=== PATIENT | male | born 1985 | race American Indian/Alaskan Native ===

== ENCOUNTER 2022-01-19 15:19 | Inpatient (IN) | payer SELFPAY ==
[2022-01-19 18:59] LABS: Hematocrit 34.1 % (35.5-45.6); Hemoglobin 11.5 gm/dl (11.8-15.2); Mean Corpuscular HGB Conc 34 % (32-34); Mean Corpuscular Volume 86 fl (84-94); Platelet Count 168 K/mm3 (140-440); Red Blood Count 3.96 M/mm3 (3.65-5.03); Red Cell Distribution Width 14.7 % (13.2-15.2)
[2022-01-19 19:11] LABS: Albumin 4.4 g/dL (3.9-5); Calcium 6.9 mg/dL (8.4-10.2)
[2022-01-19] MEDS ORDERED: ALBUTEROL 2.5 MG/3 ML NEBU IH ONE (20:26)
[2022-01-19] MEDS ORDERED: INSULIN REGULAR, HUMAN 100 UNITS/1 ML IV ONE ×2 (20:27→22:37)
[2022-01-19] MEDS ORDERED: CALCIUM GLUCONATE 1,000 MG in SODIUM CHLORIDE 0.9% 100 ML IV ONE (20:27)
[2022-01-19] MEDS ORDERED: SODIUM CHLORIDE 0.9% 1000 ML 1,000 ML IV ONE ×3 (20:27→22:40)
[2022-01-19] MEDS ORDERED: SODIUM POLYSTYRENE 15 GM/60 ML ORAL LIQD PO ONE (20:27)
[2022-01-19] MEDS ORDERED: DEXTROSE 50% IN WATER (25GM) 50 ML SYRINGE IV ONE ×3 (20:27→22:36)
--- NOTE | 2022-01-19 20:34 | Emergency Department Report ---
ED N/V/D HPI - General Chief complaint: Nausea/Vomiting/Diarrhea Stated complaint: N/V X5 BAGS/ GENERAL WEAKNESS Time Seen by Provider: 01/19/22 20:10 Source: patient, EMS Mode of arrival: Stretcher Limitations: No Limitations - History of Present Illness Initial comments: 36-year-old male with past medical history of HIV with undetectable viral load and hypertension presents to the hospital with complaints of generalized fatigue, weakness, and nausea and vomiting with decreased p.o. intake for the past 3 to 4 days. Patient states 1 month ago was PMD informed him that he had renal insufficiency and needed to follow-up with a race car driver. Patient has been unable to follow-up due to insurance issues. Patient denies abdominal pain, previous abdominal surgeries, fever, shortness of breath, chest pain, or dysuria. Increased urinary output reported. Current medications include carvedilol 12.5 mg twice daily Amlodipine 10 mg daily Tivicay 50 mg daily - Related Data Allergies Allergy/AdvReac Type Severity Reaction Status Date / Time No Known Allergies Allergy Unverified 01/19/22 15:40 ED Review of Systems ROS: Stated complaint: N/V X5 BAGS/ GENERAL WEAKNESS Other details as noted in HPI Comment: All other systems reviewed and negative ED Past Medical Hx - Past Medical History Hx Hypertension: Yes Hx HIV: Yes ED Physical Exam - General Limitations: No Limitations - Other Other exam information: General: No acute distress Head: Atraumatic Eyes: normal appearance ENT: Moist mucous membranes Neck: Normal appearance, no midline tenderness Chest: Clear to auscultation bilaterally CV: Regular rate and rhythm Abdomen: Soft, normal bowel sounds, nontender, nondistended, no rebound or guarding Back: Normal inspection Extremity: Normal inspection, full range of motion, no edema Neuro: Alert O x 3, no facial asymmetry, speech clear, no gross motor sensory deficit Psych: Appropriate behavior Skin: No rash ED Course Vital Signs 01/19/22 01/19/22 01/19/22 15:35 20:48 20:55 Temperature 98.7 F Pulse Rate 82 82 Pulse Rate [ 85 Bilateral Throughout] Respiratory 18 20 Rate Blood Pressure Blood Pressure 172/84 [Left] O2 Sat by Pulse 96 96 Oximetry 01/19/22 01/19/22 01/19/22 21:00 21:15 21:33 Temperature Pulse Rate 83 85 104 H Pulse Rate [ Bilateral Throughout] Respiratory 18 16 Rate Blood Pressure 214/128 191/148 211/113 Blood Pressure [Left] O2 Sat by Pulse 100 100 Oximetry - Reevaluation(s) Reevaluation #1: 01/19/22 22:43 Repeat blood pressure reveals that patient is hypertensive. 1 dose of hydralazine provided. Cardene drip ordered for titration of blood pressure. - Consultations Consultation #1: 01/19/22 22:41 case d/w DR Angélica Renee nephrology. He recommends additional meds: Second dose of D50 and insulin, Kayexalate 60 mEq after Zofran, additional amp of sodium bicarb, Bumex 2 mg IV, and bicarb drip at 125 mL/h. Recommends repeat BMP in 3 hours. If no improvement in potassium patient will likely require emergent dialysis and he request to be recontacted. Repeat BMP ordered for 1:30 AM. Hospitalist will be informed 01/19/22 22:52 Case discussed with critical care doctor Dr. Linton who will be involved in case during admission ED Medical Decision Making - Lab Data Result diagrams: 01/19/22 18:38 01/19/22 18:38 Lab Results 01/19/22 01/19/22 01/19/22 Range/Units 18:38 18:38 20:36 WBC 7.2 (4.5-11.0) K/mm3 RBC 3.96 (3.65-5.03) M/mm3 Hgb 11.5 L (11.8-15.2) gm/dl Hct 34.1 L (35.5-45.6) % MCV 86 (84-94) fl MCH 29 (28-32) pg MCHC 34 (32-34) % RDW 14.7 (13.2-15.2) % Plt Count 168 (140-440) K/mm3 Add Manual Diff Complete Total Counted 100 Seg Neuts % (Manual) 63.0 (40.0-70.0) % Band Neutrophils % 0 % Lymphocytes % (Manual) 33.0 (13.4-35.0) % Reactive Lymphs % (Man) 0 % Monocytes % (Manual) 1.0 (0.0-7.3) % Eosinophils % (Manual) 2.0 (0.0-4.3) % Basophils % (Manual) 1.0 (0.0-1.8) % Metamyelocytes % 0 % Myelocytes % 0 % Promyelocytes % 0 % Blast Cells % 0 % Nucleated RBC % Not Reportable Seg Neutrophils # Man 4.5 (1.8-7.7) K/mm3 Band Neutrophils # 0.0 K/mm3 Lymphocytes # (Manual) 2.4 (1.2-5.4) K/mm3 Abs React Lymphs (Man) 0.0 K/mm3 Monocytes # (Manual) 0.1 (0.0-0.8) K/mm3 Eosinophils # (Manual) 0.1 (0.0-0.4) K/mm3 Basophils # (Manual) 0.1 (0.0-0.1) K/mm3 Metamyelocytes # 0.0 K/mm3 Myelocytes # 0.0 K/mm3 Promyelocytes # 0.0 K/mm3 Blast Cells # 0.0 K/mm3 WBC Morphology Not Reportable Hypersegmented Neuts Not Reportable Hyposegmented Neuts Not Reportable Hypogranular Neuts Not Reportable Smudge Cells Not Reportable Toxic Granulation Not Reportable Toxic Vacuolation Not Reportable Dohle Bodies Not Reportable Pelger-Huet Anomaly Not Reportable Kallie Rods Not Reportable Platelet Estimate Consistent w auto Clumped Platelets Not Reportable Plt Clumps, EDTA Not Reportable Large Platelets Not Reportable Giant Platelets Not Reportable Platelet Satelliting Not Reportable Plt Morphology Comment Not Reportable RBC Morphology Not Reportable Dimorphic RBCs Not Reportable Polychromasia Not Reportable Hypochromasia Not Reportable Poikilocytosis Not Reportable Anisocytosis 1+ Microcytosis Not Reportable Macrocytosis Not Reportable Spherocytes Not Reportable Pappenheimer Bodies Not Reportable Sickle Cells Not Reportable Target Cells Not Reportable Tear Drop Cells Not Reportable Ovalocytes Not Reportable Helmet Cells Not Reportable [place] Bodies Not Reportable [place] Rings Not Reportable [place] Cells Not Reportable Bite Cells Not Reportable Crenated Cell Not Reportable Elliptocytes Not Reportable Acanthocytes (Spur) Not Reportable Rouleaux Not Reportable Hemoglobin C Crystals Not Reportable Schistocytes Not Reportable Malaria parasites Not Reportable Edgardo Bodies Not Reportable Hem Pathologist Commnt No Sodium 129 L (137-145) mmol/L Potassium 6.5 H* (3.6-5.0) mmol/L Chloride 83.3 L (98-107) mmol/L Carbon Dioxide 11 L (22-30) mmol/L Anion Gap 41 mmol/L BUN 222 H (9-20) mg/dL Creatinine 32.6 H (0.8-1.3) mg/dL Estimated GFR 2 ml/min BUN/Creatinine Ratio 7 % Glucose 107 H (75-100) mg/dL Calcium 6.9 L (8.4-10.2) mg/dL Total Bilirubin 0.40 (0.1-1.2) mg/dL AST 21 (5-40) units/L ALT 25 (7-56) units/L Alkaline Phosphatase 97 (35-129) units/L Total Protein 8.7 H (6.3-8.2) g/dL Albumin 4.4 (3.9-5) g/dL Albumin/Globulin Ratio 1.0 % Lipase 445 H (13-60) units/L Urine Color (Yellow) Urine Turbidity (Clear) Urine pH (5.0-7.0) Ur Specific [place] (1.003-1.030) Urine Protein (Negative) mg/dL Urine Glucose (UA) (Negative) mg/dL Urine Ketones (Negative) mg/dL Urine Blood (Negative) Urine Nitrite (Negative) Ur Reducing Substances Urine Bilirubin (Negative) Urine Ictotest Urine Urobilinogen (<2.0) mg/dL Ur Leukocyte Esterase (Negative) Urine WBC (Auto) (0.0-6.0) /HPF Urine RBC (Auto) (0.0-6.0) /HPF U Epithel Cells (Auto) (0-13.0) /HPF Urine Bacteria (Auto) (Negative) /HPF 01/19/ Range/Units Unknown WBC (4.5-11.0) K/mm3 RBC (3.65-5.03) M/mm3 Hgb (11.8-15.2) gm/dl Hct (35.5-45.6) % MCV (84-94) fl MCH (28-32) pg MCHC (32-34) % RDW (13.2-15.2) % Plt Count (140-440) K/mm3 Add Manual Diff Total Counted Seg Neuts % (Manual) (40.0-70.0) % Band Neutrophils % % Lymphocytes % (Manual) (13.4-35.0) % Reactive Lymphs % (Man) % Monocytes % (Manual) (0.0-7.3) % Eosinophils % (Manual) (0.0-4.3) % Basophils % (Manual) (0.0-1.8) % Metamyelocytes % % Myelocytes % % Promyelocytes % % Blast Cells % % Nucleated RBC % Seg Neutrophils # Man (1.8-7.7) K/mm3 Band Neutrophils # K/mm3 Lymphocytes # (Manual) (1.2-5.4) K/mm3 Abs React Lymphs (Man) K/mm3 Monocytes # (Manual) (0.0-0.8) K/mm3 Eosinophils # (Manual) (0.0-0.4) K/mm3 Basophils # (Manual) (0.0-0.1) K/mm3 Metamyelocytes # K/mm3 Myelocytes # K/mm3 Promyelocytes # K/mm3 Blast Cells # K/mm3 WBC Morphology Hypersegmented Neuts Hyposegmented Neuts Hypogranular Neuts Smudge Cells Toxic Granulation Toxic Vacuolation Dohle Bodies Pelger-Huet Anomaly Kallie Rods Platelet Estimate Clumped Platelets Plt Clumps, EDTA Large Platelets Giant Platelets Platelet Satelliting Plt Morphology Comment RBC Morphology Dimorphic RBCs Polychromasia Hypochromasia Poikilocytosis Anisocytosis Microcytosis Macrocytosis Spherocytes Pappenheimer Bodies Sickle Cells Target Cells Tear Drop Cells Ovalocytes Helmet Cells [place]aria[place] Bodies [place] Rings Son[place] Cells Bite Cells Crenated Cell Elliptocytes Acanthocytes (Spur) Rouleaux Hemoglobin C Crystals Schistocytes Malaria parasites Edgardo Bodies Hem Pathologist Commnt Sodium (137-145) mmol/L Potassium (3.6-5.0) mmol/L Chloride (98-107) mmol/L Carbon Dioxide (22-30) mmol/L Anion Gap mmol/L BUN (9-20) mg/dL Creatinine (0.8-1.3) mg/dL Estimated GFR ml/min BUN/Creatinine Ratio % Glucose (75-100) mg/dL Calcium (8.4-10.2) mg/dL Total Bilirubin (0.1-1.2) mg/dL AST (5-40) units/L ALT (7-56) units/L Alkaline Phosphatase (35-129) units/L Total Protein (6.3-8.2) g/dL Albumin (3.9-5) g/dL Albumin/Globulin Ratio % Lipase (13-60) units/L Urine Color Yellow (Yellow) Urine Turbidity Slightly cloudy (Clear) Urine pH 6.0 (5.0-7.0) Ur Specific [place] 1.025 (1.003-1.030) Urine Protein 100 mg/dl (Negative) mg/dL Urine Glucose (UA) Negative (Negative) mg/dL Urine Ketones Negative (Negative) mg/dL Urine Blood Trace (Negative) Urine Nitrite Negative (Negative) Ur Reducing Substances Not Reportable Urine Bilirubin Negative (Negative) Urine Ictotest Not Reportable Urine Urobilinogen 2.0 (<2.0) mg/dL Ur Leukocyte Esterase Negative (Negative) Urine WBC (Auto) 4.0 (0.0-6.0) /HPF Urine RBC (Auto) 2.0 (0.0-6.0) /HPF U Epithel Cells (Auto) 2.0 (0-13.0) /HPF Urine Bacteria (Auto) 1+ (Negative) /HPF - EKG Data -: EKG Interpreted by Ct EKG shows normal: sinus rhythm, ST-T waves (Peaked T waves) Rate: normal - EKG Data When compared to previous EKG there are: previous EKG unavailable - Radiology Data Radiology results: report reviewed CHEST 1 VIEW 01/19/2022 8:46 PM INDICATION / CLINICAL INFORMATION: n,v acute renal failure. COMPARISON: None available. FINDINGS: SUPPORT DEVICES: None. HEART / MEDIASTINUM: No significant abnormality. LUNGS / PLEURA: No significant pulmonary or pleural abnormality. No pneumothorax. ADDITIONAL FINDINGS: No significant additional findings. IMPRESSION: 1. No acute findings. CT ABDOMEN AND PELVIS WITHOUT CONTRAST INDICATION / CLINICAL INFORMATION: acute renal failure, n,v. TECHNIQUE: Axial CT images were obtained through the abdomen and pelvis without IV contrast. All CT scans at this location are performed using CT dose reduction for ALARA by means of automated exposure control. COMPARISON: None available. FINDINGS: LOWER CHEST: No significant abnormality. LIVER: No significant abnormality. GALLBLADDER: No significant abnormality. BILE DUCTS: No significant abnormality. PANCREAS: No significant abnormality. SPLEEN: No significant abnormality. ADRENALS: No significant abnormality. RIGHT KIDNEY / URETER: No significant abnormality. LEFT KIDNEY / URETER: No significant abnormality. STOMACH / SMALL BOWEL: No significant abnormality. COLON: No significant abnormality. APPENDIX: No significant abnormality. PERITONEUM: No free fluid. No free air. No fluid collection. LYMPH NODES: No significant adenopathy. AORTA / ARTERIES: No significant abnormality. IVC / VEINS: No significant abnormality. URINARY BLADDER: No significant abnormality. REPRODUCTIVE ORGANS: No significant abnormality. ADDITIONAL FINDINGS: None. SKELETAL SYSTEM: No significant abnormality. IMPRESSION: 1. No acute process in the abdomen or pelvis. No urinary tract calculi or hydronephrosis. - Medical Decision Making 36-year-old male with history HIV hypertension presents to the hospital with 3 days of fatigue nausea and vomiting. Labs reveal significant renal failure likely acute on chronic with hyperkalemia and metabolic acidosis. EKG shows peaked T waves. Patient was medicated for hyperkalemia. Patient did have an episode of vomiting after Kayexalate. Zofran ordered with additional Kayexalate dosing. Patient was also treated with sodium bicarb, calcium gluconate, insulin, glucose, albuterol,and Bumex and bicarb drip orderd after consultation with nephrology. Repeat BMP ordered and pending for drawl at 1:30 AM. Patient aware that he has worsening kidney failure and may require dialysis. No signs of renal obstruction identified on noncontrast CT abdomen pelvis he seems hesitant however, he was informed that his potassium does not increase he may need to have emergent dialysis. Patient does have good urine output without signs of volume overload, leg edema, or CHF. 1 dose of hydralazine provided in Cardene drip initiated for hypertensive emergency. Patient will require ICU admission and critical care consulted. Hospitalist to admit Critical Care Time: Yes Critical care time in (mins) excluding proc time.: 40 Critical care attestation.: If time is entered above; I have spent that time in minutes in the direct care of this critically ill patient, excluding procedure time. Critical Care Time: 40 Minutes of critical care time excluding procedures were used in the care of the patient. I discussed treatment plan with the nursing team members. Patient required multiple interventions and reassessments. Spoke with hospitalist and consultants for collaborative care ED Disposition Clinical Impression: Hypertensive emergency, Acute on chronic renal failure, Hyperkalemia, Metabolic acidosis, Nausea and vomiting, HIV (human immunodeficiency virus infection) Disposition: 09 ADMITTED INPATIENT Is pt being admited?: Yes Condition: Stable Time of Disposition: 22:54 (Dr De/hosptialist)
[2022-01-19 20:54] LABS: Anisocytosis 1+; Total Cells Counted 100
[2022-01-19 20:55] LABS: Platelet Estimate Consistent w Auto
[2022-01-19] MEDS: SODIUM POLYSTYRENE 15 GM/60 ML ORAL LIQD PO ONE (21:00)
--- NOTE | 2022-01-19 21:03 | XRay Report ---
CHEST 1 VIEW 01/19/2022 8:46 PM INDICATION / CLINICAL INFORMATION: n,v acute renal failure. COMPARISON: None available. FINDINGS: SUPPORT DEVICES: None. HEART / MEDIASTINUM: No significant abnormality. LUNGS / PLEURA: No significant pulmonary or pleural abnormality. No pneumothorax. ADDITIONAL FINDINGS: No significant additional findings. IMPRESSION: 1. No acute findings. Signer Name: Atul Schilling MD Signed: 01/19/2022 8:59 PM Workstation Name: [id number]
[2022-01-19] MEDS: SODIUM BICARB 8.4% 50 MEQ/50 ML SYRINGE IV ONE (21:06)
[2022-01-19] MEDS ORDERED: hydrALAZINE 20 MG/1 ML INJ IV ONE (21:24)
[2022-01-19] MEDS ORDERED: ONDANSETRON 4 MG/2 ML INJ IV ONE (21:29)
[2022-01-19 21:55] LABS: Bacteria,Urine 1+ /HPF (Negative)
[2022-01-19] MEDS ORDERED: niCARdipine DRIP 40 MG/200 ML BAG IV ONE (21:58)
[2022-01-19 22:06] LABS: Bilirubin,Urine Negative (Negative); Color,Urine Yellow (Yellow)
[2022-01-19 22:07] LABS: Blood,Urine Trace (Negative)
--- NOTE | 2022-01-19 22:20 | Cat Scan Report ---
CT ABDOMEN AND PELVIS WITHOUT CONTRAST INDICATION / CLINICAL INFORMATION: acute renal failure, n,v. TECHNIQUE: Axial CT images were obtained through the abdomen and pelvis without IV contrast. All CT scans at this location are performed using CT dose reduction for ALARA by means of automated exposure control. COMPARISON: None available. FINDINGS: LOWER CHEST: No significant abnormality. LIVER: No significant abnormality. GALLBLADDER: No significant abnormality. BILE DUCTS: No significant abnormality. PANCREAS: No significant abnormality. SPLEEN: No significant abnormality. ADRENALS: No significant abnormality. RIGHT KIDNEY / URETER: No significant abnormality. LEFT KIDNEY / URETER: No significant abnormality. STOMACH / SMALL BOWEL: No significant abnormality. COLON: No significant abnormality. APPENDIX: No significant abnormality. PERITONEUM: No free fluid. No free air. No fluid collection. LYMPH NODES: No significant adenopathy. AORTA / ARTERIES: No significant abnormality. IVC / VEINS: No significant abnormality. URINARY BLADDER: No significant abnormality. REPRODUCTIVE ORGANS: No significant abnormality. ADDITIONAL FINDINGS: None. SKELETAL SYSTEM: No significant abnormality. IMPRESSION: 1. No acute process in the abdomen or pelvis. No urinary tract calculi or hydronephrosis. Signer Name: Atul Schilling MD Signed: 01/19/2022 10:15 PM Workstation Name: [id number]
[2022-01-19] MEDS ORDERED: BUMETANIDE 1 MG/4 ML INJ IV ONE (22:38)
[2022-01-19] MEDS ORDERED: SODIUM BICARB 8.4% 50 MEQ/50 ML SYRINGE IV ONE (22:40)
[2022-01-19] MEDS ORDERED: MORPHINE 4 MG/1 ML INJ IV PRN (22:50)
--- NOTE | 2022-01-19 22:58 | History and Physical Report ---
History of Present Illness Date of examination: 01/19/22 Date of admission: 01/19/22 Chief complaint: Nausea vomiting diarrhea History of present illness: 6-year-old male with past medical history of HIV with undetectable viral load and hypertension presents to the hospital with complaints of generalized fatigue, weakness, and nausea and vomiting with decreased p.o. intake for the past 3 to 4 days. Patient states 1 month ago was PMD informed him that he had renal insufficiency and needed to follow-up with a beater dumper. Patient has been unable to follow-up due to insurance issues. Patient denies abdominal pain, previous abdominal surgeries, fever, shortness of breath, chest pain, or dysuria. Increased urinary output reported. In the emergency room patient was found to have potassium of 6.5, anion gap 41, BUN 222 creatinine 32.6, lipase 445 case d/w DR Angélica Renee nephrology. He recommends additional meds: Second dose of D50 and insulin, Kayexalate 60 mEq after Zofran, additional amp of sodium bicarb, Bumex 2 mg IV, and bicarb drip at 125 mL/h. Recommends repeat BMP in 3 hours Past History Past Medical History: HIV/AIDS, hypertension Past Surgical History: No surgical history Social history: no significant social history Family history: hypertension Medications and Allergies Allergies Allergy/AdvReac Type Severity Reaction Status Date / Time No Known Allergies Allergy Unverified 01/19/22 15:40 Active Meds: Active Medications Nicardipine/Sodium Chloride (Cardene Drip 40 Mg/200 Ml) 40 mg in 200 mls @ 25 mls/hr IV ONCE ONE; Protocol Stop: 01/20/22 05:57 Sodium Chloride (Nacl 0.9% 1000 Ml) 1,000 mls @ 999 mls/hr IV BOLUS ONE Stop: 01/19/22 23:40 Sodium Bicarbonate 150 meq/ (Dextrose) 1,150 mls @ 125 mls/hr IV DIRECT JENNY Review of Systems Constitutional: fatigue, weakness, malaise, lethargy Gastrointestinal: nausea, vomiting, diarrhea Exam - Constitutional Vitals: Temp Pulse Resp BP Pulse Ox 98.7 F 104 H 16 211/113 100 01/19/22 15:35 01/19/22 21:33 01/19/22 21:15 01/19/22 21:33 01/19/22 21:15 General appearance: Present: no acute distress, well-nourished - EENT Eyes: Present: PERRL ENT: hearing intact, clear oral mucosa - Neck Neck: Present: supple, normal ROM - Respiratory Respiratory effort: normal Respiratory: bilateral: CTA - Cardiovascular Heart Sounds: Present: S1 & S2. Absent: rub, click - Extremities Extremities: pulses symmetrical, No edema Peripheral Pulses: within normal limits - Abdominal General gastrointestinal: Present: soft, non-tender, non-distended, normal bowel sounds Male genitourinary: Present: normal - Integumentary Integumentary: Present: clear, warm, dry - Musculoskeletal Musculoskeletal: gait normal, strength equal bilaterally - Psychiatric Psychiatric: appropriate mood/affect, intact judgment & insight - Neurologic Neurologic: CNII-XII intact, moves all extremities Results - Labs CBC & Chem 7: 01/19/22 18:38 01/19/22 18:38 Labs: Laboratory Last Values WBC 7.2 K/mm3 (4.5-11.0) 01/19/22 18:38 RBC 3.96 M/mm3 (3.65-5.03) 01/19/22 18:38 Hgb 11.5 gm/dl (11.8-15.2) L 01/19/22 18:38 Hct 34.1 % (35.5-45.6) L 01/19/22 18:38 MCV 86 fl (84-94) 01/19/22 18:38 MCH 29 pg (28-32) 01/19/22 18:38 MCHC 34 % (32-34) 01/19/22 18:38 RDW 14.7 % (13.2-15.2) 01/19/22 18:38 Plt Count 168 K/mm3 (140-440) 01/19/22 18:38 Add Manual Diff Complete 01/19/22 18:38 Total Counted 100 01/19/22 18:38 Seg Neuts % (Manual) 63.0 % (40.0-70.0) 01/19/22 18:38 Band Neutrophils % 0 % 01/19/22 18:38 Lymphocytes % (Manual) 33.0 % (13.4-35.0) 01/19/22 18:38 Reactive Lymphs % (Man) 0 % 01/19/22 18:38 Monocytes % (Manual) 1.0 % (0.0-7.3) 01/19/22 18:38 Eosinophils % (Manual) 2.0 % (0.0-4.3) 01/19/22 18:38 Basophils % (Manual) 1.0 % (0.0-1.8) 01/19/22 18:38 Metamyelocytes % 0 % 01/19/22 18:38 Myelocytes % 0 % 01/19/22 18:38 Promyelocytes % 0 % 01/19/22 18:38 Blast Cells % 0 % 01/19/22 18:38 Nucleated RBC % Not Reportable 01/19/22 18:38 Seg Neutrophils # Man 4.5 K/mm3 (1.8-7.7) 01/19/22 18:38 Band Neutrophils # 0.0 K/mm3 01/19/22 18:38 Lymphocytes # (Manual) 2.4 K/mm3 (1.2-5.4) 01/19/22 18:38 Abs React Lymphs (Man) 0.0 K/mm3 01/19/22 18:38 Monocytes # (Manual) 0.1 K/mm3 (0.0-0.8) 01/19/22 18:38 Eosinophils # (Manual) 0.1 K/mm3 (0.0-0.4) 01/19/22 18:38 Basophils # (Manual) 0.1 K/mm3 (0.0-0.1) 01/19/22 18:38 Metamyelocytes # 0.0 K/mm3 01/19/22 18:38 Myelocytes # 0.0 K/mm3 01/19/22 18:38 Promyelocytes # 0.0 K/mm3 01/19/22 18:38 Blast Cells # 0.0 K/mm3 01/19/22 18:38 WBC Morphology Not Reportable 01/19/22 18:38 Hypersegmented Neuts Not Reportable 01/19/22 18:38 Hyposegmented Neuts Not Reportable 01/19/22 18:38 Hypogranular Neuts Not Reportable 01/19/22 18:38 Smudge Cells Not Reportable 01/19/22 18:38 Toxic Granulation Not Reportable 01/19/22 18:38 Toxic Vacuolation Not Reportable 01/19/22 18:38 Dohle Bodies Not Reportable 01/19/22 18:38 Pelger-Huet Anomaly Not Reportable 01/19/22 18:38 Kallie Rods Not Reportable 01/19/22 18:38 Platelet Estimate Consistent w auto 01/19/22 18:38 Clumped Platelets Not Reportable 01/19/22 18:38 Plt Clumps, EDTA Not Reportable 01/19/22 18:38 Large Platelets Not Reportable 01/19/22 18:38 Giant Platelets Not Reportable 01/19/22 18:38 Platelet Satelliting Not Reportable 01/19/22 18:38 Plt Morphology Comment Not Reportable 01/19/22 18:38 RBC Morphology Not Reportable 01/19/22 18:38 Dimorphic RBCs Not Reportable 01/19/22 18:38 Polychromasia Not Reportable 01/19/22 18:38 Hypochromasia Not Reportable 01/19/22 18:38 Poikilocytosis Not Reportable 01/19/22 18:38 Anisocytosis 1+ 01/19/22 18:38 Microcytosis Not Reportable 01/19/22 18:38 Macrocytosis Not Reportable 01/19/22 18:38 Spherocytes Not Reportable 01/19/22 18:38 Pappenheimer Bodies Not Reportable 01/19/22 18:38 Sickle Cells Not Reportable 01/19/22 18:38 Target Cells Not Reportable 01/19/22 18:38 Tear Drop Cells Not Reportable 01/19/22 18:38 Ovalocytes Not Reportable 01/19/22 18:38 Helmet Cells Not Reportable 01/19/22 18:38 Santamaria-Gloster Bodies Not Reportable 01/19/22 18:38 Avilla Rings Not Reportable 01/19/22 18:38 Sonido Cells Not Reportable 01/19/22 18:38 Bite Cells Not Reportable 01/19/22 18:38 Crenated Cell Not Reportable 01/19/22 18:38 Elliptocytes Not Reportable 01/19/22 18:38 Acanthocytes (Spur) Not Reportable 01/19/22 18:38 Rouleaux Not Reportable 01/19/22 18:38 Hemoglobin C Crystals Not Reportable 01/19/22 18:38 Schistocytes Not Reportable 01/19/22 18:38 Malaria parasites Not Reportable 01/19/22 18:38 Edgardo Bodies Not Reportable 01/19/22 18:38 Hem Pathologist Commnt No 01/19/22 18:38 Sodium 129 mmol/L (137-145) L 01/19/22 18:38 Potassium 6.5 mmol/L (3.6-5.0) H* 01/19/22 18:38 Chloride 83.3 mmol/L (98-107) L 01/19/22 18:38 Carbon Dioxide 11 mmol/L (22-30) L 01/19/22 18:38 Anion Gap 41 mmol/L 01/19/22 18:38 BUN 222 mg/dL (9-20) H 01/19/22 18:38 Creatinine 32.6 mg/dL (0.8-1.3) H 01/19/22 18:38 Estimated GFR 2 ml/min 01/19/22 18:38 BUN/Creatinine Ratio 7 % 01/19/22 18:38 Glucose 107 mg/dL (75-100) H 01/19/22 18:38 Calcium 6.9 mg/dL (8.4-10.2) L 01/19/22 18:38 Total Bilirubin 0.40 mg/dL (0.1-1.2) 01/19/22 18:38 AST 21 units/L (5-40) 01/19/22 18:38 ALT 25 units/L (7-56) 01/19/22 18:38 Alkaline Phosphatase 97 units/L (35-129) 01/19/22 18:38 Total Protein 8.7 g/dL (6.3-8.2) H 01/19/22 18:38 Albumin 4.4 g/dL (3.9-5) 01/19/22 18:38 Albumin/Globulin Ratio 1.0 % 01/19/22 18:38 Lipase 445 units/L (13-60) H 01/19/22 20:36 Urine Color Yellow (Yellow) 01/19/22 Unknown Urine Turbidity Slightly cloudy (Clear) 01/19/22 Unknown Urine pH 6.0 (5.0-7.0) 01/19/22 Unknown Ur Specific [place] 1.025 (1.003-1.030) 01/19/22 Unknown Urine Protein 100 mg/dl mg/dL (Negative) 01/19/22 Unknown Urine Glucose (UA) Negative mg/dL (Negative) 01/19/22 Unknown Urine Ketones Negative mg/dL (Negative) 01/19/22 Unknown Urine Blood Trace (Negative) 01/19/22 Unknown Urine Nitrite Negative (Negative) 01/19/22 Unknown Ur Reducing Substances Not Reportable 01/19/22 Unknown Urine Bilirubin Negative (Negative) 01/19/22 Unknown Urine Ictotest Not Reportable 01/19/22 Unknown Urine Urobilinogen 2.0 mg/dL (<2.0) 01/19/22 Unknown Ur Leukocyte Esterase Negative (Negative) 01/19/22 Unknown Urine WBC (Auto) 4.0 /HPF (0.0-6.0) 01/19/22 Unknown Urine RBC (Auto) 2.0 /HPF (0.0-6.0) 01/19/22 Unknown U Epithel Cells (Auto) 2.0 /HPF (0-13.0) 01/19/22 Unknown Urine Bacteria (Auto) 1+ /HPF (Negative) 01/19/22 Unknown - Imaging and Cardiology Chest x-ray: report reviewed CT scan - abdomen: report reviewed Assessment and Plan VTE prophylaxis?: Mechanical Plan of care discussed with patient/family: Yes - Patient Problems (1) Acute on chronic renal failure Current Visit: Yes Status: Acute Plan to address problem: Admit the patient to the ICU overnight. Avoid nephrotoxic drug. Renally dose medication. D5 half-normal saline at the rate of 150 cc/h. Nephrology evaluation for possible hemodialysis. Recheck BMP in the morning (2) Hyperkalemia Current Visit: Yes Status: Acute Plan to address problem: case d/w DR Angélica Renee nephrology. He recommends additional meds: Second dose of D50 and insulin, Kayexalate 60 mEq after Zofran, additional amp of sodium bicarb, Bumex 2 mg IV, and bicarb drip at 125 mL/h. Recommends repeat BMP in 3 hours (3) HIV (human immunodeficiency virus infection) Current Visit: Yes Status: Acute Plan to address problem: Is stable. We will continue the home home HIV medication. Outpatient follow-up with infectious disease (4) Hypertensive emergency Current Visit: Yes Status: Acute Plan to address problem: Patient is on Cardene drip. We will continue the home blood pressure medication. (5) Metabolic acidosis Current Visit: Yes Status: Acute Plan to address problem: D5 half-normal saline at the rate of 150 cc/h. Bicarb drip. Nephrology and critical care evaluation. Recheck BMP in the morning (6) Nausea and vomiting Current Visit: Yes Status: Acute Plan to address problem: Protonix 40 mg p.o. daily. Zofran 4 mg IV every 6 hours as needed. D5 half- normal saline at the rate of 150 cc/h. (7) DVT prophylaxis Current Visit: Yes Status: Acute Plan to address problem: SCD for DVT prophylaxis. Protonix 40 mg p.o. daily for GI prophylaxis. Patient is a full code
[2022-01-19] MEDS ORDERED: D5W/0.45% NACL 1,000 ML IV SCH (23:00)
[2022-01-20] MEDS: SODIUM BICARB 8.4% 50 MEQ/50 ML SYRINGE IV ONE (01:43)
[2022-01-20] MEDS: SODIUM POLYSTYRENE 15 GM/60 ML ORAL LIQD PO ONE (01:45)
[2022-01-20 03:28] LABS: Calcium 6.7 mg/dL (8.4-10.2)
[2022-01-20] MEDS: SODIUM BICARBONATE 150 MEQ in DEXTROSE 5% IN WATER 1,000 ML IV SCH ×3 (03:58→23:00)
[2022-01-20] MEDS: ONDANSETRON 4 MG/2 ML INJ IV PRN (05:25)
[2022-01-20] MEDS ORDERED: niCARdipine 50 MG in SODIUM CHLORIDE 0.9% 250ML 230 ML IV SCH (08:00)
--- NOTE | 2022-01-20 08:30 | Consultation ---
History of Present Illness - Reason for Consult Consult date: 01/20/22 acute renal failure - History of Present Illness 36 year old M with HIV and hx of CKD admitted with N/V, fatigue and poor PO intake. He was told by his PCP to see a extruder operator few weeks ago but never did. Patient denies abdominal pain, previous abdominal surgeries, fever, shortness of breath, chest pain, or dysuria. ROS: As in HPI otherwise 12 point review of systems -ve Past History Past Medical History: HIV/AIDS, hypertension Past Surgical History: No surgical history Social history: no significant social history Family history: hypertension Medications and Allergies Allergies Allergy/AdvReac Type Severity Reaction Status Date / Time No Known Allergies Allergy Unverified 01/19/22 15:40 Active Meds: Active Medications Acetaminophen (Acetaminophen 325 Mg Tab) 650 mg PO Q4H PRN PRN Reason: Pain MILD(1-3)/Fever >100.5/OSCAR Amlodipine Besylate (Amlodipine 10 Mg Tab) 10 mg PO QDAY JENNY Carvedilol (Carvedilol 12.5 Mg Tab) 12.5 mg PO BID JENNY Famotidine (Famotidine 20 Mg/2 Ml Inj) 20 mg IV DAILY JENNY Sodium Bicarbonate 150 meq/ (Dextrose) 1,150 mls @ 125 mls/hr IV DIRECT JENNY Last Admin: 01/20/22 03:58 Dose: 125 mls/hr Nicardipine HCl 50 mg/ Sodium (Chloride) 250 mls @ 25 mls/hr IV TITR JENNY; Protocol Last Admin: 01/20/22 08:14 Dose: 5 mg/hr, 25 mls/hr Morphine Sulfate (Morphine 2 Mg/1 Ml Inj) 2 mg IV Q4H PRN PRN Reason: Pain, Moderate (4-6) Morphine Sulfate (Morphine 4 Mg/1 Ml Inj) 4 mg IV Q4H PRN PRN Reason: Pain , Severe (7-10) Ondansetron HCl (Ondansetron 4 Mg/2 Ml Inj) 4 mg IV Q8H PRN PRN Reason: Nausea And Vomiting Last Admin: 01/20/22 05:25 Dose: 4 mg Sodium Bicarbonate (Sodium Bicarbonate 650 Mg Tab) 1,300 mg PO TID JENNY Sodium Chloride (Sodium Chloride 0.9% 10 Ml Flush Syringe) 10 ml IV BID JENNY Sodium Chloride (Sodium Chloride 0.9% 10 Ml Flush Syringe) 10 ml IV PRN PRN PRN Reason: LINE FLUSH Exam - Vital Signs Vital signs: Vital Signs Temp Pulse Resp BP Pulse Ox 98.7 F 82 18 172/84 96 01/19/22 15:35 01/19/22 15:35 01/19/22 15:35 01/19/22 15:35 01/19/22 15:35 - Physical Exam Narrative exam: General appearance: Present: no acute distress, well-nourished - EENT Eyes: Present: PERRL ENT: hearing intact, clear oral mucosa - Neck Neck: Present: supple, normal ROM - Respiratory Respiratory effort: normal Respiratory: bilateral: CTA - Cardiovascular Heart Sounds: Present: S1 & S2. Absent: rub, click - Extremities Extremities: pulses symmetrical, No edema Peripheral Pulses: within normal limits - Abdominal General gastrointestinal: Present: soft, non-tender, non-distended, normal bowel sounds Male genitourinary: Present: normal - Integumentary Integumentary: Present: clear, warm, dry - Musculoskeletal Musculoskeletal: gait normal, strength equal bilaterally - Psychiatric Psychiatric: appropriate mood/affect, intact judgment & insight - Neurologic Neurologic: CNII-XII intact, moves all extremities Results - Lab Results 01/20/22 11:23 01/20/22 11:23 Most recent lab results Calcium 6.7 mg/dL (8.4-10.2) L 01/20/22 02:35 Assessment and Plan Acute Kidney injury on top of CKD vs Progressive CKD: Hyperkalemia: Metabolic acidosis: HIV: HTN: Nausea and vomitinHPT from CKD: -Hydrate with bicarb drip -K coming down with medical Management -Check Renal US -Check Urine studies, CK level -No urgent HD indication right -If renal function does not improve, then may need HD, will monitor -Renally dose all meds -Avoid Nephrotoxic meds -Start bicarb tabs for acidosis -PTH high signalling 2HPT from CKD -Strict I/Os -Could have HIVJENNIFER Renee MD [phone]
[2022-01-20] MEDS ORDERED: CALCIUM GLUCONATE 2,000 MG in SODIUM CHLORIDE 0.9% 100 ML IV ONE (09:00)
[2022-01-20] MEDS: SODIUM BICARBONATE 650 MG TAB PO SCH ×3 (09:07→21:19)
[2022-01-20] MEDS: FAMOTIDINE 20 MG/2 ML INJ IV SCH (09:07)
[2022-01-20] MEDS: amLODIPine 10 MG TAB PO SCH (09:07)
[2022-01-20] MEDS ORDERED: carvediloL 12.5 MG TAB PO SCH (10:00)
[2022-01-20] MEDS ORDERED: FAMOTIDINE 20 MG/2 ML INJ IV SCH (10:00)
--- NOTE | 2022-01-20 10:43 | Electrocardiograph Report ---
[facility] Test Date: 2022-01-19 Test Time: 20:31:59 Pat Name: YARITZA SAMUEL Department: Room: A263 1 Gender: M Head Of English: KENDRA : 1985 Requested By: PAULINE FIORE Order Number: [id number] Reading MD: Osvaldo Hathaway Measurements Intervals [place] Rate: 73 P: 51 DC: 149 QRS: 1 QRSD: 99 T: 59 QT: 415 QTc: 458 Interpretive Statements Sinus rhythm Probable left atrial enlargement ST elev, probable normal early repol pattern No previous ECG available for comparison Electronically Signed On 01-20-2022 10:42:32 EDT by Osvaldo Hathaway
[2022-01-20] MEDS ORDERED: hydrALAZINE 20 MG/1 ML INJ IV PRN (11:15)
--- NOTE | 2022-01-20 12:10 | Event Note ---
Date: 01/20/22 Full consult to follow: patient admitted with hyperkalemia, Hypertensive urgency and worsening renal failure but not oliguric or anuric. Per ED renal gave Bumex and want to monitor. K is better today. Patient not compliant with medication regimen at home. Holding HIV meds given degree of renal failure. Suggest increasing BB and adding IV hydralazine to wean cardene drip. Once off drip, should be ok to transfer to floor and renal can decide there if patient needs HD. If so, suggest just placing a permacath and being done with it.
[2022-01-20 12:29] LABS: Calcium 6.9 mg/dL (8.4-10.2)
[2022-01-20 12:30] LABS: Basophils % (Auto) 0.5 % (0.0-1.8); Eosinophils % (Auto) 0.6 % (0.0-4.3); Hematocrit 27.9 % (35.5-45.6); Hemoglobin 9.7 gm/dl (11.8-15.2); Lymphocytes % (Auto) 30.5 % (13.4-35.0); Mean Corpuscular HGB Conc 35 % (32-34); Mean Corpuscular Volume 84 fl (84-94); Monocytes # (Auto) 0.4 K/mm3 (0.0-0.8); Monocytes % (Auto) 6.1 % (0.0-7.3); Platelet Count 153 K/mm3 (140-440); Red Blood Count 3.33 M/mm3 (3.65-5.03)
[2022-01-20] MEDS: hydrALAZINE 20 MG/1 ML INJ IV SCH ×2 (13:06→18:05)
[2022-01-20] MEDS ORDERED: carvediloL 6.25 MG TAB PO ONE (13:16)
[2022-01-20] MEDS ORDERED: DEXTROSE 50% IN WATER (25GM) 50 ML SYRINGE IV PRN (13:29)
--- NOTE | 2022-01-20 13:36 | Progress Note ---
<[email or web address] - Last Filed: 01/20/22 13:44> Assessment and Plan Assessment and plan: This is a 36-year-old male with HIV/AIDS, HTN, ? Noncompliance admitted with hypertensive emergency and acute on chronic renal failure. Neuro: ? Compliance -Reorientation as needed -Maintain sleep-wake cycle -As needed analgesia Cardiac: h/o HTN -CCM consulted, appreciate recommendation -s/p Cardene drip -Home antihypertensive regimen: Coreg, amlodipine -Restart Coreg and increase, restart amlodipine -IV hydralazine -Blood pressure monitoring per protocol Respiratory: NAD -Currently on room air -Supplemental oxygen as needed -Pulmonary hygiene -SPO2 monitor per protocol GI: r/o Pancreatitis -Lipase 445, Amylase 357 -MIVF -PPI -CLD -Patient c/o N/V and abd pain -CT abd/pelvis shows no acute process in the abdomen or pelvis urinary tract calculi or hydronephrosis -Repeat amylase and lipase in AM : Hyponatremia, hypochloremia, metabolic acidosis, acute on chronic renal failure -Nephrology consulted, appreciate recommendations -Sodium bicarbonate drip -S/p Bumex -Monitor intake and output -Renally dose medications -Avoid nephrotoxic medications -Urine lytes pending -Renal ultrasound pending ID: COVID-[id number] PUI, h/o HIV/AIDs -COVID 19 PCR pending -Patient states that he has been vaccinated against COVID however had exposure to COVID-19 -Contact and droplet precautions -f/u blood culture -Monitor WBC and temperature curve -Will withhold hiv/aids medications in setting of DASWON Endo: Hyperglycemia -Avoid hypoglycemia -SSI -Accu-Cheks every 6 Heme: NAD -Trend CBC -Transfuse hemoglobin less than 7 -SCDs to BLE while in bed The high probability of a clinically significant, sudden or life threatening deterioration of the [renal, cardio] system(s) required my full and direct attention, intervention and personal management. The aggregate critical care time was [60] minutes. This time is in addition to time spent performing reported procedures but includes the following: [x] Data Review and interpretation [x] Patient assessment and monitoring of vital signs [x] Documentation [x] Medication orders and management Disposition Plan: transfer to [facility] Total Time Spent with Patient (Minutes): 60 History Interval history: This is 36-year-old male with HIV/AIDS (undetectable viral load per patient), HTN and questionable noncompliance who presented to the emergency department on 01/19 with generalized fatigue, weakness, nausea, vomiting, decreased p.o. intake for the past 3 to 4 days and shortness of breath for a month prior to presentation. Per H&P patient was informed that he had renal insufficiency by PCP and needed to follow-up with payroll auditor but has been unable to due to insurance issues. In the emergency department patient was found to be hyperkalemic, acidotic and with BUNs/creatinine of 222/32.6 and elevated lipase. Patient was also given Bumex IV and started on a bicarbonate drip. Patient also had hypertensive emergency with a blood pressure of 211/113 and was started on a nicardipine drip. Patient was medically treated for hyperkalemia and admitted to the hospitalist service with consults to CCM to the ICU. Hospital course to date: 01/20: Patient has been weaned off nicardipine since afternoon and restarted home amlodipine and Coreg, increase in coreg and IV hydral ordered. Transfer to [facility]. COVID-19 PCR pending. Patient currently refusing hemodialysis when informed that he may need hemodialysis but the decision will be made by the payroll auditor. Hospitalist Physical - Constitutional Vitals: Temp Pulse Resp BP Pulse Ox 97.9 F 83 15 160/95 100 01/20/22 11:39 01/20/22 12:00 01/20/22 12:00 01/20/22 11:00 01/20/22 12:00 General appearance: Present: no acute distress, well-nourished - EENT Eyes: Present: PERRL, EOM intact ENT: hearing intact, clear oral mucosa, dentition normal - Neck Neck: Present: normal ROM - Respiratory Respiratory effort: normal Respiratory: bilateral: CTA - Cardiovascular Rhythm: regular Heart Sounds: Present: S1 & S2. Absent: systolic murmur, diastolic murmur - Extremities Extremities: no ischemia, pulses intact, pulses symmetrical, No edema, normal temperature, normal color, Full ROM Peripheral Pulses: within normal limits - Abdominal General gastrointestinal: soft, non-tender, non-distended, normal bowel sounds - Integumentary Integumentary: Present: warm, dry - Psychiatric Psychiatric: appropriate mood/affect, agitated - Neurologic Neurologic: CNII-XII intact, no focal deficits, moves all extremities - Allied Health Allied health notes reviewed: nursing Results - Labs CBC & Chem 7: 01/20/22 11:23 01/20/22 11:23 Labs: Laboratory Last Values WBC 6.7 K/mm3 (4.5-11.0) 01/20/22 11:23 RBC 3.33 M/mm3 (3.65-5.03) L 01/20/22 11:23 Hgb 9.7 gm/dl (11.8-15.2) L 01/20/22 11:23 Hct 27.9 % (35.5-45.6) L D 01/20/22 11:23 MCV 84 fl (84-94) 01/20/22 11:23 MCH 29 pg (28-32) 01/20/22 11:23 MCHC 35 % (32-34) H 01/20/22 11:23 RDW 15.0 % (13.2-15.2) 01/20/22 11:23 Plt Count 153 K/mm3 (140-440) 01/20/22 11:23 Lymph % (Auto) 30.5 % (13.4-35.0) 01/20/22 11:23 Grant % (Auto) 6.1 % (0.0-7.3) 01/20/22 11:23 Eos % (Auto) 0.6 % (0.0-4.3) 01/20/22 11:23 Baso % (Auto) 0.5 % (0.0-1.8) 01/20/22 11:23 Lymph # (Auto) 2.0 K/mm3 (1.2-5.4) 01/20/22 11:23 Grant # (Auto) 0.4 K/mm3 (0.0-0.8) 01/20/22 11:23 Eos # (Auto) 0.0 K/mm3 (0.0-0.4) 01/20/22 11:23 Baso # (Auto) 0.0 K/mm3 (0.0-0.1) 01/20/22 11:23 Add Manual Diff Complete 01/19/22 18:38 Total Counted 100 01/19/22 18:38 Seg Neutrophils % 62.3 % (40.0-70.0) 01/20/22 11:23 Seg Neuts % (Manual) 63.0 % (40.0-70.0) 01/19/22 18:38 Band Neutrophils % 0 % 01/19/22 18:38 Lymphocytes % (Manual) 33.0 % (13.4-35.0) 01/19/22 18:38 Reactive Lymphs % (Man) 0 % 01/19/22 18:38 Monocytes % (Manual) 1.0 % (0.0-7.3) 01/19/22 18:38 Eosinophils % (Manual) 2.0 % (0.0-4.3) 01/19/22 18:38 Basophils % (Manual) 1.0 % (0.0-1.8) 01/19/22 18:38 Metamyelocytes % 0 % 01/19/22 18:38 Myelocytes % 0 % 01/19/22 18:38 Promyelocytes % 0 % 01/19/22 18:38 Blast Cells % 0 % 01/19/22 18:38 Nucleated RBC % Not Reportable 01/19/22 18:38 Seg Neutrophils # 4.2 K/mm3 (1.8-7.7) 01/20/22 11:23 Seg Neutrophils # Man 4.5 K/mm3 (1.8-7.7) 01/19/22 18:38 Band Neutrophils # 0.0 K/mm3 01/19/22 18:38 Lymphocytes # (Manual) 2.4 K/mm3 (1.2-5.4) 01/19/22 18:38 Abs React Lymphs (Man) 0.0 K/mm3 01/19/22 18:38 Monocytes # (Manual) 0.1 K/mm3 (0.0-0.8) 01/19/22 18:38 Eosinophils # (Manual) 0.1 K/mm3 (0.0-0.4) 01/19/22 18:38 Basophils # (Manual) 0.1 K/mm3 (0.0-0.1) 01/19/22 18:38 Metamyelocytes # 0.0 K/mm3 01/19/22 18:38 Myelocytes # 0.0 K/mm3 01/19/22 18:38 Promyelocytes # 0.0 K/mm3 01/19/22 18:38 Blast Cells # 0.0 K/mm3 01/19/22 18:38 WBC Morphology Not Reportable 01/19/22 18:38 Hypersegmented Neuts Not Reportable 01/19/22 18:38 Hyposegmented Neuts Not Reportable 01/19/22 18:38 Hypogranular Neuts Not Reportable 01/19/22 18:38 Smudge Cells Not Reportable 01/19/22 18:38 Toxic Granulation Not Reportable 01/19/22 18:38 Toxic Vacuolation Not Reportable 01/19/22 18:38 Dohle Bodies Not Reportable 01/19/22 18:38 Pelger-Huet Anomaly Not Reportable 01/19/22 18:38 Kallie Rods Not Reportable 01/19/22 18:38 Platelet Estimate Consistent w auto 01/19/22 18:38 Clumped Platelets Not Reportable 01/19/22 18:38 Plt Clumps, EDTA Not Reportable 01/19/22 18:38 Large Platelets Not Reportable 01/19/22 18:38 Giant Platelets Not Reportable 01/19/22 18:38 Platelet Satelliting Not Reportable 01/19/22 18:38 Plt Morphology Comment Not Reportable 01/19/22 18:38 RBC Morphology Not Reportable 01/19/22 18:38 Dimorphic RBCs Not Reportable 01/19/22 18:38 Polychromasia Not Reportable 01/19/22 18:38 Hypochromasia Not Reportable 01/19/22 18:38 Poikilocytosis Not Reportable 01/19/22 18:38 Anisocytosis 1+ 01/19/22 18:38 Microcytosis Not Reportable 01/19/22 18:38 Macrocytosis Not Reportable 01/19/22 18:38 Spherocytes Not Reportable 01/19/22 18:38 Pappenheimer Bodies Not Reportable 01/19/22 18:38 Sickle Cells Not Reportable 01/19/22 18:38 Target Cells Not Reportable 01/19/22 18:38 Tear Drop Cells Not Reportable 01/19/22 18:38 Ovalocytes Not Reportable 01/19/22 18:38 Helmet Cells Not Reportable 01/19/22 18:38 Santamaria-Odanah Bodies Not Reportable 01/19/22 18:38 [place] Rings Not Reportable 01/19/22 18:38 Sonido Cells Not Reportable 01/19/22 18:38 Bite Cells Not Reportable 01/19/22 18:38 Crenated Cell Not Reportable 01/19/22 18:38 Elliptocytes Not Reportable 01/19/22 18:38 Acanthocytes (Spur) Not Reportable 01/19/22 18:38 Rouleaux Not Reportable 01/19/22 18:38 Hemoglobin C Crystals Not Reportable 01/19/22 18:38 Schistocytes Not Reportable 01/19/22 18:38 Malaria parasites Not Reportable 01/19/22 18:38 Edgardo Bodies Not Reportable 01/19/22 18:38 Hem Pathologist Commnt No 01/19/22 18:38 Sodium 134 mmol/L (137-145) L 01/20/22 11:23 Potassium 4.2 mmol/L (3.6-5.0) 01/20/22 11:23 Chloride 87.2 mmol/L (98-107) L 01/20/22 11:23 Carbon Dioxide 15 mmol/L (22-30) L 01/20/22 11:23 Anion Gap 36 mmol/L 01/20/22 11:23 BUN 208 mg/dL (9-20) H 01/20/22 11:23 Creatinine 29.5 mg/dL (0.8-1.3) H 01/20/22 11:23 Estimated GFR 2 ml/min 01/20/22 11:23 BUN/Creatinine Ratio 7 % 01/20/22 11:23 Glucose 130 mg/dL (75-100) H 01/20/22 11:23 POC Glucose 126 mg/dL (70-105) H 01/20/22 04:35 Calcium 6.9 mg/dL (8.4-10.2) L 01/20/22 11:23 Total Bilirubin 0.40 mg/dL (0.1-1.2) 01/19/22 18:38 AST 21 units/L (5-40) 01/19/22 18:38 ALT 25 units/L (7-56) 01/19/22 18:38 Alkaline Phosphatase 97 units/L (35-129) 01/19/22 18:38 Total Protein 8.7 g/dL (6.3-8.2) H 01/19/22 18:38 Albumin 4.4 g/dL (3.9-5) 01/19/22 18:38 Albumin/Globulin Ratio 1.0 % 01/19/22 18:38 Amylase 357 units/L (27-131) H 01/20/22 11:23 Lipase 445 units/L (13-60) H 01/19/22 20:36 PTH Intact 443.7 pg/mL (15-65) H 01/20/22 11:38 Urine Color Yellow (Yellow) 01/19/22 Unknown Urine Turbidity Slightly cloudy (Clear) 01/19/22 Unknown Urine pH 6.0 (5.0-7.0) 01/19/22 Unknown Ur Specific [place] 1.025 (1.003-1.030) 01/19/22 Unknown Urine Protein 100 mg/dl mg/dL (Negative) 01/19/22 Unknown Urine Glucose (UA) Negative mg/dL (Negative) 01/19/22 Unknown Urine Ketones Negative mg/dL (Negative) 01/19/22 Unknown Urine Blood Trace (Negative) 01/19/22 Unknown Urine Nitrite Negative (Negative) 01/19/22 Unknown Ur Reducing Substances Not Reportable 01/19/22 Unknown Urine Bilirubin Negative (Negative) 01/19/22 Unknown Urine Ictotest Not Reportable 01/19/22 Unknown Urine Urobilinogen 2.0 mg/dL (<2.0) 01/19/22 Unknown Ur Leukocyte Esterase Negative (Negative) 01/19/22 Unknown Urine WBC (Auto) 4.0 /HPF (0.0-6.0) 01/19/22 Unknown Urine RBC (Auto) 2.0 /HPF (0.0-6.0) 01/19/22 Unknown U Epithel Cells (Auto) 2.0 /HPF (0-13.0) 01/19/22 Unknown Urine Bacteria (Auto) 1+ /HPF (Negative) 01/19/22 Unknown Kiran/IV: Voiding Method Urinal Active Medications - Current Medications Current Medications: Generic Name Dose Route Start Last Admin Trade Name Freq PRN Reason Stop Dose Admin Acetaminophen 650 mg 01/19/22 22:50 Acetaminophen 325 Mg Tab PO Q4H PRN Pain MILD(1-3)/Fever >100.5/OSCAR Amlodipine Besylate 10 mg 01/20/22 10:00 01/20/22 09:07 Amlodipine 10 Mg Tab PO 10 mg QDAY JENNY Administration Carvedilol 25 mg 01/20/22 22:00 Carvedilol 25 Mg Tab PO BID JENNY Carvedilol 12.5 mg 01/20/22 13:16 Carvedilol 6.25 Mg Tab PO 01/20/22 13:17 ONCE ONE Dextrose 50 ml 01/20/22 13:29 Dextrose 50% In Water (25gm) 50 Ml Syringe IV Q30MIN PRN Hypoglycemia Protocol Famotidine 20 mg 01/20/22 10:00 01/20/22 09:07 Famotidine 20 Mg/2 Ml Inj IV 20 mg DAILY JENNY Administration Hydralazine HCl 20 mg 01/20/22 12:00 01/20/22 13:06 Hydralazine 20 Mg/1 Ml Inj IV 20 mg Q6HR JENNY Administration Hydralazine HCl 10 mg 01/20/22 11:15 Hydralazine 20 Mg/1 Ml Inj IV Q4H PRN Hypertension Sodium Bicarbonate 150 meq/ 1,150 mls @ 125 mls/hr 01/19/22 23:00 01/20/22 03:58 Dextrose IV 125 mls/hr DIRECT JENNY Administration Nicardipine HCl 50 mg/ Sodium 250 mls @ 25 mls/hr 01/20/22 08:00 01/20/22 12:33 Chloride IV 0 mg/hr TITR JENNY 0 mls/hr Titration Protocol 5 MG/HR Insulin Human Regular 0 units 01/20/22 16:30 Insulin Regular, Human 100 Units/1 Ml SUB-Q AC JENNY Protocol Morphine Sulfate 2 mg 01/19/22 22:50 Morphine 2 Mg/1 Ml Inj IV Q4H PRN Pain, Moderate (4-6) Morphine Sulfate 4 mg 01/19/22 22:50 Morphine 4 Mg/1 Ml Inj IV Q4H PRN Pain , Severe (7-10) Ondansetron HCl 4 mg 01/19/22 22:50 01/20/22 05:25 Ondansetron 4 Mg/2 Ml Inj IV 4 mg Q8H PRN Administration Nausea And Vomiting Sodium Bicarbonate 1,300 mg 01/20/22 09:00 01/20/22 13:06 Sodium Bicarbonate 650 Mg Tab PO 1,300 mg TID JENNY Administration Sodium Chloride 10 ml 01/20/22 10:00 01/20/22 09:08 Sodium Chloride 0.9% 10 Ml Flush Syringe IV 10 ml BID JENNY Administration Sodium Chloride 10 ml 01/19/22 22:50 Sodium Chloride 0.9% 10 Ml Flush Syringe IV PRN PRN LINE FLUSH <TIARRASONA - Last Filed: 01/21/22 07:35> Assessment and Plan Assessment and plan: I saw and evaluated the patient. I agree with the findings and the plan of care as documented in the Nurse Practitioner's~note, with the following corrections and additions. Hospitalist Physical - Constitutional Vitals: Temp Pulse Resp BP Pulse Ox 98.4 F 78 13 153/80 99 01/21/22 04:00 01/21/22 07:00 01/21/22 07:00 01/21/22 07:00 01/21/22 06:00 Results - Labs CBC & Chem 7: 01/20/22 11:23 01/21/22 04:51 Labs: Laboratory Last Values WBC 6.7 K/mm3 (4.5-11.0) 01/20/22 11:23 RBC 3.33 M/mm3 (3.65-5.03) L 01/20/22 11:23 Hgb 9.7 gm/dl (11.8-15.2) L 01/20/22 11:23 Hct 27.9 % (35.5-45.6) L D 01/20/22 11:23 MCV 84 fl (84-94) 01/20/22 11:23 MCH 29 pg (28-32) 01/20/22 11:23 MCHC 35 % (32-34) H 01/20/22 11:23 RDW 15.0 % (13.2-15.2) 01/20/22 11:23 Plt Count 153 K/mm3 (140-440) 01/20/22 11:23 Lymph % (Auto) 30.5 % (13.4-35.0) 01/20/22 11:23 Grant % (Auto) 6.1 % (0.0-7.3) 01/20/22 11:23 Eos % (Auto) 0.6 % (0.0-4.3) 01/20/22 11:23 Baso % (Auto) 0.5 % (0.0-1.8) 01/20/22 11:23 Lymph # (Auto) 2.0 K/mm3 (1.2-5.4) 01/20/22 11:23 Grant # (Auto) 0.4 K/mm3 (0.0-0.8) 01/20/22 11:23 Eos # (Auto) 0.0 K/mm3 (0.0-0.4) 01/20/22 11:23 Baso # (Auto) 0.0 K/mm3 (0.0-0.1) 01/20/22 11:23 Add Manual Diff Complete 01/19/22 18:38 Total Counted 100 01/19/22 18:38 Seg Neutrophils % 62.3 % (40.0-70.0) 01/20/22 11:23 Seg Neuts % (Manual) 63.0 % (40.0-70.0) 01/19/22 18:38 Band Neutrophils % 0 % 01/19/22 18:38 Lymphocytes % (Manual) 33.0 % (13.4-35.0) 01/19/22 18:38 Reactive Lymphs % (Man) 0 % 01/19/22 18:38 Monocytes % (Manual) 1.0 % (0.0-7.3) 01/19/22 18:38 Eosinophils % (Manual) 2.0 % (0.0-4.3) 01/19/22 18:38 Basophils % (Manual) 1.0 % (0.0-1.8) 01/19/22 18:38 Metamyelocytes % 0 % 01/19/22 18:38 Myelocytes % 0 % 01/19/22 18:38 Promyelocytes % 0 % 01/19/22 18:38 Blast Cells % 0 % 01/19/22 18:38 Nucleated RBC % Not Reportable 01/19/22 18:38 Seg Neutrophils # 4.2 K/mm3 (1.8-7.7) 01/20/22 11:23 Seg Neutrophils # Man 4.5 K/mm3 (1.8-7.7) 01/19/22 18:38 Band Neutrophils # 0.0 K/mm3 01/19/22 18:38 Lymphocytes # (Manual) 2.4 K/mm3 (1.2-5.4) 01/19/22 18:38 Abs React Lymphs (Man) 0.0 K/mm3 01/19/22 18:38 Monocytes # (Manual) 0.1 K/mm3 (0.0-0.8) 01/19/22 18:38 Eosinophils # (Manual) 0.1 K/mm3 (0.0-0.4) 01/19/22 18:38 Basophils # (Manual) 0.1 K/mm3 (0.0-0.1) 01/19/22 18:38 Metamyelocytes # 0.0 K/mm3 01/19/22 18:38 Myelocytes # 0.0 K/mm3 01/19/22 18:38 Promyelocytes # 0.0 K/mm3 01/19/22 18:38 Blast Cells # 0.0 K/mm3 01/19/22 18:38 WBC Morphology Not Reportable 01/19/22 18:38 Hypersegmented Neuts Not Reportable 01/19/22 18:38 Hyposegmented Neuts Not Reportable 01/19/22 18:38 Hypogranular Neuts Not Reportable 01/19/22 18:38 Smudge Cells Not Reportable 01/19/22 18:38 Toxic Granulation Not Reportable 01/19/22 18:38 Toxic Vacuolation Not Reportable 01/19/22 18:38 Dohle Bodies Not Reportable 01/19/22 18:38 Pelger-Huet Anomaly Not Reportable 01/19/22 18:38 Kallie Rods Not Reportable 01/19/22 18:38 Platelet Estimate Consistent w auto 01/19/22 18:38 Clumped Platelets Not Reportable 01/19/22 18:38 Plt Clumps, EDTA Not Reportable 01/19/22 18:38 Large Platelets Not Reportable 01/19/22 18:38 Giant Platelets Not Reportable 01/19/22 18:38 Platelet Satelliting Not Reportable 01/19/22 18:38 Plt Morphology Comment Not Reportable 01/19/22 18:38 RBC Morphology Not Reportable 01/19/22 18:38 Dimorphic RBCs Not Reportable 01/19/22 18:38 Polychromasia Not Reportable 01/19/22 18:38 Hypochromasia Not Reportable 01/19/22 18:38 Poikilocytosis Not Reportable 01/19/22 18:38 Anisocytosis 1+ 01/19/22 18:38 Microcytosis Not Reportable 01/19/22 18:38 Macrocytosis Not Reportable 01/19/22 18:38 Spherocytes Not Reportable 01/19/22 18:38 Pappenheimer Bodies Not Reportable 01/19/22 18:38 Sickle Cells Not Reportable 01/19/22 18:38 Target Cells Not Reportable 01/19/22 18:38 Tear Drop Cells Not Reportable 01/19/22 18:38 Ovalocytes Not Reportable 01/19/22 18:38 Helmet Cells Not Reportable 01/19/22 18:38 Santamaria-Odanah Bodies Not Reportable 01/19/22 18:38 [place] Rings Not Reportable 01/19/22 18:38 Sonido Cells Not Reportable 01/19/22 18:38 Bite Cells Not Reportable 01/19/22 18:38 Crenated Cell Not Reportable 01/19/22 18:38 Elliptocytes Not Reportable 01/19/22 18:38 Acanthocytes (Spur) Not Reportable 01/19/22 18:38 Rouleaux Not Reportable 01/19/22 18:38 Hemoglobin C Crystals Not Reportable 01/19/22 18:38 Schistocytes Not Reportable 01/19/22 18:38 Malaria parasites Not Reportable 01/19/22 18:38 Edgardo Bodies Not Reportable 01/19/22 18:38 Hem Pathologist Commnt No 01/19/22 18:38 Sodium 134 mmol/L (137-145) L 01/21/22 04:51 Potassium 3.6 mmol/L (3.6-5.0) 01/21/22 04:51 Chloride 83.4 mmol/L (98-107) L 01/21/22 04:51 Carbon Dioxide 22 mmol/L (22-30) 01/21/22 04:51 Anion Gap 32 mmol/L 01/21/22 04:51 BUN 198 mg/dL (9-20) H 01/21/22 04:51 Creatinine 28.1 mg/dL (0.8-1.3) H 01/21/22 04:51 Estimated GFR 2 ml/min 01/21/22 04:51 BUN/Creatinine Ratio 7 % 01/21/22 04:51 Glucose 130 mg/dL (75-100) H 01/21/22 04:51 POC Glucose 141 mg/dL (70-105) H 01/21/22 02:06 Calcium 6.1 mg/dL (8.4-10.2) L 01/21/22 04:51 Phosphorus 12.40 mg/dL (2.5-4.5) H 01/21/22 04:51 Magnesium 2.10 mg/dL (1.7-2.3) 01/21/22 04:51 Total Bilirubin 0.40 mg/dL (0.1-1.2) 01/19/22 18:38 AST 21 units/L (5-40) 01/19/22 18:38 ALT 25 units/L (7-56) 01/19/22 18:38 Alkaline Phosphatase 97 units/L (35-129) 01/19/22 18:38 Total Creatine Kinase 690 units/L (55-170) H 01/20/22 11:23 Total Protein 8.7 g/dL (6.3-8.2) H 01/19/22 18:38 Albumin 4.4 g/dL (3.9-5) 01/19/22 18:38 Albumin/Globulin Ratio 1.0 % 01/19/22 18:38 Amylase 299 units/L (27-131) H 01/21/22 04:51 Lipase 292 units/L (13-60) H 01/21/22 04:51 PTH Intact 443.7 pg/mL (15-65) H 01/20/22 11:38 Urine Color Yellow (Yellow) 01/19/22 Unknown Urine Turbidity Slightly cloudy (Clear) 01/19/22 Unknown Urine pH 6.0 (5.0-7.0) 01/19/22 Unknown Ur Specific [place] 1.025 (1.003-1.030) 01/19/22 Unknown Urine Protein 100 mg/dl mg/dL (Negative) 01/19/22 Unknown Urine Glucose (UA) Negative mg/dL (Negative) 01/19/22 Unknown Urine Ketones Negative mg/dL (Negative) 01/19/22 Unknown Urine Blood Trace (Negative) 01/19/22 Unknown Urine Nitrite Negative (Negative) 01/19/22 Unknown Ur Reducing Substances Not Reportable 01/19/22 Unknown Urine Bilirubin Negative (Negative) 01/19/22 Unknown Urine Ictotest Not Reportable 01/19/22 Unknown Urine Urobilinogen 2.0 mg/dL (<2.0) 01/19/22 Unknown Ur Leukocyte Esterase Negative (Negative) 01/19/22 Unknown Urine WBC (Auto) 4.0 /HPF (0.0-6.0) 01/19/22 Unknown Urine RBC (Auto) 2.0 /HPF (0.0-6.0) 01/19/22 Unknown U Epithel Cells (Auto) 2.0 /HPF (0-13.0) 01/19/22 Unknown Urine Bacteria (Auto) 1+ /HPF (Negative) 01/19/22 Unknown Urine Eosinophils None seen (None Seen) 01/20/22 15:30 Urine Creatinine 64.2 mg/dL (0.1-20.0) H 01/20/22 15:30 Protein/Creatinin Ratio 3.60 01/20/22 15:30 Urine Sodium 83 mmol/L 01/20/22 15:30 Urine Total Protein 231 mg/dL (5-11.8) H 01/20/22 15:30 Coronavirus (PCR) Negative (Negative) 01/20/22 05:28 Kiran/IV: Voiding Method Urinal Active Medications - Current Medications Current Medications: Generic Name Dose Route Start Last Admin Trade Name Freq PRN Reason Stop Dose Admin Acetaminophen 650 mg 01/19/22 22:50 Acetaminophen 325 Mg Tab PO Q4H PRN Pain MILD(1-3)/Fever >100.5/OSCAR Amlodipine Besylate 10 mg 01/20/22 10:00 01/20/22 09:07 Amlodipine 10 Mg Tab PO 10 mg QDAY JENNY Administration Carvedilol 25 mg 01/20/22 22:00 01/20/22 21:19 Carvedilol 25 Mg Tab PO 25 mg BID JENNY Administration Dextrose 50 ml 01/20/22 13:29 Dextrose 50% In Water (25gm) 50 Ml Syringe IV Q30MIN PRN Hypoglycemia Protocol Famotidine 20 mg 01/20/22 10:00 01/20/22 09:07 Famotidine 20 Mg/2 Ml Inj IV 20 mg DAILY JENNY Administration Hydralazine HCl 20 mg 01/20/22 12:00 01/21/22 05:28 Hydralazine 20 Mg/1 Ml Inj IV 20 mg Q6HR JENNY Administration Hydralazine HCl 10 mg 01/20/22 11:15 Hydralazine 20 Mg/1 Ml Inj IV Q4H PRN Hypertension Sodium Bicarbonate 150 meq/ 1,150 mls @ 125 mls/hr 01/19/22 23:00 01/20/22 23:00 Dextrose IV 125 mls/hr DIRECT JENNY Administration Nicardipine HCl 50 mg/ Sodium 250 mls @ 25 mls/hr 01/20/22 08:00 01/20/22 12:33 Chloride IV 0 mg/hr TITR JENNY 0 mls/hr Titration Protocol 5 MG/HR Insulin Human Regular 0 units 01/20/22 16:30 01/21/22 07:16 Insulin Regular, Human 100 Units/1 Ml SUB-Q Not Given AC JENNY Protocol Morphine Sulfate 2 mg 01/19/22 22:50 Morphine 2 Mg/1 Ml Inj IV Q4H PRN Pain, Moderate (4-6) Morphine Sulfate 4 mg 01/19/22 22:50 Morphine 4 Mg/1 Ml Inj IV Q4H PRN Pain , Severe (7-10) Ondansetron HCl 4 mg 01/19/22 22:50 01/20/22 05:25 Ondansetron 4 Mg/2 Ml Inj IV 4 mg Q8H PRN Administration Nausea And Vomiting Sodium Bicarbonate 1,300 mg 01/20/22 09:00 01/20/22 21:19 Sodium Bicarbonate 650 Mg Tab PO 1,300 mg TID JENNY Administration Sodium Chloride 10 ml 01/20/22 10:00 01/20/22 21:20 Sodium Chloride 0.9% 10 Ml Flush Syringe IV 10 ml BID JENNY Administration Sodium Chloride 10 ml 01/19/22 22:50 Sodium Chloride 0.9% 10 Ml Flush Syringe IV PRN PRN LINE FLUSH
[2022-01-20 16:29] LABS: Creatinine,Urine 64.2 mg/dL (0.1-20.0); Protein/Creatinine Ratio,Urine 3.6
[2022-01-20] MEDS: INSULIN REGULAR, HUMAN 100 UNITS/1 ML SUB-Q SCH (16:37)
[2022-01-20 19:38] LABS: Calcium 6.3 mg/dL (8.4-10.2)
[2022-01-20] MEDS: carvediloL 25 MG TAB PO SCH (21:19)
[2022-01-21] MEDS: hydrALAZINE 20 MG/1 ML INJ IV SCH ×4 (00:07→17:37)
[2022-01-21] MEDS ORDERED: ZOLPIDEM 5 MG TAB PO ONE ×2 (02:01→22:00)
[2022-01-21 05:30] LABS: Calcium 6.1 mg/dL (8.4-10.2)
[2022-01-21] MEDS: INSULIN REGULAR, HUMAN 100 UNITS/1 ML SUB-Q SCH ×2 (07:16→11:30)
[2022-01-21] MEDS: SODIUM BICARBONATE 150 MEQ in DEXTROSE 5% IN WATER 1,000 ML IV SCH (07:38)
[2022-01-21] MEDS: amLODIPine 10 MG TAB PO SCH (09:04)
[2022-01-21] MEDS: SODIUM BICARBONATE 650 MG TAB PO SCH ×3 (09:04→20:59)
[2022-01-21] MEDS: FAMOTIDINE 20 MG/2 ML INJ IV SCH (09:04)
[2022-01-21] MEDS: carvediloL 25 MG TAB PO SCH ×2 (09:04→21:00)
[2022-01-21] MEDS: ONDANSETRON 4 MG/2 ML INJ IV PRN ×2 (09:12→21:03)
--- NOTE | 2022-01-21 10:21 | Progress Note ---
<SAKSHI PONCE - Last Filed: 01/21/22 15:49> Assessment and Plan Assessment and plan: This is a 36-year-old male with known past medical history of HIV/AIDS, HTN, and possible medical noncompliance admitted for hypertensive emergency and acute on chronic renal failure Hospital course to date: 01/20: Patient has been weaned off nicardipine since afternoon and restarted home amlodipine and Coreg, increase in coreg and IV hydral ordered. Transfer to [facility]. COVID-19 PCR pending. Patient currently refusing hemodialysis when informed that he may need hemodialysis but the decision will be made by the engagement director. 01/21: Off cardene gtt since yesterday. Patient is hypertensive this am despite PRN IV Hydralazine. X1 dose IV labetall administered, SBP down in the 160s. Minoxidil added BID for better BP control. Renal function is unchanged, plan for iHD tomorrow per Nephro. Vascular Surgery consulted for permacath placement. NPO after midnight tonight for permacath placement. Plan of care discussed with patient at the bedside, all questions and concerns addressed at this time. D/W CCM patient is stable for transfer to the floor. Assessment and Plan #Hypertensive Emergency #Possible medical Noncompliance - Presented with SBP in the 200s, s/p Cardene gtt - Hypertensive this am, SBP back up in the 200s despite schedule meds and PRN Hydralazine - X1 dose of IV labetalol given, SBP improved in the 160s - Continue current antihypertensive regimen (Coreg and Amlodipine) - Minoxidil added for better BP control - Continue blood pressure monitor per protocol - PRN Hydralazine to maintain SBP less than 160 #Acute on Chronic Renal Failure #Hyponatremia - Presented with Scr. of 32.6 and Hyperkalemia - baseline renal function is unknown - Per patient, he was informed that he had renal insufficiency by PCP and needed to follow-up with engagement director but has been unable to due to insurance issues - s/p IV Bumex and Bcarb gtt, Scr. improved to 28.1 this am - Patient remains nonoliguric - Nephrology on consult, appreciated recommendation - Plan for possible iHD tomorrow per Nephro - Vascular Surgery consulted for permacath placement. NPO AMN tonight - Strict intake and output - Avoid nephrotoxic medications; Renally dose medications - Monitor and replace electrolytes as needed #Nausea/Vomiting #Abdominal Pain-resolved #Poor PO intake - Presented with N/V, gen. weakness and fatige, elevated amylase and lipase - CT abd/pelvis shows no acute process in the abdomen or pelvis urinary tract calculi or hydronephrosis. Pancreatitis ruled out - Currently on Clear liquid diet, still c/o of nausea but no vomiting, denied any abdominal pain - Advanced diet as tolerated - PRN antiemetic for N/V - PRN Analgesia for pain control - Trend LFts, amylase, and lipase #H/o HIV/AIDS - Per patient viral load is undetectable - Patient admits noncompliance with meds. - ART on hold for now in the setting of worsen DAWSON. Reassess prior to discharge #Hyperglycemia - Continue BG check and SSI ACHS - Avoid Hypoglycemia #GI/DVT Prophylaxis - PPI- Pepcid - SCDs to bilateral lower extremities while in bed The high probability of a clinically significant, sudden or life threatening deterioration of the [renal, cardio] system(s) required my full and direct attention, intervention and personal management. The aggregate critical care time was [60] minutes. This time is in addition to time spent performing reported procedures but includes the following: [x] Data Review and interpretation [x] Patient assessment and monitoring of vital signs [x] Documentation [x] Medication orders and management Disposition Plan: transfer to the floor Total Time Spent with Patient (Minutes): 60 History Interval history: Patient seen and examined at the bedside. Fully AAO, on RA, complained of generalized weakness and fatigue. Denied any pain nor any discomfort at this time. Off cardene gtt since yesterday. Patient is Hypertensive this am, SBP in the 20Os, despite scheduled meds and PRN IV Hydralazine. X1 dose IV Labetolol given, SBP improved in the 160s. Hospitalist Physical - Constitutional Vitals: Temp Pulse Resp BP Pulse Ox 98 F 83 11 L 206/110 100 01/21/22 07:40 01/21/22 10:00 01/21/22 10:00 01/21/22 10:00 01/21/22 10:00 General appearance: Present: no acute distress, well-nourished - EENT Eyes: Present: PERRL ENT: hearing intact - Neck Neck: Present: normal ROM - Respiratory Respiratory effort: normal Respiratory: bilateral: diminished - Cardiovascular Rhythm: regular Heart Sounds: Present: S1 & S2 - Extremities Extremities: no ischemia, pulses intact, pulses symmetrical Peripheral Pulses: within normal limits - Abdominal General gastrointestinal: soft, non-distended, normal bowel sounds - Integumentary Integumentary: Present: warm, dry - Psychiatric Psychiatric: appropriate mood/affect, cooperative - Neurologic Neurologic: CNII-XII intact, moves all extremities - Allied Health Allied health notes reviewed: nursing, case management Results - Labs CBC & Chem 7: 01/20/22 11:23 01/21/22 04:51 Labs: Laboratory Last Values WBC 6.7 K/mm3 (4.5-11.0) 01/20/22 11:23 RBC 3.33 M/mm3 (3.65-5.03) L 01/20/22 11:23 Hgb 9.7 gm/dl (11.8-15.2) L 01/20/22 11:23 Hct 27.9 % (35.5-45.6) L D 01/20/22 11:23 MCV 84 fl (84-94) 01/20/22 11:23 MCH 29 pg (28-32) 01/20/22 11:23 MCHC 35 % (32-34) H 01/20/22 11:23 RDW 15.0 % (13.2-15.2) 01/20/22 11:23 Plt Count 153 K/mm3 (140-440) 01/20/22 11:23 Lymph % (Auto) 30.5 % (13.4-35.0) 01/20/22 11:23 Archer % (Auto) 6.1 % (0.0-7.3) 01/20/22 11:23 Eos % (Auto) 0.6 % (0.0-4.3) 01/20/22 11:23 Baso % (Auto) 0.5 % (0.0-1.8) 01/20/22 11:23 Lymph # (Auto) 2.0 K/mm3 (1.2-5.4) 01/20/22 11:23 Archer # (Auto) 0.4 K/mm3 (0.0-0.8) 01/20/22 11:23 Eos # (Auto) 0.0 K/mm3 (0.0-0.4) 01/20/22 11:23 Baso # (Auto) 0.0 K/mm3 (0.0-0.1) 01/20/22 11:23 Add Manual Diff Complete 01/19/22 18:38 Total Counted 100 01/19/22 18:38 Seg Neutrophils % 62.3 % (40.0-70.0) 01/20/22 11:23 Seg Neuts % (Manual) 63.0 % (40.0-70.0) 01/19/22 18:38 Band Neutrophils % 0 % 01/19/22 18:38 Lymphocytes % (Manual) 33.0 % (13.4-35.0) 01/19/22 18:38 Reactive Lymphs % (Man) 0 % 01/19/22 18:38 Monocytes % (Manual) 1.0 % (0.0-7.3) 01/19/22 18:38 Eosinophils % (Manual) 2.0 % (0.0-4.3) 01/19/22 18:38 Basophils % (Manual) 1.0 % (0.0-1.8) 01/19/22 18:38 Metamyelocytes % 0 % 01/19/22 18:38 Myelocytes % 0 % 01/19/22 18:38 Promyelocytes % 0 % 01/19/22 18:38 Blast Cells % 0 % 01/19/22 18:38 Nucleated RBC % Not Reportable 01/19/22 18:38 Seg Neutrophils # 4.2 K/mm3 (1.8-7.7) 01/20/22 11:23 Seg Neutrophils # Man 4.5 K/mm3 (1.8-7.7) 01/19/22 18:38 Band Neutrophils # 0.0 K/mm3 01/19/22 18:38 Lymphocytes # (Manual) 2.4 K/mm3 (1.2-5.4) 01/19/22 18:38 Abs React Lymphs (Man) 0.0 K/mm3 01/19/22 18:38 Monocytes # (Manual) 0.1 K/mm3 (0.0-0.8) 01/19/22 18:38 Eosinophils # (Manual) 0.1 K/mm3 (0.0-0.4) 01/19/22 18:38 Basophils # (Manual) 0.1 K/mm3 (0.0-0.1) 01/19/22 18:38 Metamyelocytes # 0.0 K/mm3 01/19/22 18:38 Myelocytes # 0.0 K/mm3 01/19/22 18:38 Promyelocytes # 0.0 K/mm3 01/19/22 18:38 Blast Cells # 0.0 K/mm3 01/19/22 18:38 WBC Morphology Not Reportable 01/19/22 18:38 Hypersegmented Neuts Not Reportable 01/19/22 18:38 Hyposegmented Neuts Not Reportable 01/19/22 18:38 Hypogranular Neuts Not Reportable 01/19/22 18:38 Smudge Cells Not Reportable 01/19/22 18:38 Toxic Granulation Not Reportable 01/19/22 18:38 Toxic Vacuolation Not Reportable 01/19/22 18:38 Dohle Bodies Not Reportable 01/19/22 18:38 Pelger-Huet Anomaly Not Reportable 01/19/22 18:38 Kallie Rods Not Reportable 01/19/22 18:38 Platelet Estimate Consistent w auto 01/19/22 18:38 Clumped Platelets Not Reportable 01/19/22 18:38 Plt Clumps, EDTA Not Reportable 01/19/22 18:38 Large Platelets Not Reportable 01/19/22 18:38 Giant Platelets Not Reportable 01/19/22 18:38 Platelet Satelliting Not Reportable 01/19/22 18:38 Plt Morphology Comment Not Reportable 01/19/22 18:38 RBC Morphology Not Reportable 01/19/22 18:38 Dimorphic RBCs Not Reportable 01/19/22 18:38 Polychromasia Not Reportable 01/19/22 18:38 Hypochromasia Not Reportable 01/19/22 18:38 Poikilocytosis Not Reportable 01/19/22 18:38 Anisocytosis 1+ 01/19/22 18:38 Microcytosis Not Reportable 01/19/22 18:38 Macrocytosis Not Reportable 01/19/22 18:38 Spherocytes Not Reportable 01/19/22 18:38 Pappenheimer Bodies Not Reportable 01/19/22 18:38 Sickle Cells Not Reportable 01/19/22 18:38 Target Cells Not Reportable 01/19/22 18:38 Tear Drop Cells Not Reportable 01/19/22 18:38 Ovalocytes Not Reportable 01/19/22 18:38 Helmet Cells Not Reportable 01/19/22 18:38 Santamaria-[place] Bodies Not Reportable 01/19/22 18:38 [place] Rings Not Reportable 01/19/22 18:38 [place] Cells Not Reportable 01/19/22 18:38 Bite Cells Not Reportable 01/19/22 18:38 Crenated Cell Not Reportable 01/19/22 18:38 Elliptocytes Not Reportable 01/19/22 18:38 Acanthocytes (Spur) Not Reportable 01/19/22 18:38 Rouleaux Not Reportable 01/19/22 18:38 Hemoglobin C Crystals Not Reportable 01/19/22 18:38 Schistocytes Not Reportable 01/19/22 18:38 Malaria parasites Not Reportable 01/19/22 18:38 Edgardo Bodies Not Reportable 01/19/22 18:38 Hem Pathologist Commnt No 01/19/22 18:38 Sodium 134 mmol/L (137-145) L 01/21/22 04:51 Potassium 3.6 mmol/L (3.6-5.0) 01/21/22 04:51 Chloride 83.4 mmol/L (98-107) L 01/21/22 04:51 Carbon Dioxide 22 mmol/L (22-30) 01/21/22 04:51 Anion Gap 32 mmol/L 01/21/22 04:51 BUN 198 mg/dL (9-20) H 01/21/22 04:51 Creatinine 28.1 mg/dL (0.8-1.3) H 01/21/22 04:51 Estimated GFR 2 ml/min 01/21/22 04:51 BUN/Creatinine Ratio 7 % 01/21/22 04:51 Glucose 130 mg/dL (75-100) H 01/21/22 04:51 POC Glucose 141 mg/dL (70-105) H 01/21/22 02:06 Calcium 6.1 mg/dL (8.4-10.2) L 01/21/22 04:51 Phosphorus 12.40 mg/dL (2.5-4.5) H 01/21/22 04:51 Magnesium 2.10 mg/dL (1.7-2.3) 01/21/22 04:51 Total Bilirubin 0.40 mg/dL (0.1-1.2) 01/19/22 18:38 AST 21 units/L (5-40) 01/19/22 18:38 ALT 25 units/L (7-56) 01/19/22 18:38 Alkaline Phosphatase 97 units/L (35-129) 01/19/22 18:38 Total Creatine Kinase 690 units/L (55-170) H 01/20/22 11:23 Total Protein 8.7 g/dL (6.3-8.2) H 01/19/22 18:38 Albumin 4.4 g/dL (3.9-5) 01/19/22 18:38 Albumin/Globulin Ratio 1.0 % 01/19/22 18:38 Amylase 299 units/L (27-131) H 01/21/22 04:51 Lipase 292 units/L (13-60) H 01/21/22 04:51 PTH Intact 443.7 pg/mL (15-65) H 01/20/22 11:38 Urine Color Yellow (Yellow) 01/19/22 Unknown Urine Turbidity Slightly cloudy (Clear) 01/19/22 Unknown Urine pH 6.0 (5.0-7.0) 01/19/22 Unknown Ur Specific [place] 1.025 (1.003-1.030) 01/19/22 Unknown Urine Protein 100 mg/dl mg/dL (Negative) 01/19/22 Unknown Urine Glucose (UA) Negative mg/dL (Negative) 01/19/22 Unknown Urine Ketones Negative mg/dL (Negative) 01/19/22 Unknown Urine Blood Trace (Negative) 01/19/22 Unknown Urine Nitrite Negative (Negative) 01/19/22 Unknown Ur Reducing Substances Not Reportable 01/19/22 Unknown Urine Bilirubin Negative (Negative) 01/19/22 Unknown Urine Ictotest Not Reportable 01/19/22 Unknown Urine Urobilinogen 2.0 mg/dL (<2.0) 01/19/22 Unknown Ur Leukocyte Esterase Negative (Negative) 01/19/22 Unknown Urine WBC (Auto) 4.0 /HPF (0.0-6.0) 01/19/22 Unknown Urine RBC (Auto) 2.0 /HPF (0.0-6.0) 01/19/22 Unknown U Epithel Cells (Auto) 2.0 /HPF (0-13.0) 01/19/22 Unknown Urine Bacteria (Auto) 1+ /HPF (Negative) 01/19/22 Unknown Urine Eosinophils None seen (None Seen) 01/20/22 15:30 Urine Creatinine 64.2 mg/dL (0.1-20.0) H 01/20/22 15:30 Protein/Creatinin Ratio 3.60 01/20/22 15:30 Urine Sodium 83 mmol/L 01/20/22 15:30 Urine Total Protein 231 mg/dL (5-11.8) H 01/20/22 15:30 Coronavirus (PCR) Negative (Negative) 01/20/22 05:28 Kiran/IV: Voiding Method Urinal Active Medications - Current Medications Current Medications: Generic Name Dose Route Start Last Admin Trade Name Freq PRN Reason Stop Dose Admin Acetaminophen 650 mg 01/19/22 22:50 Acetaminophen 325 Mg Tab PO Q4H PRN Pain MILD(1-3)/Fever >100.5/OSCAR Amlodipine Besylate 10 mg 01/20/22 10:00 01/21/22 09:04 Amlodipine 10 Mg Tab PO 10 mg QDAY JENNY Administration Carvedilol 25 mg 01/20/22 22:00 01/21/22 09:04 Carvedilol 25 Mg Tab PO 25 mg BID JENNY Administration Dextrose 50 ml 01/20/22 13:29 Dextrose 50% In Water (25gm) 50 Ml Syringe IV Q30MIN PRN Hypoglycemia Protocol Famotidine 20 mg 01/20/22 10:00 01/21/22 09:04 Famotidine 20 Mg/2 Ml Inj IV 20 mg DAILY JENNY Administration Hydralazine HCl 20 mg 01/20/22 12:00 01/21/22 05:28 Hydralazine 20 Mg/1 Ml Inj IV 20 mg Q6HR JENNY Administration Hydralazine HCl 10 mg 01/20/22 11:15 01/21/22 09:11 Hydralazine 20 Mg/1 Ml Inj IV 10 mg Q4H PRN Administration Hypertension Sodium Bicarbonate 150 meq/ 1,150 mls @ 125 mls/hr 01/19/22 23:00 01/21/22 07:38 Dextrose IV 125 mls/hr DIRECT JENNY Administration Nicardipine HCl 50 mg/ Sodium 250 mls @ 25 mls/hr 01/20/22 08:00 01/20/22 12:33 Chloride IV 0 mg/hr TITR JENNY 0 mls/hr Titration Protocol 5 MG/HR Insulin Human Regular 0 units 01/20/22 16:30 01/21/22 07:16 Insulin Regular, Human 100 Units/1 Ml SUB-Q Not Given AC JENNY Protocol Labetalol HCl 10 mg 01/21/22 10:30 Labetalol 20 Mg/4 Ml Inj IV 01/21/22 11:30 ONCE@1030 JENNY Minoxidil 5 mg 01/21/22 11:00 Minoxidil 2.5 Mg Tab PO BID JENNY Morphine Sulfate 2 mg 01/19/22 22:50 Morphine 2 Mg/1 Ml Inj IV Q4H PRN Pain, Moderate (4-6) Ondansetron HCl 4 mg 01/19/22 22:50 01/21/22 09:12 Ondansetron 4 Mg/2 Ml Inj IV 4 mg Q8H PRN Administration Nausea And Vomiting Sodium Bicarbonate 1,300 mg 01/20/22 09:00 01/21/22 09:04 Sodium Bicarbonate 650 Mg Tab PO 1,300 mg TID JENNY Administration Sodium Chloride 10 ml 01/20/22 10:00 01/21/22 09:10 Sodium Chloride 0.9% 10 Ml Flush Syringe IV 10 ml BID JENNY Administration Sodium Chloride 10 ml 01/19/22 22:50 Sodium Chloride 0.9% 10 Ml Flush Syringe IV PRN PRN LINE FLUSH <SONA MAYEN - Last Filed: 01/22/22 07:22> Assessment and Plan Assessment and plan: I saw and evaluated the patient. I agree with the findings and the plan of care as documented in the Nurse Practitioner's~note, with the following corrections and additions. Hospitalist Physical - Constitutional Vitals: Temp Pulse Resp BP Pulse Ox 98.0 F 76 18 143/79 100 01/22/22 05:09 01/22/22 05:09 01/21/22 20:36 01/22/22 05:11 01/22/22 05:09 Results - Labs CBC & Chem 7: 01/22/22 04:49 01/22/22 04:49 Labs: Laboratory Last Values WBC 9.0 K/mm3 (4.5-11.0) 01/22/22 04:49 RBC 2.88 M/mm3 (3.65-5.03) L 01/22/22 04:49 Hgb 8.5 gm/dl (11.8-15.2) L 01/22/22 04:49 Hct 23.9 % (35.5-45.6) L 01/22/22 04:49 MCV 83 fl (84-94) L 01/22/22 04:49 MCH 29 pg (28-32) 01/22/22 04:49 MCHC 35 % (32-34) H 01/22/22 04:49 RDW 14.4 % (13.2-15.2) 01/22/22 04:49 Plt Count 128 K/mm3 (140-440) L 01/22/22 04:49 Lymph % (Auto) 30.5 % (13.4-35.0) 01/20/22 11:23 Archer % (Auto) 6.1 % (0.0-7.3) 01/20/22 11:23 Eos % (Auto) 0.6 % (0.0-4.3) 01/20/22 11:23 Baso % (Auto) 0.5 % (0.0-1.8) 01/20/22 11:23 Lymph # (Auto) 2.0 K/mm3 (1.2-5.4) 01/20/22 11:23 Archer # (Auto) 0.4 K/mm3 (0.0-0.8) 01/20/22 11:23 Eos # (Auto) 0.0 K/mm3 (0.0-0.4) 01/20/22 11:23 Baso # (Auto) 0.0 K/mm3 (0.0-0.1) 01/20/22 11:23 Add Manual Diff Complete 01/19/22 18:38 Total Counted 100 01/19/22 18:38 Seg Neutrophils % 62.3 % (40.0-70.0) 01/20/22 11:23 Seg Neuts % (Manual) 63.0 % (40.0-70.0) 01/19/22 18:38 Band Neutrophils % 0 % 01/19/22 18:38 Lymphocytes % (Manual) 33.0 % (13.4-35.0) 01/19/22 18:38 Reactive Lymphs % (Man) 0 % 01/19/22 18:38 Monocytes % (Manual) 1.0 % (0.0-7.3) 01/19/22 18:38 Eosinophils % (Manual) 2.0 % (0.0-4.3) 01/19/22 18:38 Basophils % (Manual) 1.0 % (0.0-1.8) 01/19/22 18:38 Metamyelocytes % 0 % 01/19/22 18:38 Myelocytes % 0 % 01/19/22 18:38 Promyelocytes % 0 % 01/19/22 18:38 Blast Cells % 0 % 01/19/22 18:38 Nucleated RBC % Not Reportable 01/19/22 18:38 Seg Neutrophils # 4.2 K/mm3 (1.8-7.7) 01/20/22 11:23 Seg Neutrophils # Man 4.5 K/mm3 (1.8-7.7) 01/19/22 18:38 Band Neutrophils # 0.0 K/mm3 01/19/22 18:38 Lymphocytes # (Manual) 2.4 K/mm3 (1.2-5.4) 01/19/22 18:38 Abs React Lymphs (Man) 0.0 K/mm3 01/19/22 18:38 Monocytes # (Manual) 0.1 K/mm3 (0.0-0.8) 01/19/22 18:38 Eosinophils # (Manual) 0.1 K/mm3 (0.0-0.4) 01/19/22 18:38 Basophils # (Manual) 0.1 K/mm3 (0.0-0.1) 01/19/22 18:38 Metamyelocytes # 0.0 K/mm3 01/19/22 18:38 Myelocytes # 0.0 K/mm3 01/19/22 18:38 Promyelocytes # 0.0 K/mm3 01/19/22 18:38 Blast Cells # 0.0 K/mm3 01/19/22 18:38 WBC Morphology Not Reportable 01/19/22 18:38 Hypersegmented Neuts Not Reportable 01/19/22 18:38 Hyposegmented Neuts Not Reportable 01/19/22 18:38 Hypogranular Neuts Not Reportable 01/19/22 18:38 Smudge Cells Not Reportable 01/19/22 18:38 Toxic Granulation Not Reportable 01/19/22 18:38 Toxic Vacuolation Not Reportable 01/19/22 18:38 Dohle Bodies Not Reportable 01/19/22 18:38 Pelger-Huet Anomaly Not Reportable 01/19/22 18:38 Kallie Rods Not Reportable 01/19/22 18:38 Platelet Estimate Consistent w auto 01/19/22 18:38 Clumped Platelets Not Reportable 01/19/22 18:38 Plt Clumps, EDTA Not Reportable 01/19/22 18:38 Large Platelets Not Reportable 01/19/22 18:38 Giant Platelets Not Reportable 01/19/22 18:38 Platelet Satelliting Not Reportable 01/19/22 18:38 Plt Morphology Comment Not Reportable 01/19/22 18:38 RBC Morphology Not Reportable 01/19/22 18:38 Dimorphic RBCs Not Reportable 01/19/22 18:38 Polychromasia Not Reportable 01/19/22 18:38 Hypochromasia Not Reportable 01/19/22 18:38 Poikilocytosis Not Reportable 01/19/22 18:38 Anisocytosis 1+ 01/19/22 18:38 Microcytosis Not Reportable 01/19/22 18:38 Macrocytosis Not Reportable 01/19/22 18:38 Spherocytes Not Reportable 01/19/22 18:38 Pappenheimer Bodies Not Reportable 01/19/22 18:38 Sickle Cells Not Reportable 01/19/22 18:38 Target Cells Not Reportable 01/19/22 18:38 Tear Drop Cells Not Reportable 01/19/22 18:38 Ovalocytes Not Reportable 01/19/22 18:38 Helmet Cells Not Reportable 01/19/22 18:38 Santamaria-[place] Bodies Not Reportable 01/19/22 18:38 [place] Rings Not Reportable 01/19/22 18:38 [place] Cells Not Reportable 01/19/22 18:38 Bite Cells Not Reportable 01/19/22 18:38 Crenated Cell Not Reportable 01/19/22 18:38 Elliptocytes Not Reportable 01/19/22 18:38 Acanthocytes (Spur) Not Reportable 01/19/22 18:38 Rouleaux Not Reportable 01/19/22 18:38 Hemoglobin C Crystals Not Reportable 01/19/22 18:38 Schistocytes Not Reportable 01/19/22 18:38 Malaria parasites Not Reportable 01/19/22 18:38 Edgardo Bodies Not Reportable 01/19/22 18:38 Hem Pathologist Commnt No 01/19/22 18:38 Sodium 134 mmol/L (137-145) L 01/22/22 04:49 Potassium 3.9 mmol/L (3.6-5.0) 01/22/22 04:49 Chloride 79.0 mmol/L (98-107) L 01/22/22 04:49 Carbon Dioxide 27 mmol/L (22-30) 01/22/22 04:49 Anion Gap 32 mmol/L 01/22/22 04:49 BUN 193 mg/dL (9-20) H 01/22/22 04:49 Creatinine 27.2 mg/dL (0.8-1.3) H 01/22/22 04:49 Estimated GFR 2 ml/min 01/22/22 04:49 BUN/Creatinine Ratio 7 % 01/22/22 04:49 Glucose 102 mg/dL (75-100) H 01/22/22 04:49 POC Glucose 142 mg/dL (70-105) H 01/21/22 11:41 Calcium 6.0 mg/dL (8.4-10.2) L 01/22/22 04:49 Phosphorus 13.20 mg/dL (2.5-4.5) H 01/22/22 04:49 Magnesium 2.10 mg/dL (1.7-2.3) 01/22/22 04:49 Total Bilirubin 0.40 mg/dL (0.1-1.2) 01/22/22 04:49 AST 21 units/L (5-40) 01/22/22 04:49 ALT 23 units/L (7-56) 01/22/22 04:49 Alkaline Phosphatase 88 units/L (35-129) 01/22/22 04:49 Total Creatine Kinase 690 units/L (55-170) H 01/20/22 11:23 Total Protein 6.5 g/dL (6.3-8.2) D 01/22/22 04:49 Albumin 3.7 g/dL (3.9-5) L 01/22/22 04:49 Albumin/Globulin Ratio 1.3 % 01/22/22 04:49 Amylase 223 units/L (27-131) H 01/22/22 04:49 Lipase 164 units/L (13-60) H 01/22/22 04:49 PTH Intact 443.7 pg/mL (15-65) H 01/20/22 11:38 Urine Color Yellow (Yellow) 01/19/22 Unknown Urine Turbidity Slightly cloudy (Clear) 01/19/22 Unknown Urine pH 6.0 (5.0-7.0) 01/19/22 Unknown Ur Specific [place] 1.025 (1.003-1.030) 01/19/22 Unknown Urine Protein 100 mg/dl mg/dL (Negative) 01/19/22 Unknown Urine Glucose (UA) Negative mg/dL (Negative) 01/19/22 Unknown Urine Ketones Negative mg/dL (Negative) 01/19/22 Unknown Urine Blood Trace (Negative) 01/19/22 Unknown Urine Nitrite Negative (Negative) 01/19/22 Unknown Ur Reducing Substances Not Reportable 01/19/22 Unknown Urine Bilirubin Negative (Negative) 01/19/22 Unknown Urine Ictotest Not Reportable 01/19/22 Unknown Urine Urobilinogen 2.0 mg/dL (<2.0) 01/19/22 Unknown Ur Leukocyte Esterase Negative (Negative) 01/19/22 Unknown Urine WBC (Auto) 4.0 /HPF (0.0-6.0) 01/19/22 Unknown Urine RBC (Auto) 2.0 /HPF (0.0-6.0) 01/19/22 Unknown U Epithel Cells (Auto) 2.0 /HPF (0-13.0) 01/19/22 Unknown Urine Bacteria (Auto) 1+ /HPF (Negative) 01/19/22 Unknown Urine Eosinophils None seen (None Seen) 01/20/22 15:30 Urine Creatinine 64.2 mg/dL (0.1-20.0) H 01/20/22 15:30 Protein/Creatinin Ratio 3.60 01/20/22 15:30 Urine Sodium 83 mmol/L 01/20/22 15:30 Urine Total Protein 231 mg/dL (5-11.8) H 01/20/22 15:30 Coronavirus (PCR) Negative (Negative) 01/20/22 05:28 Hepatitis A IgM Ab Non-reactive (NonReactive) 01/21/22 04:51 Hep Bs Antigen Non-reactive (Negative) 01/21/22 04:51 Hep B Core IgM Ab Non-reactive (NonReactive) 01/21/22 04:51 Hepatitis C Antibody Non-reactive (NonReactive) 01/21/22 04:51 Kiran/IV: Voiding Method Urinal Active Medications - Current Medications Current Medications: Generic Name Dose Route Start Last Admin Trade Name Freq PRN Reason Stop Dose Admin Acetaminophen 650 mg 01/19/22 22:50 01/22/22 05:08 Acetaminophen 325 Mg Tab PO 650 mg Q4H PRN Administration Pain MILD(1-3)/Fever >100.5/OSCAR Amlodipine Besylate 10 mg 01/20/22 10:00 01/21/22 09:04 Amlodipine 10 Mg Tab PO 10 mg QDAY JENNY Administration Calcium Acetate 667 mg 01/21/22 17:00 01/21/22 17:39 Calcium Acetate 667 Mg Cap PO 667 mg TIDWM JENNY Administration Carvedilol 25 mg 01/20/22 22:00 01/21/22 21:00 Carvedilol 25 Mg Tab PO 25 mg BID JENNY Administration Dextrose 50 ml 01/20/22 13:29 Dextrose 50% In Water (25gm) 50 Ml Syringe IV Q30MIN PRN Hypoglycemia Protocol Famotidine 20 mg 01/22/22 10:00 Famotidine 20 Mg Tab PO QDAY JENNY Hydralazine HCl 20 mg 01/20/22 12:00 01/22/22 05:11 Hydralazine 20 Mg/1 Ml Inj IV 20 mg Q6HR JENNY Administration Melatonin 5 mg 01/21/22 22:00 01/21/22 21:00 Melatonin 5 Mg Tab PO Not Given QHS JENNY Minoxidil 5 mg 01/21/22 11:00 01/21/22 21:00 Minoxidil 2.5 Mg Tab PO 5 mg BID JENNY Administration Morphine Sulfate 2 mg 01/19/22 22:50 01/22/22 06:39 Morphine 2 Mg/1 Ml Inj IV 2 mg Q4H PRN Administration Pain, Moderate (4-6) Ondansetron HCl 4 mg 01/19/22 22:50 01/21/22 21:03 Ondansetron 4 Mg/2 Ml Inj IV 4 mg Q8H PRN Administration Nausea And Vomiting Sodium Bicarbonate 1,300 mg 01/20/22 09:00 01/21/22 20:59 Sodium Bicarbonate 650 Mg Tab PO 1,300 mg TID JENNY Administration Sodium Chloride 10 ml 01/20/22 10:00 01/21/22 21:01 Sodium Chloride 0.9% 10 Ml Flush Syringe IV 10 ml BID JENNY Administration Sodium Chloride 10 ml 01/19/22 22:50 01/22/22 06:39 Sodium Chloride 0.9% 10 Ml Flush Syringe IV 10 ml PRN PRN Administration LINE FLUSH
--- NOTE | 2022-01-21 12:13 | Progress Note ---
Assessment and Plan Assessment: Acute Kidney injury on top of CKD vs Progressive CKD, Could have HIVAN: S/P Hyperkalemia: Metabolic acidosis: HIV: Hypertension: Nausea and vomitinHPT from CKD: Hyperphosphatemia Plan: -Renal labs reviewed. Serum creatinine 28.1 today, yesterday's was 24.8. BUN elevated at 198 -States he was referred to [facility] outpatient[facility] and was suppose to complete a scan for kidneys but was not able to do both as yet. Baseline serum creatinine unknown. -Given no significant improvement in renal function, discussed hemodialysis initiation recommendation with patient, explained risks and benefits on dialysis and procedures involved to include perm-catheter placement. Patient consented for perm-catheter placement and hemodialysis initiation. -Consulted IR for perm-catheter placement tomorrow, make NPO after midnight -Hemodialysis tomorrow after perm-catheter is placed -CT of Abdomen and Pelvis-No hydronephrosis -Urine studies reviewed, has proteinuria. -Obtain SPEP, serum free light chains, BLANCA, ANCA, Anti-GBM, C3, C4, Hep panel -Hyperphosphatemia-Start Phoslo 667 mg po TID with meals -D/C bicarb drip once start on hemodialysis -Renally dose all medications -Avoid Nephrotoxic agents -PTH high signalling 2HPT from CKD -Strict I/O's daily -Obtain daily weights -Monitor renal function closely -Plan of care reviewed by Dr. Rodriguez Subjective Date of service: 01/21/22 Principal diagnosis: Severe renal failure Interval history: Patient seen lying in bed. Had extensive discussion regarding dialysis recommendation. Answered all questions. Patient consented. Objective - Vital Signs Vital signs: Vital Signs - 12hr 01/21/22 01/21/22 01/21/22 00:31 01:00 01:31 Temperature Pulse Rate 76 79 74 Pulse Rate [ From Monitor] Respiratory 16 14 18 Rate Blood Pressure 166/113 144/80 144/80 O2 Sat by Pulse 100 99 100 Oximetry 01/21/22 01/21/22 01/21/22 02:00 02:31 03:00 Temperature Pulse Rate 76 75 77 Pulse Rate [ From Monitor] Respiratory 12 11 L 14 Rate Blood Pressure 151/91 151/91 171/84 O2 Sat by Pulse 100 100 100 Oximetry 01/21/22 01/21/22 01/21/22 03:31 04:00 04:31 Temperature 98.4 F Pulse Rate 74 74 75 Pulse Rate [ 73 From Monitor] Respiratory 13 13 13 Rate Blood Pressure 171/84 163/83 163/83 O2 Sat by Pulse 100 99 99 Oximetry 01/21/22 01/21/22 01/21/22 05:00 05:28 05:31 Temperature Pulse Rate 73 73 82 Pulse Rate [ From Monitor] Respiratory 12 13 Rate Blood Pressure 165/91 165/91 165/91 O2 Sat by Pulse 99 99 Oximetry 01/21/22 01/21/22 01/21/22 06:00 06:31 07:00 Temperature Pulse Rate 84 86 78 Pulse Rate [ From Monitor] Respiratory 13 15 13 Rate Blood Pressure 164/89 164/89 153/80 O2 Sat by Pulse 99 Oximetry 01/21/22 01/21/22 01/21/22 07:31 07:40 08:00 Temperature 98 F Pulse Rate 85 78 Pulse Rate [ 76 From Monitor] Respiratory 15 11 L Rate Blood Pressure 153/80 163/87 O2 Sat by Pulse 100 Oximetry 01/21/22 01/21/22 01/21/22 08:31 09:01 09:31 Temperature Pulse Rate 86 90 85 Pulse Rate [ From Monitor] Respiratory 15 17 20 Rate Blood Pressure 163/87 193/115 193/115 O2 Sat by Pulse 100 100 99 Oximetry 01/21/22 01/21/22 01/21/22 10:00 10:31 11:00 Temperature Pulse Rate 83 79 73 Pulse Rate [ From Monitor] Respiratory 11 L 15 9 L Rate Blood Pressure 206/110 206/110 157/93 O2 Sat by Pulse 100 100 100 Oximetry 01/21/22 01/21/22 01/21/22 11:31 11:44 12:00 Temperature 97.6 F Pulse Rate 69 Pulse Rate [ From Monitor] Respiratory 16 Rate Blood Pressure 157/93 162/102 O2 Sat by Pulse 100 100 Oximetry - General Appearance General appearance: well-developed, appears stated age EENT: ATNC, PERRL, hearing intact, vision intact Neck: no JVD, supple Respiratory: Present: Decreased Breath Sounds Cardiology: S1S2 Gastrointestinal: normoactive bowel sounds Integumentary: warm and dry Neurologic: alert and oriented x3 Musculoskeletal: other (No edema) - Lab 01/20/22 11:23 01/21/22 04:51 Most recent lab results Calcium 6.1 mg/dL (8.4-10.2) L 01/21/22 04:51 Phosphorus 12.40 mg/dL (2.5-4.5) H 01/21/22 04:51 Magnesium 2.10 mg/dL (1.7-2.3) 01/21/22 04:51 Urine Creatinine 64.2 mg/dL (0.1-20.0) H 01/20/22 15:30 Urine Sodium 83 mmol/L 01/20/22 15:30 Urine Total Protein 231 mg/dL (5-11.8) H 01/20/22 15:30 Medications & Allergies - Medications Allergies/Adverse Reactions: Allergies No Known Allergies Allergy (Unverified 01/19/22 15:40) Active Medications: Generic Name Dose Route Start Last Admin Trade Name Freq PRN Reason Stop Dose Admin Acetaminophen 650 mg 01/19/22 22:50 Acetaminophen 325 Mg Tab PO Q4H PRN Pain MILD(1-3)/Fever >100.5/OSCAR Amlodipine Besylate 10 mg 01/20/22 10:00 01/21/22 09:04 Amlodipine 10 Mg Tab PO 10 mg QDAY JENNY Administration Carvedilol 25 mg 01/20/22 22:00 01/21/22 09:04 Carvedilol 25 Mg Tab PO 25 mg BID JENNY Administration Dextrose 50 ml 01/20/22 13:29 Dextrose 50% In Water (25gm) 50 Ml Syringe IV Q30MIN PRN Hypoglycemia Protocol Famotidine 20 mg 01/20/22 10:00 01/21/22 09:04 Famotidine 20 Mg/2 Ml Inj IV 20 mg DAILY JENNY Administration Hydralazine HCl 20 mg 01/20/22 12:00 01/21/22 05:28 Hydralazine 20 Mg/1 Ml Inj IV 20 mg Q6HR JENNY Administration Hydralazine HCl 10 mg 01/20/22 11:15 01/21/22 09:11 Hydralazine 20 Mg/1 Ml Inj IV 10 mg Q4H PRN Administration Hypertension Sodium Bicarbonate 150 meq/ 1,150 mls @ 125 mls/hr 01/19/22 23:00 01/21/22 07:38 Dextrose IV 125 mls/hr DIRECT JENNY Administration Nicardipine HCl 50 mg/ Sodium 250 mls @ 25 mls/hr 01/20/22 08:00 01/20/22 12:33 Chloride IV 0 mg/hr TITR JENNY 0 mls/hr Titration Protocol 5 MG/HR Insulin Human Regular 0 units 01/20/22 16:30 01/21/22 07:16 Insulin Regular, Human 100 Units/1 Ml SUB-Q Not Given AC [facility] Protocol Minoxidil 5 mg 01/21/22 11:00 Minoxidil 2.5 Mg Tab PO BID [facility] Morphine Sulfate 2 mg 01/19/22 22:50 Morphine 2 Mg/1 Ml Inj IV Q4H PRN Pain, Moderate (4-6) Ondansetron HCl 4 mg 01/19/22 22:50 01/21/22 09:12 Ondansetron 4 Mg/2 Ml Inj IV 4 mg Q8H PRN Administration Nausea And Vomiting Sodium Bicarbonate 1,300 mg 01/20/22 09:00 01/21/22 09:04 Sodium Bicarbonate 650 Mg Tab PO 1,300 mg TID JENNY Administration Sodium Chloride 10 ml 01/20/22 10:00 01/21/22 09:10 Sodium Chloride 0.9% 10 Ml Flush Syringe IV 10 ml BID JENNY Administration Sodium Chloride 10 ml 01/19/22 22:50 Sodium Chloride 0.9% 10 Ml Flush Syringe IV PRN PRN LINE FLUSH
--- NOTE | 2022-01-21 12:47 | Consultation ---
History of Present Illness - Reason for Consult Consult date: 01/21/22 Renal failure requiring dialysis - History of Present Illness Patient with a history of HIV, hypertension, noncompliance, acute on chronic renal insufficiency., Examination, the patient is resting comfortably in bed with no significant complaints. He is currently on a clear liquid diet and is just finished consuming liquids at time of examination. Past History Past Medical History: HIV/AIDS, hypertension Past Surgical History: No surgical history Social history: no significant social history Family history: hypertension Medications and Allergies Allergies Allergy/AdvReac Type Severity Reaction Status Date / Time No Known Allergies Allergy Unverified 01/19/22 15:40 Active Meds: Active Medications Acetaminophen (Acetaminophen 325 Mg Tab) 650 mg PO Q4H PRN PRN Reason: Pain MILD(1-3)/Fever >100.5/OSCAR Amlodipine Besylate (Amlodipine 10 Mg Tab) [address] [facility] Last Admin: 01/21/22 09:04 Dose: 10 mg Calcium Acetate (Calcium Acetate 667 Mg Cap) [address] [facility] Carvedilol (Carvedilol 25 Mg Tab) [address] [facility] Last Admin: 01/21/22 09:04 Dose: 25 mg Dextrose (Dextrose 50% In Water (25gm) 50 Ml Syringe) 50 ml IV Q30MIN PRN; Protocol PRN Reason: Hypoglycemia Famotidine (Famotidine 20 Mg/2 Ml Inj) [address] [facility] Last Admin: 01/21/22 09:04 Dose: 20 mg Hydralazine HCl (Hydralazine 20 Mg/1 Ml Inj) [address] [facility] Last Admin: 01/21/22 12:34 Dose: 20 mg Hydralazine HCl (Hydralazine 20 Mg/1 Ml Inj) 10 mg IV Q4H PRN PRN Reason: Hypertension Last Admin: 01/21/22 09:11 Dose: 10 mg Sodium Bicarbonate 150 meq/ (Dextrose) 1,150 mls @ 125 mls/hr IV DIRECT [facility] Last Admin: 01/21/22 07:38 Dose: 125 mls/hr Nicardipine HCl 50 mg/ Sodium (Chloride) 250 mls @ 25 mls/hr IV TITR [facility]; Protocol Last Titration: 01/20/22 12:33 Dose: 0 mg/hr, 0 mls/hr Insulin Human Regular (Insulin Regular, Human 100 Units/1 Ml) 0 units SUB-Q AC [facility]; Protocol Last Admin: 01/21/22 11:30 Dose: Not Given Minoxidil (Minoxidil 2.5 Mg Tab) [address] [facility] Morphine Sulfate (Morphine 2 Mg/1 Ml Inj) 2 mg IV Q4H PRN PRN Reason: Pain, Moderate (4-6) Ondansetron HCl (Ondansetron 4 Mg/2 Ml Inj) 4 mg IV Q8H PRN PRN Reason: Nausea And Vomiting Last Admin: 01/21/22 09:12 Dose: 4 mg Sodium Bicarbonate (Sodium Bicarbonate 650 Mg Tab) 1,[address] [facility] Last Admin: 01/21/22 09:04 Dose: 1,300 mg Sodium Chloride (Sodium Chloride 0.9% 10 Ml Flush Syringe) [address] [facility] Last Admin: 01/21/22 09:10 Dose: 10 ml Sodium Chloride (Sodium Chloride 0.9% 10 Ml Flush Syringe) 10 ml IV PRN PRN PRN Reason: LINE FLUSH Review of Systems All systems: negative Exam - Constitutional Vitals: Temp Pulse Resp BP Pulse Ox 97.6 F 76 12 162/102 100 01/21/22 11:44 01/21/22 12:00 01/21/22 12:00 01/21/22 12:00 01/21/22 12:00 General appearance: Present: no acute distress - EENT Eyes: Present: EOM intact ENT: hearing intact - Neck Neck: Present: supple - Respiratory Respiratory effort: normal - Abdominal General gastrointestinal: Present: deferred Male genitourinary: Present: deferred - Rectal Rectal Exam: deferred - Psychiatric Psychiatric: appropriate mood/affect, cooperative Results - Labs CBC & Chem 7: 01/20/22 11:23 01/21/22 04:51 Labs: Abnormal lab results 01/20/22 01/20/22 01/20/22 Range/Units 11:23 15:30 16:22 Sodium (137-145) mmol/L Chloride (98-107) mmol/L BUN (9-20) mg/dL Creatinine (0.8-1.3) mg/dL Glucose (75-100) mg/dL POC Glucose 136 H (70-105) mg/dL Calcium (8.4-10.2) mg/dL Phosphorus (2.5-4.5) mg/dL Total Creatine Kinase 690 H (55-170) units/L Amylase (27-131) units/L Lipase (13-60) units/L Urine Creatinine 64.2 H (0.1-20.0) mg/dL Urine Total Protein 231 H (5-11.8) mg/dL 01/20/22 01/21/22 01/21/22 Range/Units 18:57 02:06 04:51 Sodium 133 L 134 L (137-145) mmol/L Chloride 84.2 L 83.4 L (98-107) mmol/L BUN 199 H 198 H (9-20) mg/dL Creatinine 24.8 H 28.1 H (0.8-1.3) mg/dL Glucose 240 H 130 H (75-100) mg/dL POC Glucose 141 H (70-105) mg/dL Calcium 6.3 L 6.1 L (8.4-10.2) mg/dL Phosphorus 12.40 H (2.5-4.5) mg/dL Total Creatine Kinase (55-170) units/L Amylase 299 H (27-131) units/L Lipase 292 H (13-60) units/L Urine Creatinine (0.1-20.0) mg/dL Urine Total Protein (5-11.8) mg/dL 01/21/22 Range/Units 11:41 Sodium (137-145) mmol/L Chloride (98-107) mmol/L BUN (9-20) mg/dL Creatinine (0.8-1.3) mg/dL Glucose (75-100) mg/dL POC Glucose 142 H (70-105) mg/dL Calcium (8.4-10.2) mg/dL Phosphorus (2.5-4.5) mg/dL Total Creatine Kinase (55-170) units/L Amylase (27-131) units/L Lipase (13-60) units/L Urine Creatinine (0.1-20.0) mg/dL Urine Total Protein (5-11.8) mg/dL Assessment and Plan Discussed patient's care with Gris Cassidy regarding the timing of placement of PermCath. Patient is currently stable and his PermCath placement will be scheduled tomorrow. Patient will be made n.p.o. after midnight in anticipation of his procedure in the morning.
--- NOTE | 2022-01-21 14:14 | Ultrasound Report ---
ULTRASOUND RENAL INDICATION / CLINICAL INFORMATION: [place]. COMPARISON: None available. FINDINGS: RIGHT KIDNEY: Length = 8.8 cm. - Echogenicity: Increased - Cortical Thickness: Normal. - Hydronephrosis: None. - Cyst or mass: No significant abnormality. - Stones: None seen. LEFT KIDNEY: Length = 8.6 cm. - Echogenicity: Increased - Cortical Thickness: Normal. - Hydronephrosis: None. - Cyst or mass: No significant abnormality. - Stones: None seen. URINARY BLADDER: No significant abnormality. FREE FLUID: None. ADDITIONAL FINDINGS: None. IMPRESSION: 1. Bilateral renal atrophy. Increased echogenicity suggests medical renal disease Signer Name: Melquiades Morales MD Signed: 01/21/2022 2:09 PM Workstation Name: [email or web address]
[2022-01-21] MEDS: ACETAMINOPHEN 325 MG TAB PO PRN ×2 (14:21→18:25)
[2022-01-21] MEDS: MINOXIDIL 2.5 MG TAB PO SCH ×2 (15:30→21:00)
[2022-01-21 17:18] LABS: Hepatitis B Surface Antigen Non-Reactive (Negative); Hepatitis C Virus Antibody Non-Reactive (NonReactive)
[2022-01-21] MEDS: CALCIUM ACETATE 667 MG CAP PO SCH (17:39)
[2022-01-21] MEDS: MELATONIN 5 MG TAB PO SCH (21:00)
[2022-01-22] MEDS: hydrALAZINE 20 MG/1 ML INJ IV SCH ×4 (00:10→18:27)
[2022-01-22] MEDS: MORPHINE 2 MG/1 ML INJ IV PRN ×4 (02:27→22:04)
[2022-01-22] MEDS: ACETAMINOPHEN 325 MG TAB PO PRN (05:08)
[2022-01-22 05:52] LABS: Hematocrit 23.9 % (35.5-45.6); Hemoglobin 8.5 gm/dl (11.8-15.2); Mean Corpuscular HGB Conc 35 % (32-34); Mean Corpuscular Volume 83 fl (84-94); Platelet Count 128 K/mm3 (140-440); Red Blood Count 2.88 M/mm3 (3.65-5.03); Red Cell Distribution Width 14.4 % (13.2-15.2)
[2022-01-22 06:10] LABS: Albumin 3.7 g/dL (3.9-5)
[2022-01-22] MEDS: CALCIUM ACETATE 667 MG CAP PO SCH ×3 (08:55→18:26)
[2022-01-22] MEDS: SODIUM BICARBONATE 650 MG TAB PO SCH ×3 (08:55→22:03)
[2022-01-22] MEDS ORDERED: HEPARIN/NS 5000 UNIT/500ML 500 ML IR ONE (09:28)
[2022-01-22] MEDS: amLODIPine 10 MG TAB PO SCH (10:03)
[2022-01-22] MEDS: carvediloL 25 MG TAB PO SCH ×3 (10:03→22:03)
[2022-01-22] MEDS: MINOXIDIL 2.5 MG TAB PO SCH ×3 (10:04→22:03)
[2022-01-22] MEDS: FAMOTIDINE 20 MG TAB PO SCH ×2 (10:04→15:09)
[2022-01-22] MEDS: LIDOCAINE (2%) 20 MG/1 ML VIAL 50 ML MDV INFILTRATI ONE ×2 (10:14→11:04)
[2022-01-22] MEDS: HEPARIN 10,000 UNITS/10 ML VIAL ONE ×2 (10:15→11:12)
[2022-01-22] MEDS ORDERED: fentaNYL 100 MCG/2 ML INJ ONE (10:20)
--- NOTE | 2022-01-22 10:35 | Progress Note ---
History Interval history: This is a 36-year-old male with known past medical history of HIV/AIDS, HTN, and possible medical noncompliance admitted for hypertensive emergency and acute on chronic renal failure #Hypertensive Emergency #Possible medical Noncompliance - Presented with SBP in the 200s, s/p Cardene gtt - Hypertensive this am, SBP back up in the 200s despite schedule meds and PRN Hydralazine - X1 dose of IV labetalol given, SBP improved in the 160s - Continue current antihypertensive regimen (Coreg and Amlodipine) - Minoxidil added for better BP control - Continue blood pressure monitor per protocol - PRN Hydralazine to maintain SBP less than 160 #Acute on Chronic Renal Failure #Hyponatremia - Presented with Scr. of 32.6 and Hyperkalemia - baseline renal function is unknown - Per patient, he was informed that he had renal insufficiency by PCP and needed to follow-up with platform mill supervisor but has been unable to due to insurance issues - s/p IV Bumex and Bcarb gtt, Scr. improved to 28.1 this am - Patient remains nonoliguric - Nephrology on consult, appreciated recommendation - Plan for possible iHD tomorrow per Nephro - Vascular Surgery consulted for permacath placement. NPO AMN tonight - Strict intake and output - Avoid nephrotoxic medications; Renally dose medications - Monitor and replace electrolytes as needed #Nausea/Vomiting #Abdominal Pain-resolved #Poor PO intake - Presented with N/V, gen. weakness and fatige, elevated amylase and lipase - CT abd/pelvis shows no acute process in the abdomen or pelvis urinary tract calculi or hydronephrosis. Pancreatitis ruled out - Currently on Clear liquid diet, still c/o of nausea but no vomiting, denied any abdominal pain - Advanced diet as tolerated - PRN antiemetic for N/V - PRN Analgesia for pain control - Trend LFts, amylase, and lipase #H/o HIV/AIDS - Per patient viral load is undetectable - Patient admits noncompliance with meds. - ART on hold for now in the setting of worsen DAWSON. Reassess prior to discharge #Hyperglycemia - Continue BG check and SSI ACHS - Avoid Hypoglycemia #GI/DVT Prophylaxis - PPI- Pepcid - SCDs to bilateral lower extremities while in bed Hospital course to date: 01/20: Patient has been weaned off nicardipine since afternoon and restarted home amlodipine and Coreg, increase in coreg and IV hydral ordered. Transfer to [facility]. COVID-19 PCR pending. Patient currently refusing hemodialysis when informed that he may need hemodialysis but the decision will be made by the platform mill supervisor. 01/21: Off cardene gtt since yesterday. Patient is hypertensive this am despite PRN IV Hydralazine. X1 dose IV labetall administered, SBP down in the 160s. Minoxidil added BID for better BP control. Renal function is unchanged, plan for iHD tomorrow per Nephro. Vascular Surgery consulted for permacath placement. NPO after midnight tonight for permacath placement. Plan of care discussed with patient at the bedside, all questions and concerns addressed at this time. D/W CCM patient is stable for transfer to the floor. 01/22: Blood pressure is much better controlled. IR to perform PermCath placement today. Nephrology to initiate hemodialysis after PermCath placement. CT of abdomen and pelvis revealing no hydronephrosis or obstructive uropathy. Patient has significant proteinuria on urine studies. Follow-up SPEP, serum free light chains, BLANCA, ANCA, Anti-GBM, C3, C4, Hep panel. D/C bicarb drip once start on hemodialysis. Continue to renally dose medications and avoid nephrotoxic agents. Strict I/O's daily Hospitalist Physical - Constitutional Vitals: Temp Pulse Resp BP Pulse Ox 98.0 F 76 18 143/79 97 01/22/22 05:09 01/22/22 05:09 01/21/22 20:36 01/22/22 05:11 01/22/22 07:58 General appearance: Present: no acute distress, well-nourished Results - Labs CBC & Chem 7: 01/22/22 04:49 01/22/22 04:49 Labs: Laboratory Last Values WBC 9.0 K/mm3 (4.5-11.0) 01/22/22 04:49 RBC 2.88 M/mm3 (3.65-5.03) L 01/22/22 04:49 Hgb 8.5 gm/dl (11.8-15.2) L 01/22/22 04:49 Hct 23.9 % (35.5-45.6) L 01/22/22 04:49 MCV 83 fl (84-94) L 01/22/22 04:49 MCH 29 pg (28-32) 01/22/22 04:49 MCHC 35 % (32-34) H 01/22/22 04:49 RDW 14.4 % (13.2-15.2) 01/22/22 04:49 Plt Count 128 K/mm3 (140-440) L 01/22/22 04:49 Lymph % (Auto) 30.5 % (13.4-35.0) 01/20/22 11:23 Gillespie % (Auto) 6.1 % (0.0-7.3) 01/20/22 11:23 Eos % (Auto) 0.6 % (0.0-4.3) 01/20/22 11:23 Baso % (Auto) 0.5 % (0.0-1.8) 01/20/22 11:23 Lymph # (Auto) 2.0 K/mm3 (1.2-5.4) 01/20/22 11:23 Gillespie # (Auto) 0.4 K/mm3 (0.0-0.8) 01/20/22 11:23 Eos # (Auto) 0.0 K/mm3 (0.0-0.4) 01/20/22 11:23 Baso # (Auto) 0.0 K/mm3 (0.0-0.1) 01/20/22 11:23 Add Manual Diff Complete 01/19/22 18:38 Total Counted 100 01/19/22 18:38 Seg Neutrophils % 62.3 % (40.0-70.0) 01/20/22 11:23 Seg Neuts % (Manual) 63.0 % (40.0-70.0) 01/19/22 18:38 Band Neutrophils % 0 % 01/19/22 18:38 Lymphocytes % (Manual) 33.0 % (13.4-35.0) 01/19/22 18:38 Reactive Lymphs % (Man) 0 % 01/19/22 18:38 Monocytes % (Manual) 1.0 % (0.0-7.3) 01/19/22 18:38 Eosinophils % (Manual) 2.0 % (0.0-4.3) 01/19/22 18:38 Basophils % (Manual) 1.0 % (0.0-1.8) 01/19/22 18:38 Metamyelocytes % 0 % 01/19/22 18:38 Myelocytes % 0 % 01/19/22 18:38 Promyelocytes % 0 % 01/19/22 18:38 Blast Cells % 0 % 01/19/22 18:38 Nucleated RBC % Not Reportable 01/19/22 18:38 Seg Neutrophils # 4.2 K/mm3 (1.8-7.7) 01/20/22 11:23 Seg Neutrophils # Man 4.5 K/mm3 (1.8-7.7) 01/19/22 18:38 Band Neutrophils # 0.0 K/mm3 01/19/22 18:38 Lymphocytes # (Manual) 2.4 K/mm3 (1.2-5.4) 01/19/22 18:38 Abs React Lymphs (Man) 0.0 K/mm3 01/19/22 18:38 Monocytes # (Manual) 0.1 K/mm3 (0.0-0.8) 01/19/22 18:38 Eosinophils # (Manual) 0.1 K/mm3 (0.0-0.4) 01/19/22 18:38 Basophils # (Manual) 0.1 K/mm3 (0.0-0.1) 01/19/22 18:38 Metamyelocytes # 0.0 K/mm3 01/19/22 18:38 Myelocytes # 0.0 K/mm3 01/19/22 18:38 Promyelocytes # 0.0 K/mm3 01/19/22 18:38 Blast Cells # 0.0 K/mm3 01/19/22 18:38 WBC Morphology Not Reportable 01/19/22 18:38 Hypersegmented Neuts Not Reportable 01/19/22 18:38 Hyposegmented Neuts Not Reportable 01/19/22 18:38 Hypogranular Neuts Not Reportable 01/19/22 18:38 Smudge Cells Not Reportable 01/19/22 18:38 Toxic Granulation Not Reportable 01/19/22 18:38 Toxic Vacuolation Not Reportable 01/19/22 18:38 Dohle Bodies Not Reportable 01/19/22 18:38 Pelger-Huet Anomaly Not Reportable 01/19/22 18:38 Kallie Rods Not Reportable 01/19/22 18:38 Platelet Estimate Consistent w auto 01/19/22 18:38 Clumped Platelets Not Reportable 01/19/22 18:38 Plt Clumps, EDTA Not Reportable 01/19/22 18:38 Large Platelets Not Reportable 01/19/22 18:38 Giant Platelets Not Reportable 01/19/22 18:38 Platelet Satelliting Not Reportable 01/19/22 18:38 Plt Morphology Comment Not Reportable 01/19/22 18:38 RBC Morphology Not Reportable 01/19/22 18:38 Dimorphic RBCs Not Reportable 01/19/22 18:38 Polychromasia Not Reportable 01/19/22 18:38 Hypochromasia Not Reportable 01/19/22 18:38 Poikilocytosis Not Reportable 01/19/22 18:38 Anisocytosis 1+ 01/19/22 18:38 Microcytosis Not Reportable 01/19/22 18:38 Macrocytosis Not Reportable 01/19/22 18:38 Spherocytes Not Reportable 01/19/22 18:38 Pappenheimer Bodies Not Reportable 01/19/22 18:38 Sickle Cells Not Reportable 01/19/22 18:38 Target Cells Not Reportable 01/19/22 18:38 Tear Drop Cells Not Reportable 01/19/22 18:38 Ovalocytes Not Reportable 01/19/22 18:38 Helmet Cells Not Reportable 01/19/22 18:38 [place] Bodies Not Reportable 01/19/22 18:38 [place] Rings Not Reportable 01/19/22 18:38 Sonido Cells Not Reportable 01/19/22 18:38 Bite Cells Not Reportable 01/19/22 18:38 Crenated Cell Not Reportable 01/19/22 18:38 Elliptocytes Not Reportable 01/19/22 18:38 Acanthocytes (Spur) Not Reportable 01/19/22 18:38 Rouleaux Not Reportable 01/19/22 18:38 Hemoglobin C Crystals Not Reportable 01/19/22 18:38 Schistocytes Not Reportable 01/19/22 18:38 Malaria parasites Not Reportable 01/19/22 18:38 Edgardo Bodies Not Reportable 01/19/22 18:38 Hem Pathologist Commnt No 01/19/22 18:38 Sodium 134 mmol/L (137-145) L 01/22/22 04:49 Potassium 3.9 mmol/L (3.6-5.0) 01/22/22 04:49 Chloride 79.0 mmol/L (98-107) L 01/22/22 04:49 Carbon Dioxide 27 mmol/L (22-30) 01/22/22 04:49 Anion Gap 32 mmol/L 01/22/22 04:49 BUN 193 mg/dL (9-20) H 01/22/22 04:49 Creatinine 27.2 mg/dL (0.8-1.3) H 01/22/22 04:49 Estimated GFR 2 ml/min 01/22/22 04:49 BUN/Creatinine Ratio 7 % 01/22/22 04:49 Glucose 102 mg/dL (75-100) H 01/22/22 04:49 POC Glucose 142 mg/dL (70-105) H 01/21/22 11:41 Calcium 6.0 mg/dL (8.4-10.2) L 01/22/22 04:49 Phosphorus 13.20 mg/dL (2.5-4.5) H 01/22/22 04:49 Magnesium 2.10 mg/dL (1.7-2.3) 01/22/22 04:49 Total Bilirubin 0.40 mg/dL (0.1-1.2) 01/22/22 04:49 AST 21 units/L (5-40) 01/22/22 04:49 ALT 23 units/L (7-56) 01/22/22 04:49 Alkaline Phosphatase 88 units/L (35-129) 01/22/22 04:49 Total Creatine Kinase 690 units/L (55-170) H 01/20/22 11:23 Total Protein 6.5 g/dL (6.3-8.2) D 01/22/22 04:49 Albumin 3.7 g/dL (3.9-5) L 01/22/22 04:49 Albumin/Globulin Ratio 1.3 % 01/22/22 04:49 Amylase 223 units/L (27-131) H 01/22/22 04:49 Lipase 164 units/L (13-60) H 01/22/22 04:49 PTH Intact 443.7 pg/mL (15-65) H 01/20/22 11:38 Urine Color Yellow (Yellow) 01/19/22 Unknown Urine Turbidity Slightly cloudy (Clear) 01/19/22 Unknown Urine pH 6.0 (5.0-7.0) 01/19/22 Unknown Ur Specific [place] 1.025 (1.003-1.030) 01/19/22 Unknown Urine Protein 100 mg/dl mg/dL (Negative) 01/19/22 Unknown Urine Glucose (UA) Negative mg/dL (Negative) 01/19/22 Unknown Urine Ketones Negative mg/dL (Negative) 01/19/22 Unknown Urine Blood Trace (Negative) 01/19/22 Unknown Urine Nitrite Negative (Negative) 01/19/22 Unknown Ur Reducing Substances Not Reportable 01/19/22 Unknown Urine Bilirubin Negative (Negative) 01/19/22 Unknown Urine Ictotest Not Reportable 01/19/22 Unknown Urine Urobilinogen 2.0 mg/dL (<2.0) 01/19/22 Unknown Ur Leukocyte Esterase Negative (Negative) 01/19/22 Unknown Urine WBC (Auto) 4.0 /HPF (0.0-6.0) 01/19/22 Unknown Urine RBC (Auto) 2.0 /HPF (0.0-6.0) 01/19/22 Unknown U Epithel Cells (Auto) 2.0 /HPF (0-13.0) 01/19/22 Unknown Urine Bacteria (Auto) 1+ /HPF (Negative) 01/19/22 Unknown Urine Eosinophils None seen (None Seen) 01/20/22 15:30 Urine Creatinine 64.2 mg/dL (0.1-20.0) H 01/20/22 15:30 Protein/Creatinin Ratio 3.60 01/20/22 15:30 Urine Sodium 83 mmol/L 01/20/22 15:30 Urine Total Protein 231 mg/dL (5-11.8) H 01/20/22 15:30 Coronavirus (PCR) Negative (Negative) 01/20/22 05:28 Hepatitis A IgM Ab Non-reactive (NonReactive) 01/21/22 04:51 Hep Bs Antigen Non-reactive (Negative) 01/21/22 04:51 Hep B Core IgM Ab Non-reactive (NonReactive) 01/21/22 04:51 Hepatitis C Antibody Non-reactive (NonReactive) 01/21/22 04:51 Kiran/IV: Voiding Method Urinal Active Medications - Current Medications Current Medications: Generic Name Dose Route Start Last Admin Trade Name Freq PRN Reason Stop Dose Admin Acetaminophen 650 mg 01/19/22 22:50 01/22/22 05:08 Acetaminophen 325 Mg Tab PO 650 mg Q4H PRN Administration Pain MILD(1-3)/Fever >100.5/OSCAR Amlodipine Besylate 10 mg 01/20/22 10:00 01/22/22 10:03 Amlodipine 10 Mg Tab PO Not Given QDAY [facility] Calcium Acetate 667 mg 01/21/22 17:00 01/22/22 08:55 Calcium Acetate 667 Mg Cap PO Not Given TIDWM [facility] Carvedilol 25 mg 01/20/22 22:00 01/22/22 10:03 Carvedilol 25 Mg Tab PO Not Given BID [facility] Dextrose 50 ml 01/20/22 13:29 Dextrose 50% In Water (25gm) 50 Ml Syringe IV Q30MIN PRN Hypoglycemia Protocol Famotidine 20 mg 01/22/22 10:00 01/22/22 10:04 Famotidine 20 Mg Tab PO Not Given QDAY [facility] Hydralazine HCl 20 mg 01/20/22 12:00 01/22/22 05:11 Hydralazine 20 Mg/1 Ml Inj IV 20 mg Q6HR [facility] Administration Melatonin 5 mg 01/21/22 22:00 01/21/22 21:00 Melatonin 5 Mg Tab PO Not Given QHS [facility] Minoxidil 5 mg 01/21/22 11:00 01/22/22 10:04 Minoxidil 2.5 Mg Tab PO Not Given BID [facility] Morphine Sulfate 2 mg 01/19/22 22:50 01/22/22 06:39 Morphine 2 Mg/1 Ml Inj IV 2 mg Q4H PRN Administration Pain, Moderate (4-6) Ondansetron HCl 4 mg 01/19/22 22:50 01/21/22 21:03 Ondansetron 4 Mg/2 Ml Inj IV 4 mg Q8H PRN Administration Nausea And Vomiting Sodium Bicarbonate 1,300 mg 01/20/22 09:00 01/22/22 08:55 Sodium Bicarbonate 650 Mg Tab PO Not Given TID [facility] Sodium Chloride 10 ml 01/20/22 10:00 01/22/22 10:04 Sodium Chloride 0.9% 10 Ml Flush Syringe IV 10 ml BID JENNY Administration Sodium Chloride 10 ml 01/19/22 22:50 01/22/22 06:39 Sodium Chloride 0.9% 10 Ml Flush Syringe IV 10 ml PRN PRN Administration LINE FLUSH
[2022-01-22] MEDS ORDERED: SODIUM CHLORIDE 0.9% 500 ML 500 ML ONE (10:38)
--- NOTE | 2022-01-22 11:40 | Progress Note ---
Assessment and Plan Assessment: Acute Kidney injury on top of CKD vs Progressive CKD, Could have HIVAN, requring dialysis initiation: S/P Hyperkalemia: Metabolic acidosis: HIV: Hypertension: Nausea and vomitinHPT from CKD: Hyperphosphatemia Plan: -Renal labs reviewed. Serum creatinine 27.2 today with BUN elevated at 193 -States he was referred to a contract management specialist outpatiently and was suppose to comp lete a scan for kidneys but was not able to do both as yet. Baseline serum creatinine unknown. -Given no significant improvement in renal function, discussed hemodialysis initiation recommendation with patient, explained risks and benefits on dialysis and procedures involved to include perm-catheter placement. Patient consented for perm-catheter placement and hemodialysis initiation. -Consulted IR for perm-catheter placement, to be placed today -Hemodialysis today after perm-catheter is placed -CT of Abdomen and Pelvis-No hydronephrosis -Urine studies reviewed, has proteinuria. -Ordered SPEP, serum free light chains, BLANCA, ANCA, Anti-GBM, C3, C4, Hep panel -Hyperphosphatemia-Started on Phoslo 667 mg po TID with meals -D/C bicarb drip once start on hemodialysis -Renally dose all medications -Avoid Nephrotoxic agents -PTH high signalling 2HPT from CKD -Strict I/O's daily -Obtain daily weights -Monitor renal function closely -Assess dialysis needs daily -Plan of care reviewed by Dr. Rodriguez Subjective Date of service: 01/22/22 Principal diagnosis: Severe renal failure Interval history: Patient off floor for perm-catheter placement Objective - Vital Signs Vital signs: Vital Signs - 12hr 01/22/22 01/22/22 01/22/22 05:09 05:11 07:58 Temperature 98.0 F Pulse Rate 76 Blood Pressure 143/79 143/79 O2 Sat by Pulse 100 97 Oximetry - Lab 01/22/22 04:49 01/22/22 04:49 Most recent lab results Calcium 6.0 mg/dL (8.4-10.2) L 01/22/22 04:49 Phosphorus 13.20 mg/dL (2.5-4.5) H 01/22/22 04:49 Magnesium 2.10 mg/dL (1.7-2.3) 01/22/22 04:49 Urine Creatinine 64.2 mg/dL (0.1-20.0) H 01/20/22 15:30 Urine Sodium 83 mmol/L 01/20/22 15:30 Urine Total Protein 231 mg/dL (5-11.8) H 01/20/22 15:30 Medications & Allergies - Medications Allergies/Adverse Reactions: Allergies No Known Allergies Allergy (Unverified 01/19/22 15:40) Active Medications: Generic Name Dose Route Start Last Admin Trade Name Freq PRN Reason Stop Dose Admin Acetaminophen 650 mg 01/19/22 22:50 01/22/22 05:08 Acetaminophen 325 Mg Tab PO 650 mg Q4H PRN Administration Pain MILD(1-3)/Fever >100.5/OSCAR Amlodipine Besylate 10 mg 01/20/22 10:00 01/22/22 10:03 Amlodipine 10 Mg Tab PO Not Given QDAY [facility] Calcium Acetate 667 mg 01/21/22 17:00 01/22/22 08:55 Calcium Acetate 667 Mg Cap PO Not Given TIDWM [facility] Carvedilol 25 mg 01/20/22 22:00 01/22/22 10:03 Carvedilol 25 Mg Tab PO Not Given BID [facility] Dextrose 50 ml 01/20/22 13:29 Dextrose 50% In Water (25gm) 50 Ml Syringe IV Q30MIN PRN Hypoglycemia Protocol Famotidine 20 mg 01/22/22 10:00 01/22/22 10:04 Famotidine 20 Mg Tab PO Not Given QDAY [facility] Hydralazine HCl 20 mg 01/20/22 12:00 01/22/22 05:11 Hydralazine 20 Mg/1 Ml Inj IV 20 mg Q6HR [facility] Administration Melatonin 5 mg 01/21/22 22:00 01/21/22 21:00 Melatonin 5 Mg Tab PO Not Given QHS [facility] Minoxidil 5 mg 01/21/22 11:00 01/22/22 10:04 Minoxidil 2.5 Mg Tab PO Not Given BID [facility] Morphine Sulfate 2 mg 01/19/22 22:50 01/22/22 06:39 Morphine 2 Mg/1 Ml Inj IV 2 mg Q4H PRN Administration Pain, Moderate (4-6) Ondansetron HCl 4 mg 01/19/22 22:50 01/21/22 21:03 Ondansetron 4 Mg/2 Ml Inj IV 4 mg Q8H PRN Administration Nausea And Vomiting Sodium Bicarbonate 1,300 mg 01/20/22 09:00 01/22/22 08:55 Sodium Bicarbonate 650 Mg Tab PO Not Given TID JENNY Sodium Chloride 10 ml 01/20/22 10:00 01/22/22 10:04 Sodium Chloride 0.9% 10 Ml Flush Syringe IV 10 ml BID JENNY Administration Sodium Chloride 10 ml 01/19/22 22:50 01/22/22 06:39 Sodium Chloride 0.9% 10 Ml Flush Syringe IV 10 ml PRN PRN Administration LINE FLUSH
--- NOTE | 2022-01-22 11:51 | Operative Report ---
Operative Report Operative Report: Date of procedure: 01/22/2022 Pre-operative diagnosis: Acute on Chronic Renal Failure Post-operative diagnosis: Same Procedure(s): 1. Ultrasound-Guided Access Right Internal Vein 2. Placement of 23 cm GlidePath Permacath 3. Radiologic Supervision with Interpretation 4. Monitored Moderate Sedation (Total Anesthesia Time: 15 Minutes) Surgeon: Jan Vincent MD Flour Mixer: None Anesthesia: Local/Monitored Moderate Sedation Total Anesthesia Time: 15 Minutes EBL: Minimal Counts: Correct Complications: None Condition: Stable Findings: Successful placement of right IJ permacath with the distal tip in the right atrium and no evidence of pneumothorax at the completion of the case. Specimen: None Indication: The patient is a 36-year-old male who presented with renal failure and was determined to be in end-stage renal disease. He is in need of permacath for the initiation of dialysis. He was given the risk, benefits, and alternative procedures and consented to the procedure. Description of Procedure: The patient was brought to the lab[facility] egg producing farm and laid in supine position and the right neck and chest were prepped and draped in normal sterile fashion. Ultrasound was used to identify the right internal jugular vein and the overlying skin and soft tissue was anesthetized with lidocaine. An 11 blade was used to make a small stab incision and a 21-gauge micropuncture needle was used with ultrasound guidance to enter the right internal jugular vein. A 0.018 micropuncture wire was advanced into the inferior vena cava under fluoroscopy and after removing the needle the micropuncture sheath was advanced into the internal jugular vein by Seldinger technique. The wire and inner cannula were removed and a 0.035 J-wire was advanced into the inferior vena cava under direct fluoroscopic visualization. The tract was serially dilated up to a 16 Lao peel-away safety sheath. An exit site on the chest was then chosen and the presumed tunnel was anesthetized with lidocaine. A small stab incision was made on the chest and then the permacath was connected to the tunneler and pulled antegrade through the tunnel. The J-wire and inner cannula were remove from the SafeSheath and the catheter was inserted into the safe sheath. The safe sheath was then peeled away while advancing the catheter. The catheter was positioned under fluoroscopy with the distal tip in the right atrium. Once in adequate position, both ports were aspirated, flushed, and primed with the appropriate amount of heparin. The neck incision was then closed with 4-0 Monocryl in interrupted subcuticular fashion and dressed with Dermabond. The permacath was secured in place with a 2-0 Ethilon in interrupted fashion and dressed with a sterile dressing. Final fluoroscopy demonstrated the catheter was in adequate position with the distal tip in the right atrium and no evidence of pneumothorax. The patient tolerated the procedure well. All sponge, needle, and instrument counts were correct. The patient was taken to recovery in stable condition.
[2022-01-22] MEDS: ONDANSETRON 4 MG/2 ML INJ IV PRN (15:58)
[2022-01-22] MEDS: MELATONIN 5 MG TAB PO SCH (22:03)
[2022-01-23] MEDS: hydrALAZINE 20 MG/1 ML INJ IV SCH ×5 (01:01→17:33)
[2022-01-23 06:41] LABS: Calcium 6.9 mg/dL (8.4-10.2)
[2022-01-23 07:59] LABS: Iron 61 ug/dL (49-181); Total Iron Binding Capacity 148 mcg/dL (250-450)
[2022-01-23] MEDS: CALCIUM ACETATE 667 MG CAP PO SCH ×3 (08:02→17:20)
[2022-01-23] MEDS: SODIUM BICARBONATE 650 MG TAB PO SCH (08:02)
[2022-01-23] MEDS: amLODIPine 10 MG TAB PO SCH (09:47)
[2022-01-23] MEDS: carvediloL 25 MG TAB PO SCH ×2 (09:47→21:50)
[2022-01-23] MEDS: FAMOTIDINE 20 MG TAB PO SCH (09:47)
[2022-01-23] MEDS: MINOXIDIL 2.5 MG TAB PO SCH ×2 (09:47→21:51)
--- NOTE | 2022-01-23 10:12 | Progress Note ---
History Interval history: This is a 36-year-old male with known past medical history of HIV/AIDS, HTN, and possible medical noncompliance admitted for hypertensive emergency and acute on chronic renal failure #Hypertensive Emergency #Possible medical Noncompliance - Presented with SBP in the 200s, s/p Cardene gtt - Hypertensive this am, SBP back up in the 200s despite schedule meds and PRN Hydralazine - X1 dose of IV labetalol given, SBP improved in the 160s - Continue current antihypertensive regimen (Coreg and Amlodipine) - Minoxidil added for better BP control - Continue blood pressure monitor per protocol - PRN Hydralazine to maintain SBP less than 160 #Acute on Chronic Renal Failure #Hyponatremia - Presented with Scr. of 32.6 and Hyperkalemia - baseline renal function is unknown - Per patient, he was informed that he had renal insufficiency by PCP and needed to follow-up with rn clinical coordinator but has been unable to due to insurance issues - s/p IV Bumex and Bcarb gtt, Scr. improved to 28.1 this am - Patient remains nonoliguric - Nephrology on consult, appreciated recommendation - Plan for possible iHD tomorrow per Nephro - Vascular Surgery consulted for permacath placement. NPO AMN tonight - Strict intake and output - Avoid nephrotoxic medications; Renally dose medications - Monitor and replace electrolytes as needed #Nausea/Vomiting #Abdominal Pain-resolved #Poor PO intake - Presented with N/V, gen. weakness and fatige, elevated amylase and lipase - CT abd/pelvis shows no acute process in the abdomen or pelvis urinary tract calculi or hydronephrosis. Pancreatitis ruled out - Currently on Clear liquid diet, still c/o of nausea but no vomiting, denied any abdominal pain - Advanced diet as tolerated - PRN antiemetic for N/V - PRN Analgesia for pain control - Trend LFts, amylase, and lipase #H/o HIV/AIDS - Per patient viral load is undetectable - Patient admits noncompliance with meds. - ART on hold for now in the setting of worsen DAWSON. Reassess prior to discharge #Hyperglycemia - Continue BG check and SSI ACHS - Avoid Hypoglycemia #GI/DVT Prophylaxis - PPI- Pepcid - SCDs to bilateral lower extremities while in bed Hospital course to date: 01/20: Patient has been weaned off nicardipine since afternoon and restarted home amlodipine and Coreg, increase in coreg and IV hydral ordered. Transfer to [facility]. COVID-19 PCR pending. Patient currently refusing hemodialysis when informed that he may need hemodialysis but the decision will be made by the rn clinical coordinator. 01/21: Off cardene gtt since yesterday. Patient is hypertensive this am despite PRN IV Hydralazine. X1 dose IV labetall administered, SBP down in the 160s. Minoxidil added BID for better BP control. Renal function is unchanged, plan for iHD tomorrow per Nephro. Vascular Surgery consulted for permacath placement. NPO after midnight tonight for permacath placement. Plan of care discussed with patient at the bedside, all questions and concerns addressed at this time. D/W CCM patient is stable for transfer to the floor. 01/22: Blood pressure is much better controlled. IR to perform PermCath placement today. Nephrology to initiate hemodialysis after PermCath placement. CT of abdomen and pelvis revealing no hydronephrosis or obstructive uropathy. Patient has significant proteinuria on urine studies. Follow-up SPEP, serum free light chains, BLANCA, ANCA, Anti-GBM, C3, C4, Hep panel. D/C bicarb drip once start on hemodialysis. Continue to renally dose medications and avoid nephrotoxic agents. Strict I/O's daily 01/23: Patient is s/p PermCath placement for initiation of hemodialysis. Follow- up SPEP, serum free light chains, BLANCA, ANCA, Anti-GBM, C3, C4, Hep panel. Continue to renally dose medications and avoid nephrotoxic agents. Strict I/O's daily. Blood pressure remains better controlled. We will discuss with case management plans for outpatient hemodialysis chair Hospitalist Physical - Constitutional Vitals: Temp Pulse Resp BP Pulse Ox 98.2 F 85 18 110/49 98 01/23/22 05:48 01/23/22 05:48 01/22/22 22:05 01/23/22 06:31 01/23/22 09:52 General appearance: Present: no acute distress, well-nourished Results - Labs CBC & Chem 7: 01/22/22 04:49 01/23/22 05:53 Labs: Laboratory Last Values WBC 9.0 K/mm3 (4.5-11.0) 01/22/22 04:49 RBC 2.88 M/mm3 (3.65-5.03) L 01/22/22 04:49 Hgb 8.5 gm/dl (11.8-15.2) L 01/22/22 04:49 Hct 23.9 % (35.5-45.6) L 01/22/22 04:49 MCV 83 fl (84-94) L 01/22/22 04:49 MCH 29 pg (28-32) 01/22/22 04:49 MCHC 35 % (32-34) H 01/22/22 04:49 RDW 14.4 % (13.2-15.2) 01/22/22 04:49 Plt Count 128 K/mm3 (140-440) L 01/22/22 04:49 Lymph % (Auto) 30.5 % (13.4-35.0) 01/20/22 11:23 Pender % (Auto) 6.1 % (0.0-7.3) 01/20/22 11:23 Eos % (Auto) 0.6 % (0.0-4.3) 01/20/22 11:23 Baso % (Auto) 0.5 % (0.0-1.8) 01/20/22 11:23 Lymph # (Auto) 2.0 K/mm3 (1.2-5.4) 01/20/22 11:23 Pender # (Auto) 0.4 K/mm3 (0.0-0.8) 01/20/22 11:23 Eos # (Auto) 0.0 K/mm3 (0.0-0.4) 01/20/22 11:23 Baso # (Auto) 0.0 K/mm3 (0.0-0.1) 01/20/22 11:23 Add Manual Diff Complete 01/19/22 18:38 Total Counted 100 01/19/22 18:38 Seg Neutrophils % 62.3 % (40.0-70.0) 01/20/22 11:23 Seg Neuts % (Manual) 63.0 % (40.0-70.0) 01/19/22 18:38 Band Neutrophils % 0 % 01/19/22 18:38 Lymphocytes % (Manual) 33.0 % (13.4-35.0) 01/19/22 18:38 Reactive Lymphs % (Man) 0 % 01/19/22 18:38 Monocytes % (Manual) 1.0 % (0.0-7.3) 01/19/22 18:38 Eosinophils % (Manual) 2.0 % (0.0-4.3) 01/19/22 18:38 Basophils % (Manual) 1.0 % (0.0-1.8) 01/19/22 18:38 Metamyelocytes % 0 % 01/19/22 18:38 Myelocytes % 0 % 01/19/22 18:38 Promyelocytes % 0 % 01/19/22 18:38 Blast Cells % 0 % 01/19/22 18:38 Nucleated RBC % Not Reportable 01/19/22 18:38 Seg Neutrophils # 4.2 K/mm3 (1.8-7.7) 01/20/22 11:23 Seg Neutrophils # Man 4.5 K/mm3 (1.8-7.7) 01/19/22 18:38 Band Neutrophils # 0.0 K/mm3 01/19/22 18:38 Lymphocytes # (Manual) 2.4 K/mm3 (1.2-5.4) 01/19/22 18:38 Abs React Lymphs (Man) 0.0 K/mm3 01/19/22 18:38 Monocytes # (Manual) 0.1 K/mm3 (0.0-0.8) 01/19/22 18:38 Eosinophils # (Manual) 0.1 K/mm3 (0.0-0.4) 01/19/22 18:38 Basophils # (Manual) 0.1 K/mm3 (0.0-0.1) 01/19/22 18:38 Metamyelocytes # 0.0 K/mm3 01/19/22 18:38 Myelocytes # 0.0 K/mm3 01/19/22 18:38 Promyelocytes # 0.0 K/mm3 01/19/22 18:38 Blast Cells # 0.0 K/mm3 01/19/22 18:38 WBC Morphology Not Reportable 01/19/22 18:38 Hypersegmented Neuts Not Reportable 01/19/22 18:38 Hyposegmented Neuts Not Reportable 01/19/22 18:38 Hypogranular Neuts Not Reportable 01/19/22 18:38 Smudge Cells Not Reportable 01/19/22 18:38 Toxic Granulation Not Reportable 01/19/22 18:38 Toxic Vacuolation Not Reportable 01/19/22 18:38 Dohle Bodies Not Reportable 01/19/22 18:38 Pelger-Huet Anomaly Not Reportable 01/19/22 18:38 Kallie Rods Not Reportable 01/19/22 18:38 Platelet Estimate Consistent w auto 01/19/22 18:38 Clumped Platelets Not Reportable 01/19/22 18:38 Plt Clumps, EDTA Not Reportable 01/19/22 18:38 Large Platelets Not Reportable 01/19/22 18:38 Giant Platelets Not Reportable 01/19/22 18:38 Platelet Satelliting Not Reportable 01/19/22 18:38 Plt Morphology Comment Not Reportable 01/19/22 18:38 RBC Morphology Not Reportable 01/19/22 18:38 Dimorphic RBCs Not Reportable 01/19/22 18:38 Polychromasia Not Reportable 01/19/22 18:38 Hypochromasia Not Reportable 01/19/22 18:38 Poikilocytosis Not Reportable 01/19/22 18:38 Anisocytosis 1+ 01/19/22 18:38 Microcytosis Not Reportable 01/19/22 18:38 Macrocytosis Not Reportable 01/19/22 18:38 Spherocytes Not Reportable 01/19/22 18:38 Pappenheimer Bodies Not Reportable 01/19/22 18:38 Sickle Cells Not Reportable 01/19/22 18:38 Target Cells Not Reportable 01/19/22 18:38 Tear Drop Cells Not Reportable 01/19/22 18:38 Ovalocytes Not Reportable 01/19/22 18:38 Helmet Cells Not Reportable 01/19/22 18:38 [place] Bodies Not Reportable 01/19/22 18:38 [place] Rings Not Reportable 01/19/22 18:38 Sonido Cells Not Reportable 01/19/22 18:38 Bite Cells Not Reportable 01/19/22 18:38 Crenated Cell Not Reportable 01/19/22 18:38 Elliptocytes Not Reportable 01/19/22 18:38 Acanthocytes (Spur) Not Reportable 01/19/22 18:38 Rouleaux Not Reportable 01/19/22 18:38 Hemoglobin C Crystals Not Reportable 01/19/22 18:38 Schistocytes Not Reportable 01/19/22 18:38 Malaria parasites Not Reportable 01/19/22 18:38 Edgardo Bodies Not Reportable 01/19/22 18:38 Hem Pathologist Commnt No 01/19/22 18:38 Sodium 137 mmol/L (137-145) 01/23/22 05:53 Potassium 4.1 mmol/L (3.6-5.0) 01/23/22 05:53 Chloride 91.2 mmol/L (98-107) L 01/23/22 05:53 Carbon Dioxide 27 mmol/L (22-30) 01/23/22 05:53 Anion Gap 23 mmol/L 01/23/22 05:53 BUN 92 mg/dL (9-20) H 01/23/22 05:53 Creatinine 15.3 mg/dL (0.8-1.3) H 01/23/22 05:53 Estimated GFR 4 ml/min 01/23/22 05:53 BUN/Creatinine Ratio 6 % 01/23/22 05:53 Glucose 103 mg/dL (75-100) H 01/23/22 05:53 POC Glucose 142 mg/dL (70-105) H 01/21/22 11:41 Calcium 6.9 mg/dL (8.4-10.2) L 01/23/22 05:53 Phosphorus 13.20 mg/dL (2.5-4.5) H 01/22/22 04:49 Magnesium 2.10 mg/dL (1.7-2.3) 01/22/22 04:49 Iron 61 ug/dL (49-181) 01/23/22 05:53 TIBC 148 mcg/dL (250-450) L 01/23/22 05:53 Total Bilirubin 0.40 mg/dL (0.1-1.2) 01/22/22 04:49 AST 21 units/L (5-40) 01/22/22 04:49 ALT 23 units/L (7-56) 01/22/22 04:49 Alkaline Phosphatase 88 units/L (35-129) 01/22/22 04:49 Total Creatine Kinase 690 units/L (55-170) H 01/20/22 11:23 Total Protein 6.5 g/dL (6.3-8.2) D 01/22/22 04:49 Albumin 3.7 g/dL (3.9-5) L 01/22/22 04:49 Albumin/Globulin Ratio 1.3 % 01/22/22 04:49 Amylase 223 units/L (27-131) H 01/22/22 04:49 Lipase 164 units/L (13-60) H 01/22/22 04:49 PTH Intact 443.7 pg/mL (15-65) H 01/20/22 11:38 Urine Color Yellow (Yellow) 01/19/22 Unknown Urine Turbidity Slightly cloudy (Clear) 01/19/22 Unknown Urine pH 6.0 (5.0-7.0) 01/19/22 Unknown Ur Specific Steger 1.025 (1.003-1.030) 01/19/22 Unknown Urine Protein 100 mg/dl mg/dL (Negative) 01/19/22 Unknown Urine Glucose (UA) Negative mg/dL (Negative) 01/19/22 Unknown Urine Ketones Negative mg/dL (Negative) 01/19/22 Unknown Urine Blood Trace (Negative) 01/19/22 Unknown Urine Nitrite Negative (Negative) 01/19/22 Unknown Ur Reducing Substances Not Reportable 01/19/22 Unknown Urine Bilirubin Negative (Negative) 01/19/22 Unknown Urine Ictotest Not Reportable 01/19/22 Unknown Urine Urobilinogen 2.0 mg/dL (<2.0) 01/19/22 Unknown Ur Leukocyte Esterase Negative (Negative) 01/19/22 Unknown Urine WBC (Auto) 4.0 /HPF (0.0-6.0) 01/19/22 Unknown Urine RBC (Auto) 2.0 /HPF (0.0-6.0) 01/19/22 Unknown U Epithel Cells (Auto) 2.0 /HPF (0-13.0) 01/19/22 Unknown Urine Bacteria (Auto) 1+ /HPF (Negative) 01/19/22 Unknown Urine Eosinophils None seen (None Seen) 01/20/22 15:30 Urine Creatinine 64.2 mg/dL (0.1-20.0) H 01/20/22 15:30 Protein/Creatinin Ratio 3.60 01/20/22 15:30 Urine Sodium 83 mmol/L 01/20/22 15:30 Urine Total Protein 231 mg/dL (5-11.8) H 01/20/22 15:30 Coronavirus (PCR) Negative (Negative) 01/20/22 05:28 Hepatitis A IgM Ab Non-reactive (NonReactive) 01/21/22 04:51 Hep Bs Antigen Non-reactive (Negative) 01/21/22 04:51 Hep B Core IgM Ab Non-reactive (NonReactive) 01/21/22 04:51 Hepatitis C Antibody Non-reactive (NonReactive) 01/21/22 04:51 Kiran/IV: Voiding Method Urinal Active Medications - Current Medications Current Medications: Generic Name Dose Route Start Last Admin Trade Name Freq PRN Reason Stop Dose Admin Acetaminophen 650 mg 01/19/22 22:50 01/22/22 05:08 Acetaminophen 325 Mg Tab PO 650 mg Q4H PRN Administration Pain MILD(1-3)/Fever >100.5/OSCAR Amlodipine Besylate 10 mg 01/20/22 10:00 01/23/22 09:47 Amlodipine 10 Mg Tab PO 10 mg QDAY JENNY Administration Calcium Acetate 667 mg 01/21/22 17:00 01/23/22 08:02 Calcium Acetate 667 Mg Cap PO 667 mg TIDWM JENNY Administration Carvedilol 25 mg 01/20/22 22:00 01/23/22 09:47 Carvedilol 25 Mg Tab PO 25 mg BID JENNY Administration Dextrose 50 ml 01/20/22 13:29 Dextrose 50% In Water (25gm) 50 Ml Syringe IV Q30MIN PRN Hypoglycemia Protocol Famotidine 20 mg 01/22/22 10:00 01/23/22 09:47 Famotidine 20 Mg Tab PO 20 mg QDAY JENNY Administration Hydralazine HCl 20 mg 01/20/22 12:00 01/23/22 06:31 Hydralazine 20 Mg/1 Ml Inj IV Not Given Q6HR JENNY Melatonin 5 mg 01/21/22 22:00 01/22/22 22:03 Melatonin 5 Mg Tab PO 5 mg QHS JENNY Administration Minoxidil 5 mg 01/21/22 11:00 01/23/22 09:47 Minoxidil 2.5 Mg Tab PO 5 mg BID JENNY Administration Morphine Sulfate 2 mg 01/19/22 22:50 01/22/22 22:04 Morphine 2 Mg/1 Ml Inj IV 2 mg Q4H PRN Administration Pain, Moderate (4-6) Ondansetron HCl 4 mg 01/19/22 22:50 01/22/22 15:58 Ondansetron 4 Mg/2 Ml Inj IV 4 mg Q8H PRN Administration Nausea And Vomiting Sodium Bicarbonate 1,300 mg 01/20/22 09:00 01/23/22 08:02 Sodium Bicarbonate 650 Mg Tab PO 1,300 mg TID JENNY Administration Sodium Chloride 10 ml 01/20/22 10:00 01/22/22 22:04 Sodium Chloride 0.9% 10 Ml Flush Syringe IV 10 ml BID JENNY Administration Sodium Chloride 10 ml 01/19/22 22:50 01/22/22 06:39 Sodium Chloride 0.9% 10 Ml Flush Syringe IV 10 ml PRN PRN Administration LINE FLUSH
--- NOTE | 2022-01-23 11:27 | Progress Note ---
Assessment and Plan Assessment: Acute Kidney injury on top of CKD vs Progressive CKD, Could have HIVAN, requring dialysis initiation: S/P Hyperkalemia: Metabolic acidosis: HIV: Hypertension: Nausea and vomitinHPT from CKD: Hyperphosphatemia Plan: -Hemodialysis again today for UF and clearance -S/P perm-catheter placement and first hemodialysis session on 01/22/22 -CT of Abdomen and Pelvis-No hydronephrosis -Urine studies reviewed, has proteinuria. -SPEP, serum free light chains, BLANCA, ANCA, Anti-GBM, C3, C4-pending -Hep panel- negative. Consented to HIV (DNA/RNA PCR) testing today. -HIV meds on hold due to severe renal failure -Hyperphosphatemia-on Phoslo 667 mg po TID with meals -Renally dose all medications -Avoid Nephrotoxic agents -PTH high signalling 2HPT from CKD -Strict I/O's daily -Obtain daily weights -Monitor renal function closely -Assess dialysis needs daily -Plan of care reviewed by Dr. Rodriguez Subjective Date of service: 01/23/22 Principal diagnosis: Severe renal failure Interval history: Patient seen in dialysis unit. Tolerating HD well. Objective - Vital Signs Vital signs: Vital Signs - 12hr 01/23/22 01/23/22 01/23/22 05:48 06:31 09:52 Temperature 98.2 F Pulse Rate 85 Blood Pressure 110/49 110/49 O2 Sat by Pulse 100 98 Oximetry 01/23/22 10:00 Temperature Pulse Rate Blood Pressure O2 Sat by Pulse 96 Oximetry - General Appearance General appearance: well-developed, appears stated age EENT: ATNC, PERRL, hearing intact, vision intact Neck: no JVD, supple Respiratory: Present: Decreased Breath Sounds Cardiology: S1S2 Gastrointestinal: normoactive bowel sounds Integumentary: warm and dry Neurologic: alert and oriented x3 Musculoskeletal: other (No edema) - Lab 01/22/22 04:49 01/23/22 05:53 Most recent lab results Calcium 6.9 mg/dL (8.4-10.2) L 01/23/22 05:53 Phosphorus 13.20 mg/dL (2.5-4.5) H 01/22/22 04:49 Magnesium 2.10 mg/dL (1.7-2.3) 01/22/22 04:49 Urine Creatinine 64.2 mg/dL (0.1-20.0) H 01/20/22 15:30 Urine Sodium 83 mmol/L 01/20/22 15:30 Urine Total Protein 231 mg/dL (5-11.8) H 01/20/22 15:30 Medications & Allergies - Medications Allergies/Adverse Reactions: Allergies No Known Allergies Allergy (Unverified 01/19/22 15:40) Home Medications: Home Medications Medication Instructions Recorded Confirmed Last Taken Type Abacavir-Lamivudine 600-300 mg 600 mg PO DAILY 01/23/22 01/23/22 Unknown History Calcium Carbonate [Calcium Antacid] 300 mg PO TID 01/23/22 01/23/22 Unknown History Dolutegravir [Tivicay] 50 mg PO DAILY 01/23/22 01/23/22 Unknown History Sodium Bicarbonate 1,300 mg PO TID 01/23/22 01/23/22 Unknown History amLODIPine [Norvasc] 10 mg PO DAILY 01/23/22 01/23/22 Unknown History carvediloL [Coreg] 12.5 mg PO BID 01/23/22 01/23/22 Unknown History Active Medications: Generic Name Dose Route Start Last Admin Trade Name Freq PRN Reason Stop Dose Admin Acetaminophen 650 mg 01/19/22 22:50 01/22/22 05:08 Acetaminophen 325 Mg Tab PO 650 mg Q4H PRN Administration Pain MILD(1-3)/Fever >100.5/OSCAR Amlodipine Besylate 10 mg 01/20/22 10:00 01/23/22 09:47 Amlodipine 10 Mg Tab PO 10 mg QDAY JENNY Administration Calcium Acetate 667 mg 01/21/22 17:00 01/23/22 08:02 Calcium Acetate 667 Mg Cap PO 667 mg TIDWM JENNY Administration Carvedilol 25 mg 01/20/22 22:00 01/23/22 09:47 Carvedilol 25 Mg Tab PO 25 mg BID JENNY Administration Dextrose 50 ml 01/20/22 13:29 Dextrose 50% In Water (25gm) 50 Ml Syringe IV Q30MIN PRN Hypoglycemia Protocol Famotidine 20 mg 01/22/22 10:00 01/23/22 09:47 Famotidine 20 Mg Tab PO 20 mg QDAY JENNY Administration Hydralazine HCl 20 mg 01/20/22 12:00 01/23/22 06:31 Hydralazine 20 Mg/1 Ml Inj IV Not Given Q6HR JENNY Melatonin 5 mg 01/21/22 22:00 01/22/22 22:03 Melatonin 5 Mg Tab PO 5 mg QHS JENNY Administration Minoxidil 5 mg 01/21/22 11:00 01/23/22 09:47 Minoxidil 2.5 Mg Tab PO 5 mg BID JENNY Administration Morphine Sulfate 2 mg 01/19/22 22:50 01/22/22 22:04 Morphine 2 Mg/1 Ml Inj IV 2 mg Q4H PRN Administration Pain, Moderate (4-6) Ondansetron HCl 4 mg 01/19/22 22:50 01/22/22 15:58 Ondansetron 4 Mg/2 Ml Inj IV 4 mg Q8H PRN Administration Nausea And Vomiting Sodium Bicarbonate 1,300 mg 01/20/22 09:00 01/23/22 08:02 Sodium Bicarbonate 650 Mg Tab PO 1,300 mg TID JENNY Administration Sodium Chloride 10 ml 01/20/22 10:00 01/22/22 22:04 Sodium Chloride 0.9% 10 Ml Flush Syringe IV 10 ml BID JENNY Administration Sodium Chloride 10 ml 01/19/22 22:50 01/22/22 06:39 Sodium Chloride 0.9% 10 Ml Flush Syringe IV 10 ml PRN PRN Administration LINE FLUSH
[2022-01-23] MEDS: hydrALAZINE 25 MG TAB PO SCH (21:50)
[2022-01-23] MEDS: MELATONIN 5 MG TAB PO SCH (21:54)
[2022-01-24] MEDS: hydrALAZINE 25 MG TAB PO SCH ×3 (05:00→22:55)
[2022-01-24 08:37] LABS: Basophils % (Auto) 0.4 % (0.0-1.8); Eosinophils # (Auto) 0.1 K/mm3 (0.0-0.4); Hematocrit 21.4 % (35.5-45.6); Hemoglobin 7.3 gm/dl (11.8-15.2); Lymphocytes # (Auto) 2.4 K/mm3 (1.2-5.4); Lymphocytes % (Auto) 21.8 % (13.4-35.0); Mean Corpuscular HGB Conc 34 % (32-34); Mean Corpuscular Volume 86 fl (84-94); Monocytes # (Auto) 1.4 K/mm3 (0.0-0.8); Monocytes % (Auto) 12.7 % (0.0-7.3); Platelet Count 165 K/mm3 (140-440); Red Blood Count 2.49 M/mm3 (3.65-5.03); Red Cell Distribution Width 14.7 % (13.2-15.2)
[2022-01-24] MEDS: CALCIUM ACETATE 667 MG CAP PO SCH ×3 (08:43→18:00)
[2022-01-24 08:57] LABS: Calcium 8.6 mg/dL (8.4-10.2)
--- NOTE | 2022-01-24 09:02 | Progress Note ---
Assessment and Plan Acute Kidney injury on top of CKD vs Progressive CKD, Could have HIVAN, requring dialysis initiation: S/P Hyperkalemia: Metabolic acidosis: HIV: Hypertension: Nausea and vomitinHPT from CKD: Hyperphosphatemia Plan: -no indciation for HD today -S/P perm-catheter placement and first hemodialysis session on 01/22/22 -CT of Abdomen and Pelvis-No hydronephrosis -Urine studies reviewed, has proteinuria. -SPEP, serum free light chains, BLANCA, ANCA, Anti-GBM, C3, C4-pending -Hep panel- negative. Consented to HIV (DNA/RNA PCR) testing today. -HIV meds on hold due to severe renal failure -Hyperphosphatemia-on Phoslo 667 mg po TID with meals -Renally dose all medications -Avoid Nephrotoxic agents -PTH high signalling 2HPT from CKD -Strict I/O's daily -Obtain daily weights -Monitor renal function closely -Assess dialysis needs daily Subjective Date of service: 01/24/22 Principal diagnosis: Severe renal failure Interval history: tolerated HD yesterday Objective - Vital Signs Vital signs: Vital Signs - 12hr 01/23/22 01/23/22 01/24/22 21:15 21:50 03:32 Temperature 98.6 F 98.3 F Pulse Rate 90 90 Respiratory 16 16 Rate Blood Pressure 105/42 105/42 110/53 O2 Sat by Pulse 98 99 Oximetry 01/24/22 05:00 Temperature Pulse Rate Respiratory Rate Blood Pressure 110/53 O2 Sat by Pulse Oximetry - Lab 01/24/22 07:15 01/24/22 07:45 Most recent lab results Calcium 6.9 mg/dL (8.4-10.2) L 01/23/22 05:53 Phosphorus 13.20 mg/dL (2.5-4.5) H 01/22/22 04:49 Magnesium 2.10 mg/dL (1.7-2.3) 01/22/22 04:49 Urine Creatinine 64.2 mg/dL (0.1-20.0) H 01/20/22 15:30 Urine Sodium 83 mmol/L 01/20/22 15:30 Urine Total Protein 231 mg/dL (5-11.8) H 01/20/22 15:30 Medications & Allergies - Medications Allergies/Adverse Reactions: Allergies No Known Allergies Allergy (Verified 01/24/22 08:49) Home Medications: Home Medications Medication Instructions Recorded Confirmed Last Taken Type Calcium Carbonate [Calcium Antacid] 300 mg PO TID 01/23/22 01/24/22 Unknown History Dolutegravir [Tivicay] 50 mg PO DAILY 01/23/22 01/24/22 Unknown History Sodium Bicarbonate 1,300 mg PO TID 01/23/22 01/24/22 Unknown History amLODIPine [Norvasc] 10 mg PO DAILY 01/23/22 01/24/22 Unknown History carvediloL [Coreg] 12.5 mg PO BID 01/23/22 01/24/22 Unknown History Abacavir Sulfate/Lamivudine 1 each PO QDAY 01/24/22 01/24/22 Unknown History [Abacavir-Lamivudine 600-300 mg] Active Medications: Generic Name Dose Route Start Last Admin Trade Name Freq PRN Reason Stop Dose Admin Acetaminophen 650 mg 01/19/22 22:50 01/22/22 05:08 Acetaminophen 325 Mg Tab PO 650 mg Q4H PRN Administration Pain MILD(1-3)/Fever >100.5/OSCAR Amlodipine Besylate 10 mg 01/20/22 10:00 01/23/22 09:47 Amlodipine 10 Mg Tab PO 10 mg QDAY JENNY Administration Calcium Acetate 667 mg 01/21/22 17:00 01/24/22 08:43 Calcium Acetate 667 Mg Cap PO 667 mg TIDWM JENNY Administration Carvedilol 25 mg 01/20/22 22:00 01/23/22 21:50 Carvedilol 25 Mg Tab PO Not Given BID JENNY Dextrose 50 ml 01/20/22 13:29 Dextrose 50% In Water (25gm) 50 Ml Syringe IV Q30MIN PRN Hypoglycemia Protocol Famotidine 20 mg 01/22/22 10:00 01/23/22 09:47 Famotidine 20 Mg Tab PO 20 mg QDAY JENNY Administration Hydralazine HCl 25 mg 01/23/22 22:00 01/24/22 05:00 Hydralazine 25 Mg Tab PO Not Given Q8HR JENNY Melatonin 5 mg 01/21/22 22:00 01/23/22 21:54 Melatonin 5 Mg Tab PO Not Given QHS JENNY Minoxidil 5 mg 01/21/22 11:00 01/23/22 21:51 Minoxidil 2.5 Mg Tab PO Not Given BID [facility] Morphine Sulfate 2 mg 01/19/22 22:50 01/22/22 22:04 Morphine 2 Mg/1 Ml Inj IV 2 mg Q4H PRN Administration Pain, Moderate (4-6) Ondansetron HCl 4 mg 01/19/22 22:50 01/22/22 15:58 Ondansetron 4 Mg/2 Ml Inj IV 4 mg Q8H PRN Administration Nausea And Vomiting Sodium Chloride 10 ml 01/20/22 10:00 01/23/22 21:54 Sodium Chloride 0.9% 10 Ml Flush Syringe IV 10 ml BID JENNY Administration Sodium Chloride 10 ml 01/19/22 22:50 01/22/22 06:39 Sodium Chloride 0.9% 10 Ml Flush Syringe IV 10 ml PRN PRN Administration LINE FLUSH
[2022-01-24] MEDS: amLODIPine 10 MG TAB PO SCH (09:41)
[2022-01-24] MEDS: MINOXIDIL 2.5 MG TAB PO SCH ×2 (09:41→22:54)
[2022-01-24] MEDS: carvediloL 25 MG TAB PO SCH ×2 (09:41→22:56)
[2022-01-24] MEDS: FAMOTIDINE 20 MG TAB PO SCH (09:42)
--- NOTE | 2022-01-24 10:23 | Progress Note ---
History Interval history: This is a 36-year-old male with known past medical history of HIV/AIDS, HTN, and possible medical noncompliance admitted for hypertensive emergency and acute on chronic renal failure #Hypertensive Emergency #Possible medical Noncompliance - Presented with SBP in the 200s, s/p Cardene gtt - Hypertensive this am, SBP back up in the 200s despite schedule meds and PRN Hydralazine - X1 dose of IV labetalol given, SBP improved in the 160s - Continue current antihypertensive regimen (Coreg and Amlodipine) - Minoxidil added for better BP control - Continue blood pressure monitor per protocol - PRN Hydralazine to maintain SBP less than 160 #Acute on Chronic Renal Failure #Hyponatremia - Presented with Scr. of 32.6 and Hyperkalemia - baseline renal function is unknown - Per patient, he was informed that he had renal insufficiency by PCP and needed to follow-up with skirt clipper but has been unable to due to insurance issues - s/p IV Bumex and Bcarb gtt, Scr. improved to 28.1 this am - Patient remains nonoliguric - Nephrology on consult, appreciated recommendation - Plan for possible iHD tomorrow per Nephro - Vascular Surgery consulted for permacath placement. NPO AMN tonight - Strict intake and output - Avoid nephrotoxic medications; Renally dose medications - Monitor and replace electrolytes as needed #Nausea/Vomiting #Abdominal Pain-resolved #Poor PO intake - Presented with N/V, gen. weakness and fatige, elevated amylase and lipase - CT abd/pelvis shows no acute process in the abdomen or pelvis urinary tract calculi or hydronephrosis. Pancreatitis ruled out - Currently on Clear liquid diet, still c/o of nausea but no vomiting, denied any abdominal pain - Advanced diet as tolerated - PRN antiemetic for N/V - PRN Analgesia for pain control - Trend LFts, amylase, and lipase #H/o HIV/AIDS - Per patient viral load is undetectable - Patient admits noncompliance with meds. - ART on hold for now in the setting of worsen DAWSON. Reassess prior to discharge #Hyperglycemia - Continue BG check and SSI ACHS - Avoid Hypoglycemia #GI/DVT Prophylaxis - PPI- Pepcid - SCDs to bilateral lower extremities while in bed Hospital course to date: 01/20: Patient has been weaned off nicardipine since afternoon and restarted home amlodipine and Coreg, increase in coreg and IV hydral ordered. Transfer to [facility]. COVID-19 PCR pending. Patient currently refusing hemodialysis when informed that he may need hemodialysis but the decision will be made by the skirt clipper. 01/21: Off cardene gtt since yesterday. Patient is hypertensive this am despite PRN IV Hydralazine. X1 dose IV labetall administered, SBP down in the 160s. Minoxidil added BID for better BP control. Renal function is unchanged, plan for iHD tomorrow per Nephro. Vascular Surgery consulted for permacath placement. NPO after midnight tonight for permacath placement. Plan of care discussed with patient at the bedside, all questions and concerns addressed at this time. D/W CCM patient is stable for transfer to the floor. 01/22: Blood pressure is much better controlled. IR to perform PermCath placement today. Nephrology to initiate hemodialysis after PermCath placement. CT of abdomen and pelvis revealing no hydronephrosis or obstructive uropathy. Patient has significant proteinuria on urine studies. Follow-up SPEP, serum free light chains, BLANCA, ANCA, Anti-GBM, C3, C4, Hep panel. D/C bicarb drip once start on hemodialysis. Continue to renally dose medications and avoid nephrotoxic agents. Strict I/O's daily 01/23: Patient is s/p PermCath placement for initiation of hemodialysis. Follow- up SPEP, serum free light chains, BLANCA, ANCA, Anti-GBM, C3, C4, Hep panel. Continue to renally dose medications and avoid nephrotoxic agents. Strict I/O's daily. Blood pressure remains better controlled. We will discuss with case management plans for outpatient hemodialysis chair 01/24: Nephrology reports patient with acute kidney injury superimposed on CKD v ersus progressive CKD or HIVAN. Patient with initiation of hemodialysis on 01/22. Follow-up SPEP, serum free light chains, BLANCA, ANCA, Anti-GBM, C3, C4. Hep panel was negative. Consented to HIV (DNA/RNA PCR) testing yesterday. Continue to renally dose medications and avoid nephrotoxic agents. Strict I/O's daily Hospitalist Physical - Constitutional Vitals: Temp Pulse Resp BP Pulse Ox 98.3 F 90 16 110/53 99 01/24/22 03:32 01/24/22 03:32 01/24/22 03:32 01/24/22 05:00 01/24/22 03:32 General appearance: Present: no acute distress, well-nourished Results - Labs CBC & Chem 7: 01/24/22 07:15 01/24/22 07:45 Labs: Laboratory Last Values WBC 10.9 K/mm3 (4.5-11.0) 01/24/22 07:15 RBC 2.49 M/mm3 (3.65-5.03) L 01/24/22 07:15 Hgb 7.3 gm/dl (11.8-15.2) L 01/24/22 07:15 Hct 21.4 % (35.5-45.6) L 01/24/22 07:15 MCV 86 fl (84-94) 01/24/22 07:15 MCH 29 pg (28-32) 01/24/22 07:15 MCHC 34 % (32-34) 01/24/22 07:15 RDW 14.7 % (13.2-15.2) 01/24/22 07:15 Plt Count 165 K/mm3 (140-440) 01/24/22 07:15 Lymph % (Auto) 21.8 % (13.4-35.0) 01/24/22 07:15 [place] % (Auto) 12.7 % (0.0-7.3) H 01/24/22 07:15 Eos % (Auto) 1.0 % (0.0-4.3) 01/24/22 07:15 Baso % (Auto) 0.4 % (0.0-1.8) 01/24/22 07:15 Lymph # (Auto) 2.4 K/mm3 (1.2-5.4) 01/24/22 07:15 [place] # (Auto) 1.4 K/mm3 (0.0-0.8) H 01/24/22 07:15 Eos # (Auto) 0.1 K/mm3 (0.0-0.4) 01/24/22 07:15 Baso # (Auto) 0.0 K/mm3 (0.0-0.1) 01/24/22 07:15 Add Manual Diff Complete 01/19/22 18:38 Total Counted 100 01/19/22 18:38 Seg Neutrophils % 64.1 % (40.0-70.0) 01/24/22 07:15 Seg Neuts % (Manual) 63.0 % (40.0-70.0) 01/19/22 18:38 Band Neutrophils % 0 % 01/19/22 18:38 Lymphocytes % (Manual) 33.0 % (13.4-35.0) 01/19/22 18:38 Reactive Lymphs % (Man) 0 % 01/19/22 18:38 Monocytes % (Manual) 1.0 % (0.0-7.3) 01/19/22 18:38 Eosinophils % (Manual) 2.0 % (0.0-4.3) 01/19/22 18:38 Basophils % (Manual) 1.0 % (0.0-1.8) 01/19/22 18:38 Metamyelocytes % 0 % 01/19/22 18:38 Myelocytes % 0 % 01/19/22 18:38 Promyelocytes % 0 % 01/19/22 18:38 Blast Cells % 0 % 01/19/22 18:38 Nucleated RBC % Not Reportable 01/19/22 18:38 Seg Neutrophils # 7.0 K/mm3 (1.8-7.7) 01/24/22 07:15 Seg Neutrophils # Man 4.5 K/mm3 (1.8-7.7) 01/19/22 18:38 Band Neutrophils # 0.0 K/mm3 01/19/22 18:38 Lymphocytes # (Manual) 2.4 K/mm3 (1.2-5.4) 01/19/22 18:38 Abs React Lymphs (Man) 0.0 K/mm3 01/19/22 18:38 Monocytes # (Manual) 0.1 K/mm3 (0.0-0.8) 01/19/22 18:38 Eosinophils # (Manual) 0.1 K/mm3 (0.0-0.4) 01/19/22 18:38 Basophils # (Manual) 0.1 K/mm3 (0.0-0.1) 01/19/22 18:38 Metamyelocytes # 0.0 K/mm3 01/19/22 18:38 Myelocytes # 0.0 K/mm3 01/19/22 18:38 Promyelocytes # 0.0 K/mm3 01/19/22 18:38 Blast Cells # 0.0 K/mm3 01/19/22 18:38 WBC Morphology Not Reportable 01/19/22 18:38 Hypersegmented Neuts Not Reportable 01/19/22 18:38 Hyposegmented Neuts Not Reportable 01/19/22 18:38 Hypogranular Neuts Not Reportable 01/19/22 18:38 Smudge Cells Not Reportable 01/19/22 18:38 Toxic Granulation Not Reportable 01/19/22 18:38 Toxic Vacuolation Not Reportable 01/19/22 18:38 Dohle Bodies Not Reportable 01/19/22 18:38 Pelger-Huet Anomaly Not Reportable 01/19/22 18:38 Kallie Rods Not Reportable 01/19/22 18:38 Platelet Estimate Consistent w auto 01/19/22 18:38 Clumped Platelets Not Reportable 01/19/22 18:38 Plt Clumps, EDTA Not Reportable 01/19/22 18:38 Large Platelets Not Reportable 01/19/22 18:38 Giant Platelets Not Reportable 01/19/22 18:38 Platelet Satelliting Not Reportable 01/19/22 18:38 Plt Morphology Comment Not Reportable 01/19/22 18:38 RBC Morphology Not Reportable 01/19/22 18:38 Dimorphic RBCs Not Reportable 01/19/22 18:38 Polychromasia Not Reportable 01/19/22 18:38 Hypochromasia Not Reportable 01/19/22 18:38 Poikilocytosis Not Reportable 01/19/22 18:38 Anisocytosis 1+ 01/19/22 18:38 Microcytosis Not Reportable 01/19/22 18:38 Macrocytosis Not Reportable 01/19/22 18:38 Spherocytes Not Reportable 01/19/22 18:38 Pappenheimer Bodies Not Reportable 01/19/22 18:38 Sickle Cells Not Reportable 01/19/22 18:38 Target Cells Not Reportable 01/19/22 18:38 Tear Drop Cells Not Reportable 01/19/22 18:38 Ovalocytes Not Reportable 01/19/22 18:38 Helmet Cells Not Reportable 01/19/22 18:38 Santamaria-Balfour Bodies Not Reportable 01/19/22 18:38 [place] Rings Not Reportable 01/19/22 18:38 Sonido Cells Not Reportable 01/19/22 18:38 Bite Cells Not Reportable 01/19/22 18:38 Crenated Cell Not Reportable 01/19/22 18:38 Elliptocytes Not Reportable 01/19/22 18:38 Acanthocytes (Spur) Not Reportable 01/19/22 18:38 Rouleaux Not Reportable 01/19/22 18:38 Hemoglobin C Crystals Not Reportable 01/19/22 18:38 Schistocytes Not Reportable 01/19/22 18:38 Malaria parasites Not Reportable 01/19/22 18:38 Edgardo Bodies Not Reportable 01/19/22 18:38 Hem Pathologist Commnt No 01/19/22 18:38 Sodium 138 mmol/L (137-145) 01/24/22 07:45 Potassium 3.9 mmol/L (3.6-5.0) 01/24/22 07:45 Chloride 96.4 mmol/L (98-107) L 01/24/22 07:45 Carbon Dioxide 29 mmol/L (22-30) 01/24/22 07:45 Anion Gap 17 mmol/L 01/24/22 07:45 BUN 44 mg/dL (9-20) H 01/24/22 07:45 Creatinine 10.0 mg/dL (0.8-1.3) H 01/24/22 07:45 Estimated GFR 7 ml/min 01/24/22 07:45 BUN/Creatinine Ratio 4 % 01/24/22 07:45 Glucose 98 mg/dL (75-100) 01/24/22 07:45 POC Glucose 142 mg/dL (70-105) H 01/21/22 11:41 Calcium 8.6 mg/dL (8.4-10.2) D 01/24/22 07:45 Phosphorus 13.20 mg/dL (2.5-4.5) H 01/22/22 04:49 Magnesium 2.10 mg/dL (1.7-2.3) 01/22/22 04:49 Iron 61 ug/dL (49-181) 01/23/22 05:53 TIBC 148 mcg/dL (250-450) L 01/23/22 05:53 Total Bilirubin 0.40 mg/dL (0.1-1.2) 01/22/22 04:49 AST 21 units/L (5-40) 01/22/22 04:49 ALT 23 units/L (7-56) 01/22/22 04:49 Alkaline Phosphatase 88 units/L (35-129) 01/22/22 04:49 Total Creatine Kinase 690 units/L (55-170) H 01/20/22 11:23 Total Protein 6.5 g/dL (6.3-8.2) D 01/22/22 04:49 Albumin 3.7 g/dL (3.9-5) L 01/22/22 04:49 Albumin/Globulin Ratio 1.3 % 01/22/22 04:49 Amylase 223 units/L (27-131) H 01/22/22 04:49 Lipase 164 units/L (13-60) H 01/22/22 04:49 PTH Intact 443.7 pg/mL (15-65) H 01/20/22 11:38 Urine Color Yellow (Yellow) 01/19/22 Unknown Urine Turbidity Slightly cloudy (Clear) 01/19/22 Unknown Urine pH 6.0 (5.0-7.0) 01/19/22 Unknown Ur Specific [place] 1.025 (1.003-1.030) 01/19/22 Unknown Urine Protein 100 mg/dl mg/dL (Negative) 01/19/22 Unknown Urine Glucose (UA) Negative mg/dL (Negative) 01/19/22 Unknown Urine Ketones Negative mg/dL (Negative) 01/19/22 Unknown Urine Blood Trace (Negative) 01/19/22 Unknown Urine Nitrite Negative (Negative) 01/19/22 Unknown Ur Reducing Substances Not Reportable 01/19/22 Unknown Urine Bilirubin Negative (Negative) 01/19/22 Unknown Urine Ictotest Not Reportable 01/19/22 Unknown Urine Urobilinogen 2.0 mg/dL (<2.0) 01/19/22 Unknown Ur Leukocyte Esterase Negative (Negative) 01/19/22 Unknown Urine WBC (Auto) 4.0 /HPF (0.0-6.0) 01/19/22 Unknown Urine RBC (Auto) 2.0 /HPF (0.0-6.0) 01/19/22 Unknown U Epithel Cells (Auto) 2.0 /HPF (0-13.0) 01/19/22 Unknown Urine Bacteria (Auto) 1+ /HPF (Negative) 01/19/22 Unknown Urine Eosinophils None seen (None Seen) 01/20/22 15:30 Urine Creatinine 64.2 mg/dL (0.1-20.0) H 01/20/22 15:30 Protein/Creatinin Ratio 3.60 01/20/22 15:30 Urine Sodium 83 mmol/L 01/20/22 15:30 Urine Total Protein 231 mg/dL (5-11.8) H 01/20/22 15:30 Coronavirus (PCR) Negative (Negative) 01/20/22 05:28 Hepatitis A IgM Ab Non-reactive (NonReactive) 01/21/22 04:51 Hep Bs Antigen Non-reactive (Negative) 01/21/22 04:51 Hep B Core IgM Ab Non-reactive (NonReactive) 01/21/22 04:51 Hepatitis C Antibody Non-reactive (NonReactive) 01/21/22 04:51 Kiran/IV: Voiding Method Toilet Active Medications - Current Medications Current Medications: Generic Name Dose Route Start Last Admin Trade Name Freq PRN Reason Stop Dose Admin Acetaminophen 650 mg 01/19/22 22:50 01/22/22 05:08 Acetaminophen 325 Mg Tab PO 650 mg Q4H PRN Administration Pain MILD(1-3)/Fever >100.5/OSCAR Amlodipine Besylate 10 mg 01/20/22 10:00 01/24/22 09:41 Amlodipine 10 Mg Tab PO Not Given QDAY JENNY Calcium Acetate 667 mg 01/21/22 17:00 01/24/22 08:43 Calcium Acetate 667 Mg Cap PO 667 mg TIDWM JENNY Administration Carvedilol 25 mg 01/20/22 22:00 01/24/22 09:41 Carvedilol 25 Mg Tab PO Not Given BID JENNY Dextrose 50 ml 01/20/22 13:29 Dextrose 50% In Water (25gm) 50 Ml Syringe IV Q30MIN PRN Hypoglycemia Protocol Famotidine 20 mg 01/22/22 10:00 01/24/22 09:42 Famotidine 20 Mg Tab PO 20 mg QDAY JENNY Administration Hydralazine HCl 25 mg 01/23/22 22:00 01/24/22 05:00 Hydralazine 25 Mg Tab PO Not Given Q8HR JENNY Melatonin 5 mg 01/21/22 22:00 01/23/22 21:54 Melatonin 5 Mg Tab PO Not Given QHS JENNY Minoxidil 5 mg 01/21/22 11:00 01/24/22 09:41 Minoxidil 2.5 Mg Tab PO Not Given BID [facility] Morphine Sulfate 2 mg 01/19/22 22:50 01/22/22 22:04 Morphine 2 Mg/1 Ml Inj IV 2 mg Q4H PRN Administration Pain, Moderate (4-6) Ondansetron HCl 4 mg 01/19/22 22:50 01/22/22 15:58 Ondansetron 4 Mg/2 Ml Inj IV 4 mg Q8H PRN Administration Nausea And Vomiting Sodium Chloride 10 ml 01/20/22 10:00 01/24/22 09:42 Sodium Chloride 0.9% 10 Ml Flush Syringe IV 10 ml BID JENNY Administration Sodium Chloride 10 ml 01/19/22 22:50 01/22/22 06:39 Sodium Chloride 0.9% 10 Ml Flush Syringe IV 10 ml PRN PRN Administration LINE FLUSH
[2022-01-24] MEDS: MELATONIN 5 MG TAB PO SCH (22:56)
[2022-01-25] MEDS: hydrALAZINE 25 MG TAB PO SCH ×3 (07:01→23:55)
[2022-01-25] MEDS: CALCIUM ACETATE 667 MG CAP PO SCH ×3 (08:13→17:08)
[2022-01-25 08:50] LABS: Hematocrit 20.9 % (35.5-45.6); Hemoglobin 6.9 gm/dl (11.8-15.2); Mean Corpuscular HGB Conc 33 % (32-34); Mean Corpuscular Volume 86 fl (84-94); Platelet Count 215 K/mm3 (140-440); Red Blood Count 2.43 M/mm3 (3.65-5.03); Red Cell Distribution Width 14.6 % (13.2-15.2)
[2022-01-25 09:10] LABS: Calcium 7.1 mg/dL (8.4-10.2)
--- NOTE | 2022-01-25 09:12 | Progress Note ---
Assessment and Plan Acute Kidney injury on top of CKD vs Progressive CKD, Could have HIVAN, requring dialysis initiation: S/P Hyperkalemia: Metabolic acidosis: HIV: Hypertension: Nausea and vomitinHPT from CKD: Hyperphosphatemia Plan: - HD today for clearance only, making urine, labs are pending -S/P perm-catheter placement and first hemodialysis session on 01/22/22 -CT of Abdomen and Pelvis-No hydronephrosis -Urine studies reviewed, has proteinuria. -SPEP, serum free light chains, BLANCA, ANCA, Anti-GBM, C3, C4-pending -Hep panel- negative. Consented to HIV (DNA/RNA PCR) testing today. -HIV meds on hold due to severe renal failure -Hyperphosphatemia-on Phoslo 667 mg po TID with meals -Renally dose all medications -Avoid Nephrotoxic agents -PTH high signalling 2HPT from CKD -Strict I/O's daily -Obtain daily weights -Monitor renal function closely -Assess dialysis needs daily Subjective Date of service: 01/25/22 Principal diagnosis: Severe renal failure Interval history: no distress, making urine Objective - Vital Signs Vital signs: Vital Signs - 12hr 01/24/22 01/24/22 01/24/22 22:00 22:06 22:55 Temperature 99.3 F Pulse Rate 85 85 Respiratory 20 16 Rate Blood Pressure 122/63 122/63 O2 Sat by Pulse 100 99 Oximetry 01/24/22 01/25/22 01/25/22 22:56 05:23 08:13 Temperature 99.4 F Pulse Rate 85 80 Respiratory 16 Rate Blood Pressure 122/63 104/48 O2 Sat by Pulse 100 98 Oximetry - Lab 01/24/22 07:15 01/25/22 08:35 Most recent lab results Calcium 8.6 mg/dL (8.4-10.2) D 01/24/22 07:45 Phosphorus 13.20 mg/dL (2.5-4.5) H 01/22/22 04:49 Magnesium 2.10 mg/dL (1.7-2.3) 01/22/22 04:49 Urine Creatinine 64.2 mg/dL (0.1-20.0) H 01/20/22 15:30 Urine Sodium 83 mmol/L 01/20/22 15:30 Urine Total Protein 231 mg/dL (5-11.8) H 01/20/22 15:30 Medications & Allergies - Medications Allergies/Adverse Reactions: Allergies No Known Allergies Allergy (Verified 01/24/22 08:49) Home Medications: Home Medications Medication Instructions Recorded Confirmed Last Taken Type Calcium Carbonate [Calcium Antacid] 300 mg PO TID 01/23/22 01/24/22 Unknown History Dolutegravir [Tivicay] 50 mg PO DAILY 01/23/22 01/24/22 Unknown History Sodium Bicarbonate 1,300 mg PO TID 01/23/22 01/24/22 Unknown History amLODIPine [Norvasc] 10 mg PO DAILY 01/23/22 01/24/22 Unknown History carvediloL [Coreg] 12.5 mg PO BID 01/23/22 01/24/22 Unknown History Abacavir Sulfate/Lamivudine 1 each PO QDAY 01/24/22 01/24/22 Unknown History [Abacavir-Lamivudine 600-300 mg] Active Medications: Generic Name Dose Route Start Last Admin Trade Name Freq PRN Reason Stop Dose Admin Acetaminophen 650 mg 01/19/22 22:50 01/22/22 05:08 Acetaminophen 325 Mg Tab PO 650 mg Q4H PRN Administration Pain MILD(1-3)/Fever >100.5/OSCAR Amlodipine Besylate 10 mg 01/20/22 10:00 01/24/22 09:41 Amlodipine 10 Mg Tab PO Not Given QDAY JENNY Calcium Acetate 667 mg 01/21/22 17:00 01/25/22 08:13 Calcium Acetate 667 Mg Cap PO 667 mg TIDWM JENNY Administration Carvedilol 25 mg 01/20/22 22:00 01/24/22 22:56 Carvedilol 25 Mg Tab PO 25 mg BID JENNY Administration Dextrose 50 ml 01/20/22 13:29 Dextrose 50% In Water (25gm) 50 Ml Syringe IV Q30MIN PRN Hypoglycemia Protocol Famotidine 20 mg 01/22/22 10:00 01/24/22 09:42 Famotidine 20 Mg Tab PO 20 mg QDAY JENNY Administration Hydralazine HCl 25 mg 01/23/22 22:00 01/25/22 07:01 Hydralazine 25 Mg Tab PO Not Given Q8HR JENNY Melatonin 5 mg 01/21/22 22:00 01/24/22 22:56 Melatonin 5 Mg Tab PO 5 mg QHS JENNY Administration Minoxidil 5 mg 01/21/22 11:00 01/24/22 22:54 Minoxidil 2.5 Mg Tab PO 5 mg BID JENNY Administration Morphine Sulfate 2 mg 01/19/22 22:50 01/22/22 22:04 Morphine 2 Mg/1 Ml Inj IV 2 mg Q4H PRN Administration Pain, Moderate (4-6) Ondansetron HCl 4 mg 01/19/22 22:50 01/22/22 15:58 Ondansetron 4 Mg/2 Ml Inj IV 4 mg Q8H PRN Administration Nausea And Vomiting Sodium Chloride 10 ml 01/20/22 10:00 01/24/22 22:55 Sodium Chloride 0.9% 10 Ml Flush Syringe IV 10 ml BID JENNY Administration Sodium Chloride 10 ml 01/19/22 22:50 01/22/22 06:39 Sodium Chloride 0.9% 10 Ml Flush Syringe IV 10 ml PRN PRN Administration LINE FLUSH
[2022-01-25] MEDS ORDERED: SODIUM CHLORIDE 0.9% 500 ML 500 ML IV NR (09:38)
--- NOTE | 2022-01-25 09:39 | Progress Note ---
History Interval history: This is a 36-year-old male with known past medical history of HIV/AIDS, HTN, and possible medical noncompliance admitted for hypertensive emergency and acute on chronic renal failure #Hypertensive Emergency #Possible medical Noncompliance - Presented with SBP in the 200s, s/p Cardene gtt - Hypertensive this am, SBP back up in the 200s despite schedule meds and PRN Hydralazine - X1 dose of IV labetalol given, SBP improved in the 160s - Continue current antihypertensive regimen (Coreg and Amlodipine) - Minoxidil added for better BP control - Continue blood pressure monitor per protocol - PRN Hydralazine to maintain SBP less than 160 #Acute on Chronic Renal Failure #Hyponatremia - Presented with Scr. of 32.6 and Hyperkalemia - baseline renal function is unknown - Per patient, he was informed that he had renal insufficiency by PCP and needed to follow-up with cash office worker but has been unable to due to insurance issues - s/p IV Bumex and Bcarb gtt, - Patient remains nonoliguric - Nephrology on consult, appreciated recommendation - Strict intake and output - Avoid nephrotoxic medications; Renally dose medications - Monitor and replace electrolytes as needed #Nausea/Vomiting #Abdominal Pain-resolved #Poor PO intake - Presented with N/V, gen. weakness and fatige, elevated amylase and lipase - CT abd/pelvis shows no acute process in the abdomen or pelvis urinary tract calculi or hydronephrosis. Pancreatitis ruled out - PRN antiemetic for N/V - PRN Analgesia for pain control - Trend LFts, amylase, and lipase #H/o HIV/AIDS - Per patient viral load is undetectable - Patient admits noncompliance with meds. - ART on hold for now in the setting of worsen DAWSON. Reassess prior to discharge #Hyperglycemia - Continue BG check and SSI ACHS - Avoid Hypoglycemia #GI/DVT Prophylaxis - PPI- Pepcid - SCDs to bilateral lower extremities while in bed Hospital course to date: 01/20: Patient has been weaned off nicardipine since afternoon and restarted home amlodipine and Coreg, increase in coreg and IV hydral ordered. Transfer to [facility]. COVID-19 PCR pending. Patient currently refusing hemodialysis when informed that he may need hemodialysis but the decision will be made by the cash office worker. 01/21: Off cardene gtt since yesterday. Patient is hypertensive this am despite PRN IV Hydralazine. X1 dose IV labetall administered, SBP down in the 160s. Minoxidil added BID for better BP control. Renal function is unchanged, plan for iHD tomorrow per Nephro. Vascular Surgery consulted for permacath placement. NPO after midnight tonight for permacath placement. Plan of care discussed with patient at the bedside, all questions and concerns addressed at this time. D/W CCM patient is stable for transfer to the floor. 01/22: Blood pressure is much better controlled. IR to perform PermCath placement today. Nephrology to initiate hemodialysis after PermCath placement. CT of abdomen and pelvis revealing no hydronephrosis or obstructive uropathy. Patient has significant proteinuria on urine studies. Follow-up SPEP, serum free light chains, BLANCA, ANCA, Anti-GBM, C3, C4, Hep panel. D/C bicarb drip once start on hemodialysis. Continue to renally dose medications and avoid nephrotoxic agents. Strict I/O's daily 01/23: Patient is s/p PermCath placement for initiation of hemodialysis. Follow- up SPEP, serum free light chains, BLANCA, ANCA, Anti-GBM, C3, C4, Hep panel. Continue to renally dose medications and avoid nephrotoxic agents. Strict I/O's daily. Blood pressure remains better controlled. We will discuss with case management plans for outpatient hemodialysis chair 01/24: Nephrology reports patient with acute kidney injury superimposed on CKD versus progressive CKD or HIVAN. Patient with initiation of hemodialysis on 01/22. Follow-up SPEP, serum free light chains, BLANCA, ANCA, Anti-GBM, C3, C4. Hep panel was negative. Consented to HIV (DNA/RNA PCR) testing yesterday. Continue to renally dose medications and avoid nephrotoxic agents. Strict I/O's daily 01/25: Continue hemodialysis per nephrology recommendations. Follow-up SPEP, serum free light chains, BLANCA, ANCA, Anti-GBM, C3, C4. Continue to renally dose medications and avoid nephrotoxic agents. Strict I/O's daily. HIV meds on hold due to severe renal failure. Type and cross and transfuse 1 unit PRBCs for anemia Hospitalist Physical - Constitutional Vitals: Temp Pulse Resp BP Pulse Ox 99.4 F 80 16 104/48 98 01/25/22 05:23 01/25/22 05:23 01/25/22 05:23 01/25/22 05:23 01/25/22 08:13 General appearance: Present: no acute distress, well-nourished Results - Labs CBC & Chem 7: 01/25/22 08:35 01/25/22 08:35 Labs: Laboratory Last Values WBC 11.4 K/mm3 (4.5-11.0) H 01/25/22 08:35 RBC 2.43 M/mm3 (3.65-5.03) L 01/25/22 08:35 Hgb 6.9 gm/dl (11.8-15.2) L 01/25/22 08:35 Hct 20.9 % (35.5-45.6) L 01/25/22 08:35 MCV 86 fl (84-94) 01/25/22 08:35 MCH 28 pg (28-32) 01/25/22 08:35 MCHC 33 % (32-34) 01/25/22 08:35 RDW 14.6 % (13.2-15.2) 01/25/22 08:35 Plt Count 215 K/mm3 (140-440) 01/25/22 08:35 Lymph % (Auto) 21.8 % (13.4-35.0) 01/24/22 07:15 [place] % (Auto) 12.7 % (0.0-7.3) H 01/24/22 07:15 Eos % (Auto) 1.0 % (0.0-4.3) 01/24/22 07:15 Baso % (Auto) 0.4 % (0.0-1.8) 01/24/22 07:15 Lymph # (Auto) 2.4 K/mm3 (1.2-5.4) 01/24/22 07:15 [place]ell # (Auto) 1.4 K/mm3 (0.0-0.8) H 01/24/22 07:15 Eos # (Auto) 0.1 K/mm3 (0.0-0.4) 01/24/22 07:15 Baso # (Auto) 0.0 K/mm3 (0.0-0.1) 01/24/22 07:15 Add Manual Diff Complete 01/19/22 18:38 Total Counted 100 01/19/22 18:38 Seg Neutrophils % 64.1 % (40.0-70.0) 01/24/22 07:15 Seg Neuts % (Manual) 63.0 % (40.0-70.0) 01/19/22 18:38 Band Neutrophils % 0 % 01/19/22 18:38 Lymphocytes % (Manual) 33.0 % (13.4-35.0) 01/19/22 18:38 Reactive Lymphs % (Man) 0 % 01/19/22 18:38 Monocytes % (Manual) 1.0 % (0.0-7.3) 01/19/22 18:38 Eosinophils % (Manual) 2.0 % (0.0-4.3) 01/19/22 18:38 Basophils % (Manual) 1.0 % (0.0-1.8) 01/19/22 18:38 Metamyelocytes % 0 % 01/19/22 18:38 Myelocytes % 0 % 01/19/22 18:38 Promyelocytes % 0 % 01/19/22 18:38 Blast Cells % 0 % 01/19/22 18:38 Nucleated RBC % Not Reportable 01/19/22 18:38 Seg Neutrophils # 7.0 K/mm3 (1.8-7.7) 01/24/22 07:15 Seg Neutrophils # Man 4.5 K/mm3 (1.8-7.7) 01/19/22 18:38 Band Neutrophils # 0.0 K/mm3 01/19/22 18:38 Lymphocytes # (Manual) 2.4 K/mm3 (1.2-5.4) 01/19/22 18:38 Abs React Lymphs (Man) 0.0 K/mm3 01/19/22 18:38 Monocytes # (Manual) 0.1 K/mm3 (0.0-0.8) 01/19/22 18:38 Eosinophils # (Manual) 0.1 K/mm3 (0.0-0.4) 01/19/22 18:38 Basophils # (Manual) 0.1 K/mm3 (0.0-0.1) 01/19/22 18:38 Metamyelocytes # 0.0 K/mm3 01/19/22 18:38 Myelocytes # 0.0 K/mm3 01/19/22 18:38 Promyelocytes # 0.0 K/mm3 01/19/22 18:38 Blast Cells # 0.0 K/mm3 01/19/22 18:38 WBC Morphology Not Reportable 01/19/22 18:38 Hypersegmented Neuts Not Reportable 01/19/22 18:38 Hyposegmented Neuts Not Reportable 01/19/22 18:38 Hypogranular Neuts Not Reportable 01/19/22 18:38 Smudge Cells Not Reportable 01/19/22 18:38 Toxic Granulation Not Reportable 01/19/22 18:38 Toxic Vacuolation Not Reportable 01/19/22 18:38 Dohle Bodies Not Reportable 01/19/22 18:38 Pelger-Huet Anomaly Not Reportable 01/19/22 18:38 Kallie Rods Not Reportable 01/19/22 18:38 Platelet Estimate Consistent w auto 01/19/22 18:38 Clumped Platelets Not Reportable 01/19/22 18:38 Plt Clumps, EDTA Not Reportable 01/19/22 18:38 Large Platelets Not Reportable 01/19/22 18:38 Giant Platelets Not Reportable 01/19/22 18:38 Platelet Satelliting Not Reportable 01/19/22 18:38 Plt Morphology Comment Not Reportable 01/19/22 18:38 RBC Morphology Not Reportable 01/19/22 18:38 Dimorphic RBCs Not Reportable 01/19/22 18:38 Polychromasia Not Reportable 01/19/22 18:38 Hypochromasia Not Reportable 01/19/22 18:38 Poikilocytosis Not Reportable 01/19/22 18:38 Anisocytosis 1+ 01/19/22 18:38 Microcytosis Not Reportable 01/19/22 18:38 Macrocytosis Not Reportable 01/19/22 18:38 Spherocytes Not Reportable 01/19/22 18:38 Pappenheimer Bodies Not Reportable 01/19/22 18:38 Sickle Cells Not Reportable 01/19/22 18:38 Target Cells Not Reportable 01/19/22 18:38 Tear Drop Cells Not Reportable 01/19/22 18:38 Ovalocytes Not Reportable 01/19/22 18:38 Helmet Cells Not Reportable 01/19/22 18:38 Santamaria-[place] Bodies Not Reportable 01/19/22 18:38 Waldron Rings Not Reportable 01/19/22 18:38 Sonido Cells Not Reportable 01/19/22 18:38 Bite Cells Not Reportable 01/19/22 18:38 Crenated Cell Not Reportable 01/19/22 18:38 Elliptocytes Not Reportable 01/19/22 18:38 Acanthocytes (Spur) Not Reportable 01/19/22 18:38 Rouleaux Not Reportable 01/19/22 18:38 Hemoglobin C Crystals Not Reportable 01/19/22 18:38 Schistocytes Not Reportable 01/19/22 18:38 Malaria parasites Not Reportable 01/19/22 18:38 Edgardo Bodies Not Reportable 01/19/22 18:38 Hem Pathologist Commnt No 01/19/22 18:38 Sodium 132 mmol/L (137-145) L 01/25/22 08:35 Potassium 3.7 mmol/L (3.6-5.0) 01/25/22 08:35 Chloride 92.4 mmol/L (98-107) L 01/25/22 08:35 Carbon Dioxide 27 mmol/L (22-30) 01/25/22 08:35 Anion Gap 16 mmol/L 01/25/22 08:35 BUN 54 mg/dL (9-20) H 01/25/22 08:35 Creatinine 12.6 mg/dL (0.8-1.3) H 01/25/22 08:35 Estimated GFR 6 ml/min 01/25/22 08:35 BUN/Creatinine Ratio 4 % 01/25/22 08:35 Glucose 131 mg/dL (75-100) H 01/25/22 08:35 POC Glucose 142 mg/dL (70-105) H 01/21/22 11:41 Calcium 7.1 mg/dL (8.4-10.2) L D 01/25/22 08:35 Phosphorus 13.20 mg/dL (2.5-4.5) H 01/22/22 04:49 Magnesium 2.10 mg/dL (1.7-2.3) 01/22/22 04:49 Iron 61 ug/dL (49-181) 01/23/22 05:53 TIBC 148 mcg/dL (250-450) L 01/23/22 05:53 Total Bilirubin 0.40 mg/dL (0.1-1.2) 01/22/22 04:49 AST 21 units/L (5-40) 01/22/22 04:49 ALT 23 units/L (7-56) 01/22/22 04:49 Alkaline Phosphatase 88 units/L (35-129) 01/22/22 04:49 Total Creatine Kinase 690 units/L (55-170) H 01/20/22 11:23 Total Protein 6.5 g/dL (6.3-8.2) D 01/22/22 04:49 Albumin 3.7 g/dL (3.9-5) L 01/22/22 04:49 Albumin/Globulin Ratio 1.3 % 01/22/22 04:49 Amylase 223 units/L (27-131) H 01/22/22 04:49 Lipase 164 units/L (13-60) H 01/22/22 04:49 PTH Intact 443.7 pg/mL (15-65) H 01/20/22 11:38 Urine Color Yellow (Yellow) 01/19/22 Unknown Urine Turbidity Slightly cloudy (Clear) 01/19/22 Unknown Urine pH 6.0 (5.0-7.0) 01/19/22 Unknown Ur Specific Protection 1.025 (1.003-1.030) 01/19/22 Unknown Urine Protein 100 mg/dl mg/dL (Negative) 01/19/22 Unknown Urine Glucose (UA) Negative mg/dL (Negative) 01/19/22 Unknown Urine Ketones Negative mg/dL (Negative) 01/19/22 Unknown Urine Blood Trace (Negative) 01/19/22 Unknown Urine Nitrite Negative (Negative) 01/19/22 Unknown Ur Reducing Substances Not Reportable 01/19/22 Unknown Urine Bilirubin Negative (Negative) 01/19/22 Unknown Urine Ictotest Not Reportable 01/19/22 Unknown Urine Urobilinogen 2.0 mg/dL (<2.0) 01/19/22 Unknown Ur Leukocyte Esterase Negative (Negative) 01/19/22 Unknown Urine WBC (Auto) 4.0 /HPF (0.0-6.0) 01/19/22 Unknown Urine RBC (Auto) 2.0 /HPF (0.0-6.0) 01/19/22 Unknown U Epithel Cells (Auto) 2.0 /HPF (0-13.0) 01/19/22 Unknown Urine Bacteria (Auto) 1+ /HPF (Negative) 01/19/22 Unknown Urine Eosinophils None seen (None Seen) 01/20/22 15:30 Urine Creatinine 64.2 mg/dL (0.1-20.0) H 01/20/22 15:30 Protein/Creatinin Ratio 3.60 01/20/22 15:30 Urine Sodium 83 mmol/L 01/20/22 15:30 Urine Total Protein 231 mg/dL (5-11.8) H 01/20/22 15:30 Coronavirus (PCR) Negative (Negative) 01/20/22 05:28 Hepatitis A IgM Ab Non-reactive (NonReactive) 01/21/22 04:51 Hep Bs Antigen Non-reactive (Negative) 01/21/22 04:51 Hep B Core IgM Ab Non-reactive (NonReactive) 01/21/22 04:51 Hepatitis C Antibody Non-reactive (NonReactive) 01/21/22 04:51 Kiran/IV: Voiding Method Toilet Active Medications - Current Medications Current Medications: Generic Name Dose Route Start Last Admin Trade Name Freq PRN Reason Stop Dose Admin Acetaminophen 650 mg 01/19/22 22:50 01/22/22 05:08 Acetaminophen 325 Mg Tab PO 650 mg Q4H PRN Administration Pain MILD(1-3)/Fever >100.5/OSCAR Amlodipine Besylate 10 mg 01/20/22 10:00 01/24/22 09:41 Amlodipine 10 Mg Tab PO Not Given QDAY JENNY Calcium Acetate 667 mg 01/21/22 17:00 01/25/22 08:13 Calcium Acetate 667 Mg Cap PO 667 mg TIDWM JENNY Administration Carvedilol 25 mg 01/20/22 22:00 01/24/22 22:56 Carvedilol 25 Mg Tab PO 25 mg BID JENNY Administration Dextrose 50 ml 01/20/22 13:29 Dextrose 50% In Water (25gm) 50 Ml Syringe IV Q30MIN PRN Hypoglycemia Protocol Famotidine 20 mg 01/22/22 10:00 01/24/22 09:42 Famotidine 20 Mg Tab PO 20 mg QDAY JENNY Administration Hydralazine HCl 25 mg 01/23/22 22:00 01/25/22 07:01 Hydralazine 25 Mg Tab PO Not Given Q8HR JENNY Melatonin 5 mg 01/21/22 22:00 01/24/22 22:56 Melatonin 5 Mg Tab PO 5 mg QHS JENNY Administration Minoxidil 5 mg 01/21/22 11:00 01/24/22 22:54 Minoxidil 2.5 Mg Tab PO 5 mg BID JENNY Administration Morphine Sulfate 2 mg 01/19/22 22:50 01/22/22 22:04 Morphine 2 Mg/1 Ml Inj IV 2 mg Q4H PRN Administration Pain, Moderate (4-6) Ondansetron HCl 4 mg 01/19/22 22:50 01/22/22 15:58 Ondansetron 4 Mg/2 Ml Inj IV 4 mg Q8H PRN Administration Nausea And Vomiting Sodium Chloride 10 ml 01/20/22 10:00 01/24/22 22:55 Sodium Chloride 0.9% 10 Ml Flush Syringe IV 10 ml BID JENNY Administration Sodium Chloride 10 ml 01/19/22 22:50 01/22/22 06:39 Sodium Chloride 0.9% 10 Ml Flush Syringe IV 10 ml PRN PRN Administration LINE FLUSH
[2022-01-25] MEDS: carvediloL 25 MG TAB PO SCH ×2 (10:10→23:56)
[2022-01-25] MEDS: amLODIPine 10 MG TAB PO SCH (10:10)
[2022-01-25] MEDS: MINOXIDIL 2.5 MG TAB PO SCH ×2 (10:11→23:55)
[2022-01-25] MEDS: FAMOTIDINE 20 MG TAB PO SCH (12:11)
[2022-01-25] MEDS: MELATONIN 5 MG TAB PO SCH (23:56)
[2022-01-26] MEDS: ACETAMINOPHEN 325 MG TAB PO PRN (04:07)
[2022-01-26] MEDS ORDERED: SODIUM CHLORIDE 0.9% 250ML 250 ML ONE (04:22)
[2022-01-26] MEDS: hydrALAZINE 25 MG TAB PO SCH ×3 (05:34→21:38)
--- NOTE | 2022-01-26 07:55 | Progress Note ---
Assessment and Plan Acute Kidney injury on top of CKD vs Progressive CKD, Could have HIVAN, now on dialysis Hyperkalemia: Metabolic acidosis: HIV: Hypertension: Nausea and vomiting: Secondary Hyperparathyroidism from CKD: Hyperphosphatemia Plan: -Labs pending today -S/p HD yesterday for clearance only -No acute indication for HD today at this time, labs pending -Assess need for HD on daily basis -S/p perm catheter placement and first hemodialysis session on 01/22/22 -CT of Abdomen and Pelvis w/o contrast on 01/19/22 showed No hydronephrosis -Urine studies reviewed, calculated protein to cr ratio 3.6 g, nephrotic range proteinuria, no urine eosinophils -Obtain SPEP, serum free light chains, BLANCA, ANCA, Anti-GBM, C3, C4 -So far Hepatitis panel, C3, C4 -> negative. Consented to HIV (DNA/RNA PCR) testing -HIV meds on hold due to severe renal failure -On Phoslo 667 mg po TID with meals -Renally dose all medications -PTH level was high suggestive of secondary hyperparathyroidism from CKD -Strict I/O's daily -Intake= 2040 ml Output= 1200 ml (Net= 840 ml) -Renal plan reviewed by Dr Rodriguez Subjective Date of service: 01/26/22 Principal diagnosis: Severe renal failure Interval history: Pt seen in bed resting, states he is tired, denies shortness of breath, nausea, vomiting, or pain. RN states pt s/p blood transfusion this morning. No acute distress, no family at bedside Objective - Vital Signs Vital signs: Vital Signs - 12hr 01/25/22 01/25/22 01/25/22 22:00 23:52 23:55 Temperature 98.7 F Pulse Rate 109 H 109 H Respiratory 18 18 Rate Blood Pressure 125/68 Blood Pressure 125/68 [Left] O2 Sat by Pulse 100 100 Oximetry 01/25/22 01/26/22 01/26/22 23:56 04:36 04:46 Temperature 99 F 98.8 F Pulse Rate 109 H 83 87 Respiratory 17 17 Rate Blood Pressure 125/68 100/50 100/50 Blood Pressure [Left] O2 Sat by Pulse 100 99 Oximetry 01/26/22 01/26/22 01/26/22 05:01 05:31 05:34 Temperature 98.6 F 98.5 F Pulse Rate 86 86 86 Respiratory 17 16 Rate Blood Pressure 100/49 105/50 100/50 Blood Pressure [Left] O2 Sat by Pulse 99 100 Oximetry 01/26/22 06:01 Temperature 98.3 F Pulse Rate 86 Respiratory 16 Rate Blood Pressure 100/48 Blood Pressure [Left] O2 Sat by Pulse 100 Oximetry - General Appearance General appearance: fatigue EENT: ATNC Neck: no JVD Respiratory: Present: Decreased Breath Sounds Cardiology: regular, S1S2, other (ACCESS: Right IJ Perm Catheter intact) Gastrointestinal: normoactive bowel sounds, no tenderness Integumentary: warm and dry Neurologic: alert and oriented x3 Musculoskeletal: other (trace edema to BLE) - Lab 01/25/22 08:35 01/25/22 08:35 Most recent lab results Calcium 7.1 mg/dL (8.4-10.2) L D 01/25/22 08:35 Phosphorus 13.20 mg/dL (2.5-4.5) H 01/22/22 04:49 Magnesium 2.10 mg/dL (1.7-2.3) 01/22/22 04:49 Urine Creatinine 64.2 mg/dL (0.1-20.0) H 01/20/22 15:30 Urine Sodium 83 mmol/L 01/20/22 15:30 Urine Total Protein 231 mg/dL (5-11.8) H 01/20/22 15:30 Medications & Allergies - Medications Allergies/Adverse Reactions: Allergies No Known Allergies Allergy (Verified 01/24/22 08:49) Home Medications: Home Medications Medication Instructions Recorded Confirmed Last Taken Type Calcium Carbonate [Calcium Antacid] 300 mg PO TID 01/23/22 01/24/22 Unknown History Dolutegravir [Tivicay] 50 mg PO DAILY 01/23/22 01/24/22 Unknown History Sodium Bicarbonate 1,300 mg PO TID 01/23/22 01/24/22 Unknown History amLODIPine [Norvasc] 10 mg PO DAILY 01/23/22 01/24/22 Unknown History carvediloL [Coreg] 12.5 mg PO BID 01/23/22 01/24/22 Unknown History Abacavir Sulfate/Lamivudine 1 each PO QDAY 01/24/22 01/24/22 Unknown History [Abacavir-Lamivudine 600-300 mg] Active Medications: Generic Name Dose Route Start Last Admin Trade Name Freq PRN Reason Stop Dose Admin Acetaminophen 650 mg 01/19/22 22:50 01/26/22 04:07 Acetaminophen 325 Mg Tab PO 650 mg Q4H PRN Administration Pain MILD(1-3)/Fever >100.5/OSCAR Amlodipine Besylate 10 mg 01/20/22 10:00 01/25/22 10:10 Amlodipine 10 Mg Tab PO Not Given QDAY JENNY Calcium Acetate 667 mg 01/21/22 17:00 01/25/22 17:08 Calcium Acetate 667 Mg Cap PO 667 mg TIDWM JENNY Administration Carvedilol 25 mg 01/20/22 22:00 01/25/22 23:56 Carvedilol 25 Mg Tab PO 25 mg BID JENNY Administration Dextrose 50 ml 01/20/22 13:29 Dextrose 50% In Water (25gm) 50 Ml Syringe IV Q30MIN PRN Hypoglycemia Protocol Famotidine 20 mg 01/22/22 10:00 01/25/22 12:11 Famotidine 20 Mg Tab PO 20 mg QDAY JENNY Administration Hydralazine HCl 25 mg 01/23/22 22:00 01/26/22 05:34 Hydralazine 25 Mg Tab PO Not Given Q8HR JENNY Melatonin 5 mg 01/21/22 22:00 01/25/22 23:56 Melatonin 5 Mg Tab PO 5 mg QHS JENNY Administration Minoxidil 5 mg 01/21/22 11:00 01/25/22 23:55 Minoxidil 2.5 Mg Tab PO 5 mg BID JENNY Administration Morphine Sulfate 2 mg 01/19/22 22:50 01/22/22 22:04 Morphine 2 Mg/1 Ml Inj IV 2 mg Q4H PRN Administration Pain, Moderate (4-6) Ondansetron HCl 4 mg 01/19/22 22:50 01/22/22 15:58 Ondansetron 4 Mg/2 Ml Inj IV 4 mg Q8H PRN Administration Nausea And Vomiting Sodium Chloride 10 ml 01/20/22 10:00 01/25/22 23:57 Sodium Chloride 0.9% 10 Ml Flush Syringe IV 10 ml BID JENNY Administration Sodium Chloride 10 ml 01/19/22 22:50 01/22/22 06:39 Sodium Chloride 0.9% 10 Ml Flush Syringe IV 10 ml PRN PRN Administration LINE FLUSH
[2022-01-26] MEDS: CALCIUM ACETATE 667 MG CAP PO SCH ×3 (08:36→17:08)
--- NOTE | 2022-01-26 10:56 | Progress Note ---
History Interval history: This is a 36-year-old male with known past medical history of HIV/AIDS, HTN, and possible medical noncompliance admitted for hypertensive emergency and acute on chronic renal failure #Hypertensive Emergency #Possible medical Noncompliance - Presented with SBP in the 200s, s/p Cardene gtt - Hypertensive this am, SBP back up in the 200s despite schedule meds and PRN Hydralazine - X1 dose of IV labetalol given, SBP improved in the 160s - Continue current antihypertensive regimen (Coreg and Amlodipine) - Minoxidil added for better BP control - Continue blood pressure monitor per protocol - PRN Hydralazine to maintain SBP less than 160 #Acute on Chronic Renal Failure #Hyponatremia - Presented with Scr. of 32.6 and Hyperkalemia - baseline renal function is unknown - Per patient, he was informed that he had renal insufficiency by PCP and needed to follow-up with plasma center technician but has been unable to due to insurance issues - s/p IV Bumex and Bcarb gtt, - Patient remains nonoliguric - Nephrology on consult, appreciated recommendation - Strict intake and output - Avoid nephrotoxic medications; Renally dose medications - Monitor and replace electrolytes as needed #Nausea/Vomiting #Abdominal Pain-resolved #Poor PO intake - Presented with N/V, gen. weakness and fatige, elevated amylase and lipase - CT abd/pelvis shows no acute process in the abdomen or pelvis urinary tract calculi or hydronephrosis. Pancreatitis ruled out - PRN antiemetic for N/V - PRN Analgesia for pain control - Trend LFts, amylase, and lipase #H/o HIV/AIDS - Per patient viral load is undetectable - Patient admits noncompliance with meds. - ART on hold for now in the setting of worsen DAWSON. Reassess prior to discharge #Hyperglycemia - Continue BG check and SSI ACHS - Avoid Hypoglycemia #GI/DVT Prophylaxis - PPI- Pepcid - SCDs to bilateral lower extremities while in bed Hospital course to date: 01/20: Patient has been weaned off nicardipine since afternoon and restarted home amlodipine and Coreg, increase in coreg and IV hydral ordered. Transfer to [facility]. COVID-19 PCR pending. Patient currently refusing hemodialysis when informed that he may need hemodialysis but the decision will be made by the plasma center technician. 01/21: Off cardene gtt since yesterday. Patient is hypertensive this am despite PRN IV Hydralazine. X1 dose IV labetall administered, SBP down in the 160s. Minoxidil added BID for better BP control. Renal function is unchanged, plan for iHD tomorrow per Nephro. Vascular Surgery consulted for permacath placement. NPO after midnight tonight for permacath placement. Plan of care discussed with patient at the bedside, all questions and concerns addressed at this time. D/W CCM patient is stable for transfer to the floor. 01/22: Blood pressure is much better controlled. IR to perform PermCath placement today. Nephrology to initiate hemodialysis after PermCath placement. CT of abdomen and pelvis revealing no hydronephrosis or obstructive uropathy. Patient has significant proteinuria on urine studies. Follow-up SPEP, serum free light chains, BLANCA, ANCA, Anti-GBM, C3, C4, Hep panel. D/C bicarb drip once start on hemodialysis. Continue to renally dose medications and avoid nephrotoxic agents. Strict I/O's daily 01/23: Patient is s/p PermCath placement for initiation of hemodialysis. Follow- up SPEP, serum free light chains, BLANCA, ANCA, Anti-GBM, C3, C4, Hep panel. Continue to renally dose medications and avoid nephrotoxic agents. Strict I/O's daily. Blood pressure remains better controlled. We will discuss with case management plans for outpatient hemodialysis chair 01/24: Nephrology reports patient with acute kidney injury superimposed on CKD versus progressive CKD or HIVAN. Patient with initiation of hemodialysis on 01/22. Follow-up SPEP, serum free light chains, BLANCA, ANCA, Anti-GBM, C3, C4. Hep panel was negative. Consented to HIV (DNA/RNA PCR) testing yesterday. Continue to renally dose medications and avoid nephrotoxic agents. Strict I/O's daily 01/25: Continue hemodialysis per nephrology recommendations. Follow-up SPEP, serum free light chains, BLANCA, ANCA, Anti-GBM, C3, C4. Continue to renally dose medications and avoid nephrotoxic agents. Strict I/O's daily. HIV meds on hold due to severe renal failure. Type and cross and transfuse 1 unit PRBCs for anemia 01/26: Continue hemodialysis per nephrology recommendations. Follow-up SPEP, serum free light chains, BLANCA, ANCA, Anti-GBM, C3, C4. Continue to renally dose medications and avoid nephrotoxic agents. Strict I/O's daily. HIV meds on hold due to severe renal failure. Type and cross and transfuse 1 unit PRBCs for anemia Hospitalist Physical - Constitutional Vitals: Temp Pulse Resp BP Pulse Ox 98.3 F 86 16 100/48 100 01/26/22 06:01 01/26/22 06:01 01/26/22 06:01 01/26/22 06:01 01/26/22 06:01 General appearance: Present: no acute distress, well-nourished Results - Labs CBC & Chem 7: 01/25/22 08:35 01/25/22 08:35 Labs: Laboratory Last Values WBC 11.4 K/mm3 (4.5-11.0) H 01/25/22 08:35 RBC 2.43 M/mm3 (3.65-5.03) L 01/25/22 08:35 Hgb 6.9 gm/dl (11.8-15.2) L 01/25/22 08:35 Hct 20.9 % (35.5-45.6) L 01/25/22 08:35 MCV 86 fl (84-94) 01/25/22 08:35 MCH 28 pg (28-32) 01/25/22 08:35 MCHC 33 % (32-34) 01/25/22 08:35 RDW 14.6 % (13.2-15.2) 01/25/22 08:35 Plt Count 215 K/mm3 (140-440) 01/25/22 08:35 Lymph % (Auto) 21.8 % (13.4-35.0) 01/24/22 07:15 [place] % (Auto) 12.7 % (0.0-7.3) H 01/24/22 07:15 Eos % (Auto) 1.0 % (0.0-4.3) 01/24/22 07:15 Baso % (Auto) 0.4 % (0.0-1.8) 01/24/22 07:15 Lymph # (Auto) 2.4 K/mm3 (1.2-5.4) 01/24/22 07:15 [place] # (Auto) 1.4 K/mm3 (0.0-0.8) H 01/24/22 07:15 Eos # (Auto) 0.1 K/mm3 (0.0-0.4) 01/24/22 07:15 Baso # (Auto) 0.0 K/mm3 (0.0-0.1) 01/24/22 07:15 Add Manual Diff Complete 01/19/22 18:38 Total Counted 100 01/19/22 18:38 Seg Neutrophils % 64.1 % (40.0-70.0) 01/24/22 07:15 Seg Neuts % (Manual) 63.0 % (40.0-70.0) 01/19/22 18:38 Band Neutrophils % 0 % 01/19/22 18:38 Lymphocytes % (Manual) 33.0 % (13.4-35.0) 01/19/22 18:38 Reactive Lymphs % (Man) 0 % 01/19/22 18:38 Monocytes % (Manual) 1.0 % (0.0-7.3) 01/19/22 18:38 Eosinophils % (Manual) 2.0 % (0.0-4.3) 01/19/22 18:38 Basophils % (Manual) 1.0 % (0.0-1.8) 01/19/22 18:38 Metamyelocytes % 0 % 01/19/22 18:38 Myelocytes % 0 % 01/19/22 18:38 Promyelocytes % 0 % 01/19/22 18:38 Blast Cells % 0 % 01/19/22 18:38 Nucleated RBC % Not Reportable 01/19/22 18:38 Seg Neutrophils # 7.0 K/mm3 (1.8-7.7) 01/24/22 07:15 Seg Neutrophils # Man 4.5 K/mm3 (1.8-7.7) 01/19/22 18:38 Band Neutrophils # 0.0 K/mm3 01/19/22 18:38 Lymphocytes # (Manual) 2.4 K/mm3 (1.2-5.4) 01/19/22 18:38 Abs React Lymphs (Man) 0.0 K/mm3 01/19/22 18:38 Monocytes # (Manual) 0.1 K/mm3 (0.0-0.8) 01/19/22 18:38 Eosinophils # (Manual) 0.1 K/mm3 (0.0-0.4) 01/19/22 18:38 Basophils # (Manual) 0.1 K/mm3 (0.0-0.1) 01/19/22 18:38 Metamyelocytes # 0.0 K/mm3 01/19/22 18:38 Myelocytes # 0.0 K/mm3 01/19/22 18:38 Promyelocytes # 0.0 K/mm3 01/19/22 18:38 Blast Cells # 0.0 K/mm3 01/19/22 18:38 WBC Morphology Not Reportable 01/19/22 18:38 Hypersegmented Neuts Not Reportable 01/19/22 18:38 Hyposegmented Neuts Not Reportable 01/19/22 18:38 Hypogranular Neuts Not Reportable 01/19/22 18:38 Smudge Cells Not Reportable 01/19/22 18:38 Toxic Granulation Not Reportable 01/19/22 18:38 Toxic Vacuolation Not Reportable 01/19/22 18:38 Dohle Bodies Not Reportable 01/19/22 18:38 Pelger-Huet Anomaly Not Reportable 01/19/22 18:38 Kallie Rods Not Reportable 01/19/22 18:38 Platelet Estimate Consistent w auto 01/19/22 18:38 Clumped Platelets Not Reportable 01/19/22 18:38 Plt Clumps, EDTA Not Reportable 01/19/22 18:38 Large Platelets Not Reportable 01/19/22 18:38 Giant Platelets Not Reportable 01/19/22 18:38 Platelet Satelliting Not Reportable 01/19/22 18:38 Plt Morphology Comment Not Reportable 01/19/22 18:38 RBC Morphology Not Reportable 01/19/22 18:38 Dimorphic RBCs Not Reportable 01/19/22 18:38 Polychromasia Not Reportable 01/19/22 18:38 Hypochromasia Not Reportable 01/19/22 18:38 Poikilocytosis Not Reportable 01/19/22 18:38 Anisocytosis 1+ 01/19/22 18:38 Microcytosis Not Reportable 01/19/22 18:38 Macrocytosis Not Reportable 01/19/22 18:38 Spherocytes Not Reportable 01/19/22 18:38 Pappenheimer Bodies Not Reportable 01/19/22 18:38 Sickle Cells Not Reportable 01/19/22 18:38 Target Cells Not Reportable 01/19/22 18:38 Tear Drop Cells Not Reportable 01/19/22 18:38 Ovalocytes Not Reportable 01/19/22 18:38 Helmet Cells Not Reportable 01/19/22 18:38 Santamarai-Buckhall Bodies Not Reportable 01/19/22 18:38 Mcclure Rings Not Reportable 01/19/22 18:38 Viola Cells Not Reportable 01/19/22 18:38 Bite Cells Not Reportable 01/19/22 18:38 Crenated Cell Not Reportable 01/19/22 18:38 Elliptocytes Not Reportable 01/19/22 18:38 Acanthocytes (Spur) Not Reportable 01/19/22 18:38 Rouleaux Not Reportable 01/19/22 18:38 Hemoglobin C Crystals Not Reportable 01/19/22 18:38 Schistocytes Not Reportable 01/19/22 18:38 Malaria parasites Not Reportable 01/19/22 18:38 Edgardo Bodies Not Reportable 01/19/22 18:38 Hem Pathologist Commnt No 01/19/22 18:38 Sodium 132 mmol/L (137-145) L 01/25/22 08:35 Potassium 3.7 mmol/L (3.6-5.0) 01/25/22 08:35 Chloride 92.4 mmol/L (98-107) L 01/25/22 08:35 Carbon Dioxide 27 mmol/L (22-30) 01/25/22 08:35 Anion Gap 16 mmol/L 01/25/22 08:35 BUN 54 mg/dL (9-20) H 01/25/22 08:35 Creatinine 12.6 mg/dL (0.8-1.3) H 01/25/22 08:35 Estimated GFR 6 ml/min 01/25/22 08:35 BUN/Creatinine Ratio 4 % 01/25/22 08:35 Glucose 131 mg/dL (75-100) H 01/25/22 08:35 POC Glucose 142 mg/dL (70-105) H 01/21/22 11:41 Calcium 7.1 mg/dL (8.4-10.2) L D 01/25/22 08:35 Phosphorus 13.20 mg/dL (2.5-4.5) H 01/22/22 04:49 Magnesium 2.10 mg/dL (1.7-2.3) 01/22/22 04:49 Iron 61 ug/dL (49-181) 01/23/22 05:53 TIBC 148 mcg/dL (250-450) L 01/23/22 05:53 Total Bilirubin 0.40 mg/dL (0.1-1.2) 01/22/22 04:49 AST 21 units/L (5-40) 01/22/22 04:49 ALT 23 units/L (7-56) 01/22/22 04:49 Alkaline Phosphatase 88 units/L (35-129) 01/22/22 04:49 Total Creatine Kinase 690 units/L (55-170) H 01/20/22 11:23 Total Protein 6.5 g/dL (6.3-8.2) D 01/22/22 04:49 Albumin 3.7 g/dL (3.9-5) L 01/22/22 04:49 Albumin/Globulin Ratio 1.3 % 01/22/22 04:49 Amylase 223 units/L (27-131) H 01/22/22 04:49 Lipase 164 units/L (13-60) H 01/22/22 04:49 PTH Intact 443.7 pg/mL (15-65) H 01/20/22 11:38 Urine Color Yellow (Yellow) 01/19/22 Unknown Urine Turbidity Slightly cloudy (Clear) 01/19/22 Unknown Urine pH 6.0 (5.0-7.0) 01/19/22 Unknown Ur Specific [place] 1.025 (1.003-1.030) 01/19/22 Unknown Urine Protein 100 mg/dl mg/dL (Negative) 01/19/22 Unknown Urine Glucose (UA) Negative mg/dL (Negative) 01/19/22 Unknown Urine Ketones Negative mg/dL (Negative) 01/19/22 Unknown Urine Blood Trace (Negative) 01/19/22 Unknown Urine Nitrite Negative (Negative) 01/19/22 Unknown Ur Reducing Substances Not Reportable 01/19/22 Unknown Urine Bilirubin Negative (Negative) 01/19/22 Unknown Urine Ictotest Not Reportable 01/19/22 Unknown Urine Urobilinogen 2.0 mg/dL (<2.0) 01/19/22 Unknown Ur Leukocyte Esterase Negative (Negative) 01/19/22 Unknown Urine WBC (Auto) 4.0 /HPF (0.0-6.0) 01/19/22 Unknown Urine RBC (Auto) 2.0 /HPF (0.0-6.0) 01/19/22 Unknown U Epithel Cells (Auto) 2.0 /HPF (0-13.0) 01/19/22 Unknown Urine Bacteria (Auto) 1+ /HPF (Negative) 01/19/22 Unknown Urine Eosinophils None seen (None Seen) 01/20/22 15:30 Urine Creatinine 64.2 mg/dL (0.1-20.0) H 01/20/22 15:30 Protein/Creatinin Ratio 3.60 01/20/22 15:30 Urine Sodium 83 mmol/L 01/20/22 15:30 Urine Total Protein 231 mg/dL (5-11.8) H 01/20/22 15:30 Complement C3 116 mg/dL (82-185) 01/22/22 04:49 Complement C4 33 mg/dL (15-53) 01/22/22 04:49 Coronavirus (PCR) Negative (Negative) 01/20/22 05:28 Hepatitis A IgM Ab Non-reactive (NonReactive) 01/21/22 04:51 Hep Bs Antigen Non-reactive (Negative) 01/21/22 04:51 Hep B Core IgM Ab Non-reactive (NonReactive) 01/21/22 04:51 Hepatitis C Antibody Non-reactive (NonReactive) 01/21/22 04:51 Blood Type O POSITIVE 01/26/22 00:08 Antibody Screen Negative 01/26/22 00:08 Crossmatch See Detail 01/26/22 00:08 Kiran/IV: Voiding Method Urinal Active Medications - Current Medications Current Medications: Generic Name Dose Route Start Last Admin Trade Name Freq PRN Reason Stop Dose Admin Acetaminophen 650 mg 01/19/22 22:50 01/26/22 04:07 Acetaminophen 325 Mg Tab PO 650 mg Q4H PRN Administration Pain MILD(1-3)/Fever >100.5/OSCAR Amlodipine Besylate 10 mg 01/20/22 10:00 01/25/22 10:10 Amlodipine 10 Mg Tab PO Not Given QDAY [facility] Calcium Acetate 667 mg 01/21/22 17:00 01/26/22 08:36 Calcium Acetate 667 Mg Cap PO 667 mg TIDWM JENNY Administration Carvedilol 25 mg 01/20/22 22:00 01/25/22 23:56 Carvedilol 25 Mg Tab PO 25 mg BID JENNY Administration Dextrose 50 ml 01/20/22 13:29 Dextrose 50% In Water (25gm) 50 Ml Syringe IV Q30MIN PRN Hypoglycemia Protocol Famotidine 20 mg 01/22/22 10:00 01/25/22 12:11 Famotidine 20 Mg Tab PO 20 mg QDAY JENNY Administration Hydralazine HCl 25 mg 01/23/22 22:00 01/26/22 05:34 Hydralazine 25 Mg Tab PO Not Given Q8HR JENNY Melatonin 5 mg 01/21/22 22:00 01/25/22 23:56 Melatonin 5 Mg Tab PO 5 mg QHS JENNY Administration Minoxidil 5 mg 01/21/22 11:00 01/25/22 23:55 Minoxidil 2.5 Mg Tab PO 5 mg BID JENNY Administration Morphine Sulfate 2 mg 01/19/22 22:50 01/22/22 22:04 Morphine 2 Mg/1 Ml Inj IV 2 mg Q4H PRN Administration Pain, Moderate (4-6) Ondansetron HCl 4 mg 01/19/22 22:50 01/22/22 15:58 Ondansetron 4 Mg/2 Ml Inj IV 4 mg Q8H PRN Administration Nausea And Vomiting Sodium Chloride 10 ml 01/20/22 10:00 01/25/22 23:57 Sodium Chloride 0.9% 10 Ml Flush Syringe IV 10 ml BID JENNY Administration Sodium Chloride 10 ml 01/19/22 22:50 01/22/22 06:39 Sodium Chloride 0.9% 10 Ml Flush Syringe IV 10 ml PRN PRN Administration LINE FLUSH Nutrition/Malnutrition Assess - Dietary Evaluation Nutrition/Malnutrition Findings: Nutrition Notes Start: 01/25/22 12:30 Freq: Status: Active Protocol: Document 01/25/22 12:30 MISSY (Rec: 01/25/22 12:34 MISSY [id number]) Nutrition Notes Need for Assessment generated from: LOS Initial or Follow up Brief Note Current Diagnosis Acute Kidney Injury, Hypertension Other Pertinent Diagnosis Hypertensive emergency, HIV Current Diet Renal Labs/Tests Na 132 BUN 54 Cr 12.6 Ca 7.1 (adj 7.34) Pertinent Medications Phoslo Height 5 ft 11 in Weight 79.5 kg [place] Body Weight (kg) 78.18 BMI 24.4 Weight Status Appropriate Subjective/Other Information Pt screened for LOS. HD was initiated on 01/22. He consumed 17% of meals on 01/22. No other meal intakes documented. Unable to speak to pt today; in HD. Burn Absent Trauma Absent Current % PO Poor (25-49%) Is patient on ventilator? No Is Patient Ambulatory and/or Out of Bed Yes [facility] [ [id number] [id number]] Calculation Used for Recommendations [facility] Additional Notes Pro needs >1.2g/kg: >95g/day Fluid needs 1-1.5L/day Nutrition Intervention Follow-Up By: 01/27/22 Additional Comments F/U: MST screen, N/V, ONS need
[2022-01-26 11:09] LABS: Basophils % (Auto) 0.3 % (0.0-1.8); Eosinophils # (Auto) 0.2 K/mm3 (0.0-0.4); Eosinophils % (Auto) 1.9 % (0.0-4.3); Hematocrit 23.3 % (35.5-45.6); Hemoglobin 7.8 gm/dl (11.8-15.2); Lymphocytes # (Auto) 1.8 K/mm3 (1.2-5.4); Lymphocytes % (Auto) 20.5 % (13.4-35.0); Mean Corpuscular HGB Conc 34 % (32-34); Mean Corpuscular Volume 87 fl (84-94); Monocytes % (Auto) 11.1 % (0.0-7.3); Platelet Count 240 K/mm3 (140-440); Red Cell Distribution Width 13.9 % (13.2-15.2)
[2022-01-26] MEDS: amLODIPine 10 MG TAB PO SCH (11:25)
[2022-01-26 11:27] LABS: Calcium 7.8 mg/dL (8.4-10.2)
[2022-01-26] MEDS: carvediloL 25 MG TAB PO SCH ×2 (11:27→21:39)
[2022-01-26] MEDS: MINOXIDIL 2.5 MG TAB PO SCH ×2 (11:27→21:39)
[2022-01-26] MEDS: FAMOTIDINE 20 MG TAB PO SCH (11:36)
[2022-01-26 20:07] LABS: HIV-1 RNA QN PCR <1.30 Log cps/mL; HIV-1 RNA QN PCR <20 Copies/mL
[2022-01-26] MEDS: MELATONIN 5 MG TAB PO SCH (21:38)
[2022-01-27] MEDS: hydrALAZINE 25 MG TAB PO SCH ×3 (06:24→21:28)
[2022-01-27 07:34] LABS: Basophils % (Auto) 0.5 % (0.0-1.8); Eosinophils # (Auto) 0.3 K/mm3 (0.0-0.4); Eosinophils % (Auto) 2.8 % (0.0-4.3); Hematocrit 22.1 % (35.5-45.6); Hemoglobin 7.5 gm/dl (11.8-15.2); Lymphocytes # (Auto) 2.5 K/mm3 (1.2-5.4); Lymphocytes % (Auto) 28.5 % (13.4-35.0); Mean Corpuscular HGB Conc 34 % (32-34); Mean Corpuscular Volume 87 fl (84-94); Monocytes # (Auto) 1.1 K/mm3 (0.0-0.8); Monocytes % (Auto) 12.6 % (0.0-7.3); Platelet Count 253 K/mm3 (140-440); Red Blood Count 2.54 M/mm3 (3.65-5.03); Red Cell Distribution Width 13.7 % (13.2-15.2)
[2022-01-27 07:56] LABS: Calcium 7.1 mg/dL (8.4-10.2)
[2022-01-27] MEDS: CALCIUM ACETATE 667 MG CAP PO SCH ×3 (07:56→17:07)
[2022-01-27] MEDS ORDERED: SODIUM CHLORIDE 0.9% 100 ML IV PRN (08:23)
--- NOTE | 2022-01-27 08:26 | Progress Note ---
Assessment and Plan Acute Kidney injury on top of CKD vs Progressive CKD, Could have HIVAN, now on dialysis Hyperkalemia: Metabolic acidosis: HIV: Hypertension: Nausea and vomiting: Secondary Hyperparathyroidism from CKD: Hyperphosphatemia Plan: -Renal function reviewed, SCr level was 9.7 today, yesterday's SCr level was 8.3 -No acute indication for HD today -HD tomorrow for UF and clearance with higher calcium bath and 3K Bath -Assess need for HD on daily basis -S/p perm catheter placement and first hemodialysis session on 01/22/22 -No signs of renal recovery so far, will likely need to consult CM for OP HD placement -CT of Abdomen and Pelvis w/o contrast on 01/19/22 showed No hydronephrosis -Urine studies reviewed, calculated protein to cr ratio 3.6 g, nephrotic range proteinuria, no urine eosinophils -Obtain SPEP, serum free light chains, BLANCA, ANCA, Anti-GBM, C3, C4 -So far Hepatitis panel, C3, C4, free kappa/lambda ratio -> negative. -HIV 1 RNA PCR copies/ml was < 20 and HIV 1 RNA PCR log was < 1.30 -HIV meds on hold due to severe renal failure -On Phoslo 667 mg po TID with meals -Renally dose all medications -PTH level was high suggestive of secondary hyperparathyroidism from CKD -Strict I/O's daily -Intake= 610 ml Output= none recorded -Renal plan reviewed by Dr Rodriguez Subjective Date of service: 01/27/22 Principal diagnosis: Severe renal failure Interval history: Pt seen in bed, denies shortness of breath, no acute distress, no family at bedside Objective - Vital Signs Vital signs: Vital Signs - 12hr 01/26/22 01/26/22 01/26/22 21:38 21:39 22:00 Temperature Pulse Rate 89 89 Respiratory 16 Rate Blood Pressure 102/46 102/46 Blood Pressure [Left] O2 Sat by Pulse 98 Oximetry 01/27/22 01/27/22 06:22 06:24 Temperature 98.0 F Pulse Rate 80 80 Respiratory 18 Rate Blood Pressure 107/55 Blood Pressure 107/55 [Left] O2 Sat by Pulse 98 Oximetry - General Appearance General appearance: fatigue EENT: ATNC Neck: no JVD Respiratory: Present: Decreased Breath Sounds Cardiology: regular, S1S2, other (ACCESS: Right IJ Perm Catheter intact) Gastrointestinal: normoactive bowel sounds, no tenderness Integumentary: warm and dry Neurologic: alert and oriented x3 - Lab 01/27/22 04:00 01/27/22 06:00 Most recent lab results Calcium 7.1 mg/dL (8.4-10.2) L 01/27/22 06:00 Phosphorus 13.20 mg/dL (2.5-4.5) H 01/22/22 04:49 Magnesium 2.10 mg/dL (1.7-2.3) 01/22/22 04:49 Urine Creatinine 64.2 mg/dL (0.1-20.0) H 01/20/22 15:30 Urine Sodium 83 mmol/L 01/20/22 15:30 Urine Total Protein 231 mg/dL (5-11.8) H 01/20/22 15:30 Medications & Allergies - Medications Allergies/Adverse Reactions: Allergies No Known Allergies Allergy (Verified 01/24/22 08:49) Home Medications: Home Medications Medication Instructions Recorded Confirmed Last Taken Type Calcium Carbonate [Calcium Antacid] 300 mg PO TID 01/23/22 01/24/22 Unknown History Dolutegravir [Tivicay] 50 mg PO DAILY 01/23/22 01/24/22 Unknown History Sodium Bicarbonate 1,300 mg PO TID 01/23/22 01/24/22 Unknown History amLODIPine [Norvasc] 10 mg PO DAILY 01/23/22 01/24/22 Unknown History carvediloL [Coreg] 12.5 mg PO BID 01/23/22 01/24/22 Unknown History Abacavir Sulfate/Lamivudine 1 each PO QDAY 01/24/22 01/24/22 Unknown History [Abacavir-Lamivudine 600-300 mg] Active Medications: Generic Name Dose Route Start Last Admin Trade Name Freq PRN Reason Stop Dose Admin Acetaminophen 650 mg 01/19/22 22:50 01/26/22 04:07 Acetaminophen 325 Mg Tab PO 650 mg Q4H PRN Administration Pain MILD(1-3)/Fever >100.5/OSCAR Amlodipine Besylate 10 mg 01/20/22 10:00 01/26/22 11:25 Amlodipine 10 Mg Tab PO Not Given QDAY [facility] Calcium Acetate 667 mg 01/21/22 17:00 01/27/22 07:56 Calcium Acetate 667 Mg Cap PO 667 mg TIDWM JENNY Administration Carvedilol 25 mg 01/20/22 22:00 01/26/22 21:39 Carvedilol 25 Mg Tab PO Not Given BID JENNY Dextrose 50 ml 01/20/22 13:29 Dextrose 50% In Water (25gm) 50 Ml Syringe IV Q30MIN PRN Hypoglycemia Protocol Famotidine 20 mg 01/22/22 10:00 01/26/22 11:36 Famotidine 20 Mg Tab PO 20 mg QDAY JENNY Administration Hydralazine HCl 25 mg 01/23/22 22:00 01/27/22 06:24 Hydralazine 25 Mg Tab PO Not Given Q8HR JENNY Melatonin 5 mg 01/21/22 22:00 01/26/22 21:38 Melatonin 5 Mg Tab PO 5 mg QHS JENNY Administration Minoxidil 5 mg 01/21/22 11:00 01/26/22 21:39 Minoxidil 2.5 Mg Tab PO Not Given BID [facility] Morphine Sulfate 2 mg 01/19/22 22:50 01/22/22 22:04 Morphine 2 Mg/1 Ml Inj IV 2 mg Q4H PRN Administration Pain, Moderate (4-6) Ondansetron HCl 4 mg 01/19/22 22:50 01/22/22 15:58 Ondansetron 4 Mg/2 Ml Inj IV 4 mg Q8H PRN Administration Nausea And Vomiting Sodium Chloride 10 ml 01/20/22 10:00 01/26/22 21:40 Sodium Chloride 0.9% 10 Ml Flush Syringe IV 10 ml BID JENNY Administration Sodium Chloride 10 ml 01/19/22 22:50 01/26/22 21:40 Sodium Chloride 0.9% 10 Ml Flush Syringe IV 10 ml PRN PRN Administration LINE FLUSH
--- NOTE | 2022-01-27 08:37 | Progress Note ---
History Interval history: This is a 36-year-old male with known past medical history of HIV/AIDS, HTN, and possible medical noncompliance admitted for hypertensive emergency and acute on chronic renal failure #Hypertensive Emergency #Possible medical Noncompliance - Presented with SBP in the 200s, s/p Cardene gtt - Hypertensive this am, SBP back up in the 200s despite schedule meds and PRN Hydralazine - X1 dose of IV labetalol given, SBP improved in the 160s - Continue current antihypertensive regimen (Coreg and Amlodipine) - Minoxidil added for better BP control - Continue blood pressure monitor per protocol - PRN Hydralazine to maintain SBP less than 160 #Acute on Chronic Renal Failure #Hyponatremia - Presented with Scr. of 32.6 and Hyperkalemia - baseline renal function is unknown - Per patient, he was informed that he had renal insufficiency by PCP and needed to follow-up with meat stringer but has been unable to due to insurance issues - s/p IV Bumex and Bcarb gtt, - Patient remains nonoliguric - Nephrology on consult, appreciated recommendation - Strict intake and output - Avoid nephrotoxic medications; Renally dose medications - Monitor and replace electrolytes as needed #Nausea/Vomiting #Abdominal Pain-resolved #Poor PO intake - Presented with N/V, gen. weakness and fatige, elevated amylase and lipase - CT abd/pelvis shows no acute process in the abdomen or pelvis urinary tract calculi or hydronephrosis. Pancreatitis ruled out - PRN antiemetic for N/V - PRN Analgesia for pain control - Trend LFts, amylase, and lipase #H/o HIV/AIDS - Per patient viral load is undetectable - Patient admits noncompliance with meds. - ART on hold for now in the setting of worsen DAWSON. Reassess prior to discharge #Hyperglycemia - Continue BG check and SSI ACHS - Avoid Hypoglycemia #GI/DVT Prophylaxis - PPI- Pepcid - SCDs to bilateral lower extremities while in bed Hospital course to date: 01/20: Patient has been weaned off nicardipine since afternoon and restarted home amlodipine and Coreg, increase in coreg and IV hydral ordered. Transfer to [facility]. COVID-19 PCR pending. Patient currently refusing hemodialysis when informed that he may need hemodialysis but the decision will be made by the meat stringer. 01/21: Off cardene gtt since yesterday. Patient is hypertensive this am despite PRN IV Hydralazine. X1 dose IV labetall administered, SBP down in the 160s. Minoxidil added BID for better BP control. Renal function is unchanged, plan for iHD tomorrow per Nephro. Vascular Surgery consulted for permacath placement. NPO after midnight tonight for permacath placement. Plan of care discussed with patient at the bedside, all questions and concerns addressed at this time. D/W CCM patient is stable for transfer to the floor. 01/22: Blood pressure is much better controlled. IR to perform PermCath placement today. Nephrology to initiate hemodialysis after PermCath placement. CT of abdomen and pelvis revealing no hydronephrosis or obstructive uropathy. Patient has significant proteinuria on urine studies. Follow-up SPEP, serum free light chains, BLANCA, ANCA, Anti-GBM, C3, C4, Hep panel. D/C bicarb drip once start on hemodialysis. Continue to renally dose medications and avoid nephrotoxic agents. Strict I/O's daily 01/23: Patient is s/p PermCath placement for initiation of hemodialysis. Follow- up SPEP, serum free light chains, BLANCA, ANCA, Anti-GBM, C3, C4, Hep panel. Continue to renally dose medications and avoid nephrotoxic agents. Strict I/O's daily. Blood pressure remains better controlled. We will discuss with case management plans for outpatient hemodialysis chair 01/24: Nephrology reports patient with acute kidney injury superimposed on CKD versus progressive CKD or HIVAN. Patient with initiation of hemodialysis on 01/22. Follow-up SPEP, serum free light chains, BLANCA, ANCA, Anti-GBM, C3, C4. Hep panel was negative. Consented to HIV (DNA/RNA PCR) testing yesterday. Continue to renally dose medications and avoid nephrotoxic agents. Strict I/O's daily 01/25: Continue hemodialysis per nephrology recommendations. Follow-up SPEP, serum free light chains, BLANCA, ANCA, Anti-GBM, C3, C4. Continue to renally dose medications and avoid nephrotoxic agents. Strict I/O's daily. HIV meds on hold due to severe renal failure. Type and cross and transfuse 1 unit PRBCs for anemia 01/26: Continue hemodialysis per nephrology recommendations. Follow-up SPEP, serum free light chains, BLANCA, ANCA, Anti-GBM, C3, C4. Continue to renally dose medications and avoid nephrotoxic agents. Strict I/O's daily. HIV meds on hold due to severe renal failure. Type and cross and transfuse 1 unit PRBCs for anemia 01/27: Patient to resume hemodialysis in a.m. per nephrology. Patient with no signs of renal recovery thus far and will likely need outpatient hemodialysis placement. Case management with continuing efforts to obtain outpatient chair. Urine studies reviewed, calculated protein to cr ratio 3.6 g, nephrotic range proteinuria, no urine eosinophils. F/U SPEP, serum free light chains, BLANCA, ANCA, Anti-GBM, C3, C4. Hepatitis panel, C3, C4, free kappa/lambda ratio -> negative. Hemoglobin stable at 7.5 s/p 1 unit PRBCs with Hospitalist Physical - Constitutional Vitals: Temp Pulse Resp BP Pulse Ox 98.0 F 80 18 107/55 98 01/27/22 06:22 01/27/22 06:24 01/27/22 06:22 01/27/22 06:24 01/27/22 06:22 General appearance: Present: no acute distress, well-nourished Results - Labs CBC & Chem 7: 01/27/22 04:00 01/27/22 06:00 Labs: Laboratory Last Values WBC 8.9 K/mm3 (4.5-11.0) 01/27/22 04:00 RBC 2.54 M/mm3 (3.65-5.03) L 01/27/22 04:00 Hgb 7.5 gm/dl (11.8-15.2) L 01/27/22 04:00 Hct 22.1 % (35.5-45.6) L 01/27/22 04:00 MCV 87 fl (84-94) 01/27/22 04:00 MCH 29 pg (28-32) 01/27/22 04:00 MCHC 34 % (32-34) 01/27/22 04:00 RDW 13.7 % (13.2-15.2) 01/27/22 04:00 Plt Count 253 K/mm3 (140-440) 01/27/22 04:00 Lymph % (Auto) 28.5 % (13.4-35.0) 01/27/22 04:00 [place] % (Auto) 12.6 % (0.0-7.3) H 01/27/22 04:00 Eos % (Auto) 2.8 % (0.0-4.3) 01/27/22 04:00 Baso % (Auto) 0.5 % (0.0-1.8) 01/27/22 04:00 Lymph # (Auto) 2.5 K/mm3 (1.2-5.4) 01/27/22 04:00 [place] # (Auto) 1.1 K/mm3 (0.0-0.8) H 01/27/22 04:00 Eos # (Auto) 0.3 K/mm3 (0.0-0.4) 01/27/22 04:00 Baso # (Auto) 0.0 K/mm3 (0.0-0.1) 01/27/22 04:00 Add Manual Diff Complete 01/19/22 18:38 Total Counted 100 01/19/22 18:38 Seg Neutrophils % 55.6 % (40.0-70.0) 01/27/22 04:00 Seg Neuts % (Manual) 63.0 % (40.0-70.0) 01/19/22 18:38 Band Neutrophils % 0 % 01/19/22 18:38 Lymphocytes % (Manual) 33.0 % (13.4-35.0) 01/19/22 18:38 Reactive Lymphs % (Man) 0 % 01/19/22 18:38 Monocytes % (Manual) 1.0 % (0.0-7.3) 01/19/22 18:38 Eosinophils % (Manual) 2.0 % (0.0-4.3) 01/19/22 18:38 Basophils % (Manual) 1.0 % (0.0-1.8) 01/19/22 18:38 Metamyelocytes % 0 % 01/19/22 18:38 Myelocytes % 0 % 01/19/22 18:38 Promyelocytes % 0 % 01/19/22 18:38 Blast Cells % 0 % 01/19/22 18:38 Nucleated RBC % Not Reportable 01/19/22 18:38 Seg Neutrophils # 4.9 K/mm3 (1.8-7.7) 01/27/22 04:00 Seg Neutrophils # Man 4.5 K/mm3 (1.8-7.7) 01/19/22 18:38 Band Neutrophils # 0.0 K/mm3 01/19/22 18:38 Lymphocytes # (Manual) 2.4 K/mm3 (1.2-5.4) 01/19/22 18:38 Abs React Lymphs (Man) 0.0 K/mm3 01/19/22 18:38 Monocytes # (Manual) 0.1 K/mm3 (0.0-0.8) 01/19/22 18:38 Eosinophils # (Manual) 0.1 K/mm3 (0.0-0.4) 01/19/22 18:38 Basophils # (Manual) 0.1 K/mm3 (0.0-0.1) 01/19/22 18:38 Metamyelocytes # 0.0 K/mm3 01/19/22 18:38 Myelocytes # 0.0 K/mm3 01/19/22 18:38 Promyelocytes # 0.0 K/mm3 01/19/22 18:38 Blast Cells # 0.0 K/mm3 01/19/22 18:38 WBC Morphology Not Reportable 01/19/22 18:38 Hypersegmented Neuts Not Reportable 01/19/22 18:38 Hyposegmented Neuts Not Reportable 01/19/22 18:38 Hypogranular Neuts Not Reportable 01/19/22 18:38 Smudge Cells Not Reportable 01/19/22 18:38 Toxic Granulation Not Reportable 01/19/22 18:38 Toxic Vacuolation Not Reportable 01/19/22 18:38 Dohle Bodies Not Reportable 01/19/22 18:38 Pelger-Huet Anomaly Not Reportable 01/19/22 18:38 Kallie Rods Not Reportable 01/19/22 18:38 Platelet Estimate Consistent w auto 01/19/22 18:38 Clumped Platelets Not Reportable 01/19/22 18:38 Plt Clumps, EDTA Not Reportable 01/19/22 18:38 Large Platelets Not Reportable 01/19/22 18:38 Giant Platelets Not Reportable 01/19/22 18:38 Platelet Satelliting Not Reportable 01/19/22 18:38 Plt Morphology Comment Not Reportable 01/19/22 18:38 RBC Morphology Not Reportable 01/19/22 18:38 Dimorphic RBCs Not Reportable 01/19/22 18:38 Polychromasia Not Reportable 01/19/22 18:38 Hypochromasia Not Reportable 01/19/22 18:38 Poikilocytosis Not Reportable 01/19/22 18:38 Anisocytosis 1+ 01/19/22 18:38 Microcytosis Not Reportable 01/19/22 18:38 Macrocytosis Not Reportable 01/19/22 18:38 Spherocytes Not Reportable 01/19/22 18:38 Pappenheimer Bodies Not Reportable 01/19/22 18:38 Sickle Cells Not Reportable 01/19/22 18:38 Target Cells Not Reportable 01/19/22 18:38 Tear Drop Cells Not Reportable 01/19/22 18:38 Ovalocytes Not Reportable 01/19/22 18:38 Helmet Cells Not Reportable 01/19/22 18:38 [place] Bodies Not Reportable 01/19/22 18:38 [place] Rings Not Reportable 01/19/22 18:38 [place] Cells Not Reportable 01/19/22 18:38 Bite Cells Not Reportable 01/19/22 18:38 Crenated Cell Not Reportable 01/19/22 18:38 Elliptocytes Not Reportable 01/19/22 18:38 Acanthocytes (Spur) Not Reportable 01/19/22 18:38 Rouleaux Not Reportable 01/19/22 18:38 Hemoglobin C Crystals Not Reportable 01/19/22 18:38 Schistocytes Not Reportable 01/19/22 18:38 Malaria parasites Not Reportable 01/19/22 18:38 Edgardo Bodies Not Reportable 01/19/22 18:38 Hem Pathologist Commnt No 01/19/22 18:38 Sodium 136 mmol/L (137-145) L 01/27/22 06:00 Potassium 3.4 mmol/L (3.6-5.0) L 01/27/22 06:00 Chloride 94.4 mmol/L (98-107) L 01/27/22 06:00 Carbon Dioxide 26 mmol/L (22-30) 01/27/22 06:00 Anion Gap 19 mmol/L 01/27/22 06:00 BUN 40 mg/dL (9-20) H 01/27/22 06:00 Creatinine 9.7 mg/dL (0.8-1.3) H 01/27/22 06:00 Estimated GFR 8 ml/min 01/27/22 06:00 BUN/Creatinine Ratio 4 % 01/27/22 06:00 Glucose 111 mg/dL (75-100) H 01/27/22 06:00 POC Glucose 142 mg/dL (70-105) H 01/21/22 11:41 Calcium 7.1 mg/dL (8.4-10.2) L 01/27/22 06:00 Phosphorus 13.20 mg/dL (2.5-4.5) H 01/22/22 04:49 Magnesium 2.10 mg/dL (1.7-2.3) 01/22/22 04:49 Iron 61 ug/dL (49-181) 01/23/22 05:53 TIBC 148 mcg/dL (250-450) L 01/23/22 05:53 Total Bilirubin 0.40 mg/dL (0.1-1.2) 01/22/22 04:49 AST 21 units/L (5-40) 01/22/22 04:49 ALT 23 units/L (7-56) 01/22/22 04:49 Alkaline Phosphatase 88 units/L (35-129) 01/22/22 04:49 Total Creatine Kinase 690 units/L (55-170) H 01/20/22 11:23 Total Protein 6.5 g/dL (6.3-8.2) D 01/22/22 04:49 Albumin 3.7 g/dL (3.9-5) L 01/22/22 04:49 Albumin/Globulin Ratio 1.3 % 01/22/22 04:49 Amylase 223 units/L (27-131) H 01/22/22 04:49 Lipase 164 units/L (13-60) H 01/22/22 04:49 PTH Intact 443.7 pg/mL (15-65) H 01/20/22 11:38 Urine Color Yellow (Yellow) 01/19/22 Unknown Urine Turbidity Slightly cloudy (Clear) 01/19/22 Unknown Urine pH 6.0 (5.0-7.0) 01/19/22 Unknown Ur Specific [place] 1.025 (1.003-1.030) 01/19/22 Unknown Urine Protein 100 mg/dl mg/dL (Negative) 01/19/22 Unknown Urine Glucose (UA) Negative mg/dL (Negative) 01/19/22 Unknown Urine Ketones Negative mg/dL (Negative) 01/19/22 Unknown Urine Blood Trace (Negative) 01/19/22 Unknown Urine Nitrite Negative (Negative) 01/19/22 Unknown Ur Reducing Substances Not Reportable 01/19/22 Unknown Urine Bilirubin Negative (Negative) 01/19/22 Unknown Urine Ictotest Not Reportable 01/19/22 Unknown Urine Urobilinogen 2.0 mg/dL (<2.0) 01/19/22 Unknown Ur Leukocyte Esterase Negative (Negative) 01/19/22 Unknown Urine WBC (Auto) 4.0 /HPF (0.0-6.0) 01/19/22 Unknown Urine RBC (Auto) 2.0 /HPF (0.0-6.0) 01/19/22 Unknown U Epithel Cells (Auto) 2.0 /HPF (0-13.0) 01/19/22 Unknown Urine Bacteria (Auto) 1+ /HPF (Negative) 01/19/22 Unknown Urine Eosinophils None seen (None Seen) 01/20/22 15:30 Urine Creatinine 64.2 mg/dL (0.1-20.0) H 01/20/22 15:30 Protein/Creatinin Ratio 3.60 01/20/22 15:30 Urine Sodium 83 mmol/L 01/20/22 15:30 Urine Total Protein 231 mg/dL (5-11.8) H 01/20/22 15:30 Complement C3 116 mg/dL (82-185) 01/22/22 04:49 Complement C4 33 mg/dL (15-53) 01/22/22 04:49 Coronavirus (PCR) Negative (Negative) 01/20/22 05:28 Hepatitis A IgM Ab Non-reactive (NonReactive) 01/21/22 04:51 Hep Bs Antigen Non-reactive (Negative) 01/21/22 04:51 Hep B Core IgM Ab Non-reactive (NonReactive) 01/21/22 04:51 Hepatitis C Antibody Non-reactive (NonReactive) 01/21/22 04:51 HIV-1 RNA PCR copies/ml <20 Copies/mL H 01/24/22 07:15 HIV-1 RNA (PCR) log <1.30 Log cps/mL H 01/24/22 07:15 Miscellaneous Test Flexitest 1 H 01/22/22 04:49 Blood Type O POSITIVE 01/26/22 00:08 Antibody Screen Negative 01/26/22 00:08 Crossmatch See Detail 01/26/22 00:08 Kiran/IV: Voiding Method Urinal Active Medications - Current Medications Current Medications: Generic Name Dose Route Start Last Admin Trade Name Freq PRN Reason Stop Dose Admin Acetaminophen 650 mg 01/19/22 22:50 01/26/22 04:07 Acetaminophen 325 Mg Tab PO 650 mg Q4H PRN Administration Pain MILD(1-3)/Fever >100.5/OSCAR Amlodipine Besylate 10 mg 01/20/22 10:00 01/26/22 11:25 Amlodipine 10 Mg Tab PO Not Given QDAY JENNY Calcium Acetate 667 mg 01/21/22 17:00 01/27/22 07:56 Calcium Acetate 667 Mg Cap PO 667 mg TIDWM JENNY Administration Carvedilol 25 mg 01/20/22 22:00 01/26/22 21:39 Carvedilol 25 Mg Tab PO Not Given BID JENNY Dextrose 50 ml 01/20/22 13:29 Dextrose 50% In Water (25gm) 50 Ml Syringe IV Q30MIN PRN Hypoglycemia Protocol Famotidine 20 mg 01/22/22 10:00 01/26/22 11:36 Famotidine 20 Mg Tab PO 20 mg QDAY JENNY Administration Hydralazine HCl 25 mg 01/23/22 22:00 01/27/22 06:24 Hydralazine 25 Mg Tab PO Not Given Q8HR [facility] Sodium Chloride 100 mls @ 999 mls/hr 01/27/22 08:23 Nacl 0.9% IV AUTUMN PRN Hypotension Melatonin 5 mg 01/21/22 22:00 01/26/22 21:38 Melatonin 5 Mg Tab PO 5 mg QHS JENNY Administration Minoxidil 5 mg 01/21/22 11:00 01/26/22 21:39 Minoxidil 2.5 Mg Tab PO Not Given BID JENNY Morphine Sulfate 2 mg 01/19/22 22:50 01/22/22 22:04 Morphine 2 Mg/1 Ml Inj IV 2 mg Q4H PRN Administration Pain, Moderate (4-6) Ondansetron HCl 4 mg 01/19/22 22:50 01/22/22 15:58 Ondansetron 4 Mg/2 Ml Inj IV 4 mg Q8H PRN Administration Nausea And Vomiting Sodium Chloride 10 ml 01/20/22 10:00 01/26/22 21:40 Sodium Chloride 0.9% 10 Ml Flush Syringe IV 10 ml BID JENNY Administration Sodium Chloride 10 ml 01/19/22 22:50 01/26/22 21:40 Sodium Chloride 0.9% 10 Ml Flush Syringe IV 10 ml PRN PRN Administration LINE FLUSH Nutrition/Malnutrition Assess - Dietary Evaluation Nutrition/Malnutrition Findings: Nutrition Notes Start: 01/25/22 12:30 Freq: Status: Active Protocol: Document 01/25/22 12:30 [id number] (Rec: 01/25/22 12:34 [facility] [id number]) Nutrition Notes Need for Assessment generated from: LOS Initial or Follow up Brief Note Current Diagnosis Acute Kidney Injury, Hypertension Other Pertinent Diagnosis Hypertensive emergency, HIV Current Diet Renal Labs/Tests Na 132 BUN 54 Cr 12.6 Ca 7.1 (adj 7.34) Pertinent Medications Phoslo Height 5 ft 11 in Weight 79.5 kg [place] Body Weight (kg) 78.18 BMI 24.4 Weight Status Appropriate Subjective/Other Information Pt screened for LOS. HD was initiated on 01/22. He consumed 17% of meals on 01/22. No other meal intakes documented. Unable to speak to pt today; in HD. Burn Absent Trauma Absent Current % PO Poor (25-49%) Is patient on ventilator? No Is Patient Ambulatory and/or Out of Bed Yes REE-([facility]-ambulatory/OOB) [ [id number] [id number]] Calculation Used for Recommendations [facility] Additional Notes Pro needs >1.2g/kg: >95g/day Fluid needs 1-1.5L/day Nutrition Intervention Follow-Up By: 01/27/22 Additional Comments F/U: MST screen, N/V, ONS need
[2022-01-27] MEDS: amLODIPine 10 MG TAB PO SCH (11:17)
[2022-01-27] MEDS: FAMOTIDINE 20 MG TAB PO SCH (11:17)
[2022-01-27] MEDS: carvediloL 25 MG TAB PO SCH ×2 (11:18→21:29)
[2022-01-27] MEDS: MINOXIDIL 2.5 MG TAB PO SCH ×2 (11:18→21:22)
[2022-01-27] MEDS: MELATONIN 5 MG TAB PO SCH (21:22)
[2022-01-27] MEDS: MORPHINE 2 MG/1 ML INJ IV PRN (21:22)
[2022-01-28] MEDS: MORPHINE 2 MG/1 ML INJ IV PRN ×2 (05:48→22:20)
[2022-01-28] MEDS: hydrALAZINE 25 MG TAB PO SCH ×3 (05:52→22:14)
[2022-01-28 06:24] LABS: Calcium 6.9 mg/dL (8.4-10.2)
[2022-01-28 06:27] LABS: Basophils % (Auto) 0.3 % (0.0-1.8); Eosinophils # (Auto) 0.2 K/mm3 (0.0-0.4); Eosinophils % (Auto) 2.6 % (0.0-4.3); Hematocrit 21.4 % (35.5-45.6); Hemoglobin 7.3 gm/dl (11.8-15.2); Lymphocytes # (Auto) 2.2 K/mm3 (1.2-5.4); Lymphocytes % (Auto) 25.9 % (13.4-35.0); Mean Corpuscular HGB Conc 34 % (32-34); Mean Corpuscular Volume 87 fl (84-94); Monocytes # (Auto) 1.1 K/mm3 (0.0-0.8); Monocytes % (Auto) 13.4 % (0.0-7.3); Platelet Count 262 K/mm3 (140-440); Red Blood Count 2.48 M/mm3 (3.65-5.03); Red Cell Distribution Width 14.2 % (13.2-15.2)
[2022-01-28] MEDS: ACETAMINOPHEN 325 MG TAB PO PRN (08:28)
[2022-01-28] MEDS: CALCIUM ACETATE 667 MG CAP PO SCH ×3 (08:28→17:22)
--- NOTE | 2022-01-28 08:44 | Progress Note ---
History Interval history: This is a 36-year-old male with known past medical history of HIV/AIDS, HTN, and possible medical noncompliance admitted for hypertensive emergency and acute on chronic renal failure #Hypertensive Emergency #Possible medical Noncompliance - Presented with SBP in the 200s, s/p Cardene gtt - Hypertensive this am, SBP back up in the 200s despite schedule meds and PRN Hydralazine - X1 dose of IV labetalol given, SBP improved in the 160s - Continue current antihypertensive regimen (Coreg and Amlodipine) - Minoxidil added for better BP control - Continue blood pressure monitor per protocol - PRN Hydralazine to maintain SBP less than 160 #Acute on Chronic Renal Failure #Hyponatremia - Presented with Scr. of 32.6 and Hyperkalemia - baseline renal function is unknown - Per patient, he was informed that he had renal insufficiency by PCP and needed to follow-up with telecommunications manager but has been unable to due to insurance issues - s/p IV Bumex and Bcarb gtt, - Patient remains nonoliguric - Nephrology on consult, appreciated recommendation - Strict intake and output - Avoid nephrotoxic medications; Renally dose medications - Monitor and replace electrolytes as needed #Nausea/Vomiting #Abdominal Pain-resolved #Poor PO intake - Presented with N/V, gen. weakness and fatige, elevated amylase and lipase - CT abd/pelvis shows no acute process in the abdomen or pelvis urinary tract calculi or hydronephrosis. Pancreatitis ruled out - PRN antiemetic for N/V - PRN Analgesia for pain control - Trend LFts, amylase, and lipase #H/o HIV/AIDS - Per patient viral load is undetectable - Patient admits noncompliance with meds. - ART on hold for now in the setting of worsen DAWSON. Reassess prior to discharge #Hyperglycemia - Continue BG check and SSI ACHS - Avoid Hypoglycemia #GI/DVT Prophylaxis - PPI- Pepcid - SCDs to bilateral lower extremities while in bed Hospital course to date: 01/20: Patient has been weaned off nicardipine since afternoon and restarted home amlodipine and Coreg, increase in coreg and IV hydral ordered. Transfer to [facility]. COVID-19 PCR pending. Patient currently refusing hemodialysis when informed that he may need hemodialysis but the decision will be made by the telecommunications manager. 01/21: Off cardene gtt since yesterday. Patient is hypertensive this am despite PRN IV Hydralazine. X1 dose IV labetall administered, SBP down in the 160s. Minoxidil added BID for better BP control. Renal function is unchanged, plan for iHD tomorrow per Nephro. Vascular Surgery consulted for permacath placement. NPO after midnight tonight for permacath placement. Plan of care discussed with patient at the bedside, all questions and concerns addressed at this time. D/W CCM patient is stable for transfer to the floor. 01/22: Blood pressure is much better controlled. IR to perform PermCath placement today. Nephrology to initiate hemodialysis after PermCath placement. CT of abdomen and pelvis revealing no hydronephrosis or obstructive uropathy. Patient has significant proteinuria on urine studies. Follow-up SPEP, serum free light chains, BLANCA, ANCA, Anti-GBM, C3, C4, Hep panel. D/C bicarb drip once start on hemodialysis. Continue to renally dose medications and avoid nephrotoxic agents. Strict I/O's daily 01/23: Patient is s/p PermCath placement for initiation of hemodialysis. Follow- up SPEP, serum free light chains, BLANCA, ANCA, Anti-GBM, C3, C4, Hep panel. Continue to renally dose medications and avoid nephrotoxic agents. Strict I/O's daily. Blood pressure remains better controlled. We will discuss with case management plans for outpatient hemodialysis chair 01/24: Nephrology reports patient with acute kidney injury superimposed on CKD versus progressive CKD or HIVAN. Patient with initiation of hemodialysis on 01/22. Follow-up SPEP, serum free light chains, BLANCA, ANCA, Anti-GBM, C3, C4. Hep panel was negative. Consented to HIV (DNA/RNA PCR) testing yesterday. Continue to renally dose medications and avoid nephrotoxic agents. Strict I/O's daily 01/25: Continue hemodialysis per nephrology recommendations. Follow-up SPEP, serum free light chains, BLANCA, ANCA, Anti-GBM, C3, C4. Continue to renally dose medications and avoid nephrotoxic agents. Strict I/O's daily. HIV meds on hold due to severe renal failure. Type and cross and transfuse 1 unit PRBCs for anemia 01/26: Continue hemodialysis per nephrology recommendations. Follow-up SPEP, serum free light chains, BLANCA, ANCA, Anti-GBM, C3, C4. Continue to renally dose medications and avoid nephrotoxic agents. Strict I/O's daily. HIV meds on hold due to severe renal failure. Type and cross and transfuse 1 unit PRBCs for anemia 01/27: Patient to resume hemodialysis in a.m. per nephrology. Patient with no signs of renal recovery thus far and will likely need outpatient hemodialysis placement. Case management with continuing efforts to obtain outpatient chair. Urine studies reviewed, calculated protein to cr ratio 3.6 g, nephrotic range proteinuria, no urine eosinophils. F/U SPEP, serum free light chains, BLANCA, ANCA, Anti-GBM, C3, C4. Hepatitis panel, C3, C4, free kappa/lambda ratio -> negative. Hemoglobin stable at 7.5 s/p 1 unit PRBCs. 01/28: Patient to undergo hemodialysis today. Patient with no signs of renal recovery thus far and will likely need outpatient hemodialysis placement. Case management with continuing efforts to obtain outpatient chair. F/U SPEP, serum free light chains, BLANCA, ANCA, Anti-GBM, C3, C4. Hepatitis panel, C3, C4, free kappa/lambda ratio -> negative. Hospitalist Physical - Constitutional Vitals: Temp Pulse Resp BP Pulse Ox 98.8 F 86 16 137/80 100 01/27/22 20:43 01/28/22 05:52 01/27/22 20:43 01/28/22 05:52 01/27/22 22:00 General appearance: Present: no acute distress, well-nourished Results - Labs CBC & Chem 7: 01/28/22 05:32 01/28/22 05:32 Labs: Laboratory Last Values WBC 8.3 K/mm3 (4.5-11.0) 01/28/22 05:32 RBC 2.48 M/mm3 (3.65-5.03) L 01/28/22 05:32 Hgb 7.3 gm/dl (11.8-15.2) L 01/28/22 05:32 Hct 21.4 % (35.5-45.6) L 01/28/22 05:32 MCV 87 fl (84-94) 01/28/22 05:32 MCH 29 pg (28-32) 01/28/22 05:32 MCHC 34 % (32-34) 01/28/22 05:32 RDW 14.2 % (13.2-15.2) 01/28/22 05:32 Plt Count 262 K/mm3 (140-440) 01/28/22 05:32 Lymph % (Auto) 25.9 % (13.4-35.0) 01/28/22 05:32 Lamb % (Auto) 13.4 % (0.0-7.3) H 01/28/22 05:32 Eos % (Auto) 2.6 % (0.0-4.3) 01/28/22 05:32 Baso % (Auto) 0.3 % (0.0-1.8) 01/28/22 05:32 Lymph # (Auto) 2.2 K/mm3 (1.2-5.4) 01/28/22 05:32 Lamb # (Auto) 1.1 K/mm3 (0.0-0.8) H 01/28/22 05:32 Eos # (Auto) 0.2 K/mm3 (0.0-0.4) 01/28/22 05:32 Baso # (Auto) 0.0 K/mm3 (0.0-0.1) 01/28/22 05:32 Add Manual Diff Complete 01/19/22 18:38 Total Counted 100 01/19/22 18:38 Seg Neutrophils % 57.8 % (40.0-70.0) 01/28/22 05:32 Seg Neuts % (Manual) 63.0 % (40.0-70.0) 01/19/22 18:38 Band Neutrophils % 0 % 01/19/22 18:38 Lymphocytes % (Manual) 33.0 % (13.4-35.0) 01/19/22 18:38 Reactive Lymphs % (Man) 0 % 01/19/22 18:38 Monocytes % (Manual) 1.0 % (0.0-7.3) 01/19/22 18:38 Eosinophils % (Manual) 2.0 % (0.0-4.3) 01/19/22 18:38 Basophils % (Manual) 1.0 % (0.0-1.8) 01/19/22 18:38 Metamyelocytes % 0 % 01/19/22 18:38 Myelocytes % 0 % 01/19/22 18:38 Promyelocytes % 0 % 01/19/22 18:38 Blast Cells % 0 % 01/19/22 18:38 Nucleated RBC % Not Reportable 01/19/22 18:38 Seg Neutrophils # 4.8 K/mm3 (1.8-7.7) 01/28/22 05:32 Seg Neutrophils # Man 4.5 K/mm3 (1.8-7.7) 01/19/22 18:38 Band Neutrophils # 0.0 K/mm3 01/19/22 18:38 Lymphocytes # (Manual) 2.4 K/mm3 (1.2-5.4) 01/19/22 18:38 Abs React Lymphs (Man) 0.0 K/mm3 01/19/22 18:38 Monocytes # (Manual) 0.1 K/mm3 (0.0-0.8) 01/19/22 18:38 Eosinophils # (Manual) 0.1 K/mm3 (0.0-0.4) 01/19/22 18:38 Basophils # (Manual) 0.1 K/mm3 (0.0-0.1) 01/19/22 18:38 Metamyelocytes # 0.0 K/mm3 01/19/22 18:38 Myelocytes # 0.0 K/mm3 01/19/22 18:38 Promyelocytes # 0.0 K/mm3 01/19/22 18:38 Blast Cells # 0.0 K/mm3 01/19/22 18:38 WBC Morphology Not Reportable 01/19/22 18:38 Hypersegmented Neuts Not Reportable 01/19/22 18:38 Hyposegmented Neuts Not Reportable 01/19/22 18:38 Hypogranular Neuts Not Reportable 01/19/22 18:38 Smudge Cells Not Reportable 01/19/22 18:38 Toxic Granulation Not Reportable 01/19/22 18:38 Toxic Vacuolation Not Reportable 01/19/22 18:38 Dohle Bodies Not Reportable 01/19/22 18:38 Pelger-Huet Anomaly Not Reportable 01/19/22 18:38 Kallie Rods Not Reportable 01/19/22 18:38 Platelet Estimate Consistent w auto 01/19/22 18:38 Clumped Platelets Not Reportable 01/19/22 18:38 Plt Clumps, EDTA Not Reportable 01/19/22 18:38 Large Platelets Not Reportable 01/19/22 18:38 Giant Platelets Not Reportable 01/19/22 18:38 Platelet Satelliting Not Reportable 01/19/22 18:38 Plt Morphology Comment Not Reportable 01/19/22 18:38 RBC Morphology Not Reportable 01/19/22 18:38 Dimorphic RBCs Not Reportable 01/19/22 18:38 Polychromasia Not Reportable 01/19/22 18:38 Hypochromasia Not Reportable 01/19/22 18:38 Poikilocytosis Not Reportable 01/19/22 18:38 Anisocytosis 1+ 01/19/22 18:38 Microcytosis Not Reportable 01/19/22 18:38 Macrocytosis Not Reportable 01/19/22 18:38 Spherocytes Not Reportable 01/19/22 18:38 Pappenheimer Bodies Not Reportable 01/19/22 18:38 Sickle Cells Not Reportable 01/19/22 18:38 Target Cells Not Reportable 01/19/22 18:38 Tear Drop Cells Not Reportable 01/19/22 18:38 Ovalocytes Not Reportable 01/19/22 18:38 Helmet Cells Not Reportable 01/19/22 18:38 Santam[place] Bodies Not Reportable 01/19/22 18:38 [place] Rings Not Reportable 01/19/22 18:38 Sonido Cells Not Reportable 01/19/22 18:38 Bite Cells Not Reportable 01/19/22 18:38 Crenated Cell Not Reportable 01/19/22 18:38 Elliptocytes Not Reportable 01/19/22 18:38 Acanthocytes (Spur) Not Reportable 01/19/22 18:38 Rouleaux Not Reportable 01/19/22 18:38 Hemoglobin C Crystals Not Reportable 01/19/22 18:38 Schistocytes Not Reportable 01/19/22 18:38 Malaria parasites Not Reportable 01/19/22 18:38 Edgardo Bodies Not Reportable 01/19/22 18:38 Hem Pathologist Commnt No 01/19/22 18:38 Sodium 135 mmol/L (137-145) L 01/28/22 05:32 Potassium 3.7 mmol/L (3.6-5.0) 01/28/22 05:32 Chloride 94.9 mmol/L (98-107) L 01/28/22 05:32 Carbon Dioxide 26 mmol/L (22-30) 01/28/22 05:32 Anion Gap 18 mmol/L 01/28/22 05:32 BUN 50 mg/dL (9-20) H 01/28/22 05:32 Creatinine 11.2 mg/dL (0.8-1.3) H 01/28/22 05:32 Estimated GFR 6 ml/min 01/28/22 05:32 BUN/Creatinine Ratio 4 % 01/28/22 05:32 Glucose 88 mg/dL (75-100) 01/28/22 05:32 POC Glucose 142 mg/dL (70-105) H 01/21/22 11:41 Calcium 6.9 mg/dL (8.4-10.2) L 01/28/22 05:32 Phosphorus 4.70 mg/dL (2.5-4.5) H 01/28/22 05:32 Magnesium 2.10 mg/dL (1.7-2.3) 01/22/22 04:49 Iron 61 ug/dL (49-181) 01/23/22 05:53 TIBC 148 mcg/dL (250-450) L 01/23/22 05:53 Total Bilirubin 0.40 mg/dL (0.1-1.2) 01/22/22 04:49 AST 21 units/L (5-40) 01/22/22 04:49 ALT 23 units/L (7-56) 01/22/22 04:49 Alkaline Phosphatase 88 units/L (35-129) 01/22/22 04:49 Total Creatine Kinase 690 units/L (55-170) H 01/20/22 11:23 Total Protein 6.5 g/dL (6.3-8.2) D 01/22/22 04:49 Albumin 3.7 g/dL (3.9-5) L 01/22/22 04:49 Albumin/Globulin Ratio 1.3 % 01/22/22 04:49 Amylase 223 units/L (27-131) H 01/22/22 04:49 Lipase 164 units/L (13-60) H 01/22/22 04:49 PTH Intact 443.7 pg/mL (15-65) H 01/20/22 11:38 Urine Color Yellow (Yellow) 01/19/22 Unknown Urine Turbidity Slightly cloudy (Clear) 01/19/22 Unknown Urine pH 6.0 (5.0-7.0) 01/19/22 Unknown Ur Specific [place] 1.025 (1.003-1.030) 01/19/22 Unknown Urine Protein 100 mg/dl mg/dL (Negative) 01/19/22 Unknown Urine Glucose (UA) Negative mg/dL (Negative) 01/19/22 Unknown Urine Ketones Negative mg/dL (Negative) 01/19/22 Unknown Urine Blood Trace (Negative) 01/19/22 Unknown Urine Nitrite Negative (Negative) 01/19/22 Unknown Ur Reducing Substances Not Reportable 01/19/22 Unknown Urine Bilirubin Negative (Negative) 01/19/22 Unknown Urine Ictotest Not Reportable 01/19/22 Unknown Urine Urobilinogen 2.0 mg/dL (<2.0) 01/19/22 Unknown Ur Leukocyte Esterase Negative (Negative) 01/19/22 Unknown Urine WBC (Auto) 4.0 /HPF (0.0-6.0) 01/19/22 Unknown Urine RBC (Auto) 2.0 /HPF (0.0-6.0) 01/19/22 Unknown U Epithel Cells (Auto) 2.0 /HPF (0-13.0) 01/19/22 Unknown Urine Bacteria (Auto) 1+ /HPF (Negative) 01/19/22 Unknown Urine Eosinophils None seen (None Seen) 01/20/22 15:30 Urine Creatinine 64.2 mg/dL (0.1-20.0) H 01/20/22 15:30 Protein/Creatinin Ratio 3.60 01/20/22 15:30 Urine Sodium 83 mmol/L 01/20/22 15:30 Urine Total Protein 231 mg/dL (5-11.8) H 01/20/22 15:30 Complement C3 116 mg/dL (82-185) 01/22/22 04:49 Complement C4 33 mg/dL (15-53) 01/22/22 04:49 Coronavirus (PCR) Negative (Negative) 01/20/22 05:28 Hepatitis A IgM Ab Non-reactive (NonReactive) 01/21/22 04:51 Hep Bs Antigen Non-reactive (Negative) 01/21/22 04:51 Hep B Core IgM Ab Non-reactive (NonReactive) 01/21/22 04:51 Hepatitis C Antibody Non-reactive (NonReactive) 01/21/22 04:51 HIV-1 RNA PCR copies/ml <20 Copies/mL H 01/24/22 07:15 HIV-1 RNA (PCR) log <1.30 Log cps/mL H 01/24/22 07:15 Miscellaneous Test Flexitest 1 H 01/22/22 04:49 Blood Type O POSITIVE 01/26/22 00:08 Antibody Screen Negative 01/26/22 00:08 Crossmatch See Detail 01/26/22 00:08 Kiran/IV: Voiding Method Toilet Active Medications - Current Medications Current Medications: Generic Name Dose Route Start Last Admin Trade Name Freq PRN Reason Stop Dose Admin Acetaminophen 650 mg 01/19/22 22:50 01/28/22 08:28 Acetaminophen 325 Mg Tab PO 650 mg Q4H PRN Administration Pain MILD(1-3)/Fever >100.5/OSCAR Amlodipine Besylate 10 mg 01/20/22 10:00 01/27/22 11:17 Amlodipine 10 Mg Tab PO 10 mg QDAY JENNY Administration Calcium Acetate 667 mg 01/21/22 17:00 01/28/22 08:28 Calcium Acetate 667 Mg Cap PO 667 mg TIDWM JENNY Administration Carvedilol 25 mg 01/20/22 22:00 01/27/22 21:29 Carvedilol 25 Mg Tab PO 25 mg BID JENNY Administration Dextrose 50 ml 01/20/22 13:29 Dextrose 50% In Water (25gm) 50 Ml Syringe IV Q30MIN PRN Hypoglycemia Protocol Famotidine 20 mg 01/22/22 10:00 01/27/22 11:17 Famotidine 20 Mg Tab PO 20 mg QDAY JENNY Administration Hydralazine HCl 25 mg 01/23/22 22:00 01/28/22 05:52 Hydralazine 25 Mg Tab PO 25 mg Q8HR JENNY Administration Sodium Chloride 100 mls @ 999 mls/hr 01/27/22 08:23 Nacl 0.9% IV AUTUMN PRN Hypotension Melatonin 5 mg 01/21/22 22:00 01/27/22 21:22 Melatonin 5 Mg Tab PO 5 mg QHS JENNY Administration Minoxidil 5 mg 01/21/22 11:00 01/27/22 21:22 Minoxidil 2.5 Mg Tab PO 5 mg BID JENNY Administration Morphine Sulfate 2 mg 01/19/22 22:50 01/28/22 05:48 Morphine 2 Mg/1 Ml Inj IV 2 mg Q4H PRN Administration Pain, Moderate (4-6) Ondansetron HCl 4 mg 01/19/22 22:50 01/22/22 15:58 Ondansetron 4 Mg/2 Ml Inj IV 4 mg Q8H PRN Administration Nausea And Vomiting Sodium Chloride 10 ml 01/20/22 10:00 01/27/22 21:29 Sodium Chloride 0.9% 10 Ml Flush Syringe IV 10 ml BID JENNY Administration Sodium Chloride 10 ml 01/19/22 22:50 01/26/22 21:40 Sodium Chloride 0.9% 10 Ml Flush Syringe IV 10 ml PRN PRN Administration LINE FLUSH Nutrition/Malnutrition Assess - Dietary Evaluation Nutrition/Malnutrition Findings: Nutrition Notes Start: 01/25/22 12:30 Freq: Status: Active Protocol: Document 01/27/22 12:56 MISSY (Rec: 01/27/22 13:00 MISSY [email or web address]) Nutrition Notes Initial or Follow up Brief Note Usual Body Weight 86.36 kg Weight change and time frame Pt reports 7.9% unintentional wt loss over past few wks Subjective/Other Information Spoke with pt via phone. He reports no N/V at this time and says appetite is "picking up". He denies need for ONS at this time. Nutrition Intervention Follow-Up By: 02/01/22 Additional Comments F/U: intakes, wt
[2022-01-28 09:12] LABS: ANA Screen, IFA Positive (Negative); Albumin 3.3 g/dL (3.8-4.8)
--- NOTE | 2022-01-28 12:16 | Progress Note ---
Assessment and Plan Assessment: Acute Kidney injury on top of CKD vs Progressive CKD, Could have HIVAN, requring dialysis initiation: S/P Hyperkalemia: Metabolic acidosis: HIV: Hypertension: Nausea and vomitinHPT from CKD: Hyperphosphatemia Plan: -Hemodialysis today for UF and clearance, will place on M,W,F schedule -S/P perm-catheter placement and first hemodialysis session on 01/22/22 -CT of Abdomen and Pelvis-No hydronephrosis -Urine studies reviewed, has proteinuria. -Hepatitis panel, C3, C4, free kappa/lambda ratio -> negative. -HIV 1 RNA PCR copies/ml was < 20 and HIV 1 RNA PCR log was < 1.30 -HIV meds on hold due to severe renal failure -Hyperphosphatemia-on Phoslo 667 mg po TID with meals -Renally dose all medications -Avoid Nephrotoxic agents -PTH high signalling 2HPT from CKD -Strict I/O's daily -Obtain daily weights -Monitor renal function closely -Assess dialysis needs daily -No signs of renal recovery so far, Consulted CM for OP HD placement -Plan of care reviewed by Dr. Rodriguez Subjective Date of service: 01/28/22 Principal diagnosis: Severe renal failure Interval history: Patient seen in dialysis unit. Tolerating HD well. Reviewed renal labs. Objective - Vital Signs Vital signs: Vital Signs - 12hr 01/28/22 01/28/22 01/28/22 05:52 09:25 09:30 Temperature 98.3 F Pulse Rate 86 88 84 Respiratory 18 Rate Blood Pressure 137/80 142/78 142/81 O2 Sat by Pulse 100 Oximetry [ Bilateral Throughout] 01/28/22 01/28/22 01/28/22 09:45 10:00 10:15 Temperature Pulse Rate 81 80 78 Respiratory Rate Blood Pressure 154/80 138/83 145/74 O2 Sat by Pulse Oximetry [ Bilateral Throughout] 01/28/22 01/28/22 01/28/22 10:30 10:45 11:00 Temperature Pulse Rate 77 85 79 Respiratory Rate Blood Pressure 146/84 157/81 146/89 O2 Sat by Pulse Oximetry [ Bilateral Throughout] - General Appearance General appearance: well-developed, appears stated age EENT: ATNC, PERRL, hearing intact, vision intact Neck: no JVD, supple Respiratory: Present: Decreased Breath Sounds Cardiology: S1S2 Gastrointestinal: normoactive bowel sounds Integumentary: warm and dry Neurologic: alert and oriented x3 Musculoskeletal: joint swelling - Lab 01/28/22 05:32 01/28/22 05:32 Most recent lab results Calcium 6.9 mg/dL (8.4-10.2) L 01/28/22 05:32 Phosphorus 4.70 mg/dL (2.5-4.5) H 01/28/22 05:32 Magnesium 2.10 mg/dL (1.7-2.3) 01/22/22 04:49 Urine Creatinine 64.2 mg/dL (0.1-20.0) H 01/20/22 15:30 Urine Sodium 83 mmol/L 01/20/22 15:30 Urine Total Protein 231 mg/dL (5-11.8) H 01/20/22 15:30 Medications & Allergies - Medications Allergies/Adverse Reactions: Allergies No Known Allergies Allergy (Verified 01/24/22 08:49) Home Medications: Home Medications Medication Instructions Recorded Confirmed Last Taken Type Calcium Carbonate [Calcium Antacid] 300 mg PO TID 01/23/22 01/24/22 Unknown History Dolutegravir [Tivicay] 50 mg PO DAILY 01/23/22 01/24/22 Unknown History Sodium Bicarbonate 1,300 mg PO TID 01/23/22 01/24/22 Unknown History amLODIPine [Norvasc] 10 mg PO DAILY 01/23/22 01/24/22 Unknown History carvediloL [Coreg] 12.5 mg PO BID 01/23/22 01/24/22 Unknown History Abacavir Sulfate/Lamivudine 1 each PO QDAY 01/24/22 01/24/22 Unknown History [Abacavir-Lamivudine 600-300 mg] Active Medications: Generic Name Dose Route Start Last Admin Trade Name Freq PRN Reason Stop Dose Admin Acetaminophen 650 mg 01/19/22 22:50 01/28/22 08:28 Acetaminophen 325 Mg Tab PO 650 mg Q4H PRN Administration Pain MILD(1-3)/Fever >100.5/OSCAR Amlodipine Besylate 10 mg 01/20/22 10:00 01/27/22 11:17 Amlodipine 10 Mg Tab PO 10 mg QDAY JENNY Administration Calcium Acetate 667 mg 01/21/22 17:00 01/28/22 08:28 Calcium Acetate 667 Mg Cap PO 667 mg TIDWM JENNY Administration Carvedilol 25 mg 01/20/22 22:00 01/27/22 21:29 Carvedilol 25 Mg Tab PO 25 mg BID JENNY Administration Dextrose 50 ml 01/20/22 13:29 Dextrose 50% In Water (25gm) 50 Ml Syringe IV Q30MIN PRN Hypoglycemia Protocol Famotidine 20 mg 01/22/22 10:00 01/27/22 11:17 Famotidine 20 Mg Tab PO 20 mg QDAY JENNY Administration Hydralazine HCl 25 mg 01/23/22 22:00 01/28/22 05:52 Hydralazine 25 Mg Tab PO 25 mg Q8HR JENNY Administration Sodium Chloride 100 mls @ 999 mls/hr 01/27/22 08:23 Nacl 0.9% IV AUTUMN PRN Hypotension Melatonin 5 mg 01/21/22 22:00 01/27/22 21:22 Melatonin 5 Mg Tab PO 5 mg QHS JENNY Administration Minoxidil 5 mg 01/21/22 11:00 01/27/22 21:22 Minoxidil 2.5 Mg Tab PO 5 mg BID JENNY Administration Morphine Sulfate 2 mg 01/19/22 22:50 01/28/22 05:48 Morphine 2 Mg/1 Ml Inj IV 2 mg Q4H PRN Administration Pain, Moderate (4-6) Ondansetron HCl 4 mg 01/19/22 22:50 01/22/22 15:58 Ondansetron 4 Mg/2 Ml Inj IV 4 mg Q8H PRN Administration Nausea And Vomiting Sodium Chloride 10 ml 01/20/22 10:00 01/27/22 21:29 Sodium Chloride 0.9% 10 Ml Flush Syringe IV 10 ml BID JENNY Administration Sodium Chloride 10 ml 01/19/22 22:50 01/26/22 21:40 Sodium Chloride 0.9% 10 Ml Flush Syringe IV 10 ml PRN PRN Administration LINE FLUSH
[2022-01-28] MEDS: MINOXIDIL 2.5 MG TAB PO SCH ×2 (13:36→22:15)
[2022-01-28] MEDS: amLODIPine 10 MG TAB PO SCH (13:36)
[2022-01-28] MEDS: FAMOTIDINE 20 MG TAB PO SCH (13:37)
[2022-01-28] MEDS: carvediloL 25 MG TAB PO SCH ×2 (13:37→22:14)
[2022-01-28 21:13] LABS: Myeloperoxidase Antibody <1.0 AI (<1.0)
[2022-01-28] MEDS: MELATONIN 5 MG TAB PO SCH (22:15)
[2022-01-29] MEDS: hydrALAZINE 25 MG TAB PO SCH ×3 (06:09→22:58)
[2022-01-29 06:22] LABS: Basophils % (Auto) 0.5 % (0.0-1.8); Eosinophils # (Auto) 0.1 K/mm3 (0.0-0.4); Eosinophils % (Auto) 1.8 % (0.0-4.3); Hematocrit 24.1 % (35.5-45.6); Hemoglobin 8.1 gm/dl (11.8-15.2); Lymphocytes # (Auto) 1.8 K/mm3 (1.2-5.4); Lymphocytes % (Auto) 24.4 % (13.4-35.0); Mean Corpuscular HGB Conc 34 % (32-34); Mean Corpuscular Volume 88 fl (84-94); Monocytes # (Auto) 0.9 K/mm3 (0.0-0.8); Platelet Count 281 K/mm3 (140-440); Red Blood Count 2.76 M/mm3 (3.65-5.03)
[2022-01-29 06:34] LABS: Calcium 7.7 mg/dL (8.4-10.2)
[2022-01-29] MEDS: amLODIPine 10 MG TAB PO SCH (09:15)
[2022-01-29] MEDS: CALCIUM ACETATE 667 MG CAP PO SCH ×3 (09:15→16:55)
[2022-01-29] MEDS: FAMOTIDINE 20 MG TAB PO SCH (09:15)
[2022-01-29] MEDS: carvediloL 25 MG TAB PO SCH ×2 (09:20→22:57)
[2022-01-29] MEDS: MINOXIDIL 2.5 MG TAB PO SCH ×2 (09:22→22:57)
--- NOTE | 2022-01-29 09:44 | Progress Note ---
Assessment and Plan Assessment and plan: This is a 36-year-old male with known past medical history of HIV/AIDS, HTN, and possible medical noncompliance admitted for hypertensive emergency and acute on chronic renal failure #Hypertensive Emergency #Possible medical Noncompliance - Presented with SBP in the 200s, s/p Cardene gtt - Hypertensive this am, SBP back up in the 200s despite schedule meds and PRN Hydralazine - X1 dose of IV labetalol given, SBP improved in the 160s - Continue current antihypertensive regimen (Coreg and Amlodipine) - Minoxidil added for better BP control - Continue blood pressure monitor per protocol - PRN Hydralazine to maintain SBP less than 160 #Acute on Chronic Renal Failure #Hyponatremia - Presented with Scr. of 32.6 and Hyperkalemia - baseline renal function is unknown - Per patient, he was informed that he had renal insufficiency by PCP and needed to follow-up with road inspector but has been unable to due to insurance issues - s/p IV Bumex and Bcarb gtt, - Patient remains nonoliguric - Nephrology on consult, appreciated recommendation - Strict intake and output - Avoid nephrotoxic medications; Renally dose medications - Monitor and replace electrolytes as needed #Nausea/Vomiting #Abdominal Pain-resolved #Poor PO intake - Presented with N/V, gen. weakness and fatige, elevated amylase and lipase - CT abd/pelvis shows no acute process in the abdomen or pelvis urinary tract calculi or hydronephrosis. Pancreatitis ruled out - PRN antiemetic for N/V - PRN Analgesia for pain control - Trend LFts, amylase, and lipase #H/o HIV/AIDS - Per patient viral load is undetectable - Patient admits noncompliance with meds. - ART on hold for now in the setting of worsen DAWSON. Reassess prior to discharge #Hyperglycemia - Continue BG check and SSI ACHS - Avoid Hypoglycemia #GI/DVT Prophylaxis - PPI- Pepcid - SCDs to bilateral lower extremities while in bed Hospital course to date: 01/20: Patient has been weaned off nicardipine since afternoon and restarted home amlodipine and Coreg, increase in coreg and IV hydral ordered. Transfer to [facility]. COVID-19 PCR pending. Patient currently refusing hemodialysis when informed that he may need hemodialysis but the decision will be made by the road inspector. 01/21: Off cardene gtt since yesterday. Patient is hypertensive this am despite PRN IV Hydralazine. X1 dose IV labetall administered, SBP down in the 160s. Minoxidil added BID for better BP control. Renal function is unchanged, plan for iHD tomorrow per Nephro. Vascular Surgery consulted for permacath placement. NPO after midnight tonight for permacath placement. Plan of care discussed with patient at the bedside, all questions and concerns addressed at this time. D/W CCM patient is stable for transfer to the floor. 01/22: Blood pressure is much better controlled. IR to perform PermCath placement today. Nephrology to initiate hemodialysis after PermCath placement. CT of abdomen and pelvis revealing no hydronephrosis or obstructive uropathy. Patient has significant proteinuria on urine studies. Follow-up SPEP, serum free light chains, BLANCA, ANCA, Anti-GBM, C3, C4, Hep panel. D/C bicarb drip once start on hemodialysis. Continue to renally dose medications and avoid nephrotoxic agents. Strict I/O's daily 01/23: Patient is s/p PermCath placement for initiation of hemodialysis. Follow- up SPEP, serum free light chains, BLANCA, ANCA, Anti-GBM, C3, C4, Hep panel. Continue to renally dose medications and avoid nephrotoxic agents. Strict I/O's daily. Blood pressure remains better controlled. We will discuss with case management plans for outpatient hemodialysis chair 01/24: Nephrology reports patient with acute kidney injury superimposed on CKD versus progressive CKD or HIVAN. Patient with initiation of hemodialysis on 01/22. Follow-up SPEP, serum free light chains, BLANCA, ANCA, Anti-GBM, C3, C4. Hep panel was negative. Consented to HIV (DNA/RNA PCR) testing yesterday. Continue to renally dose medications and avoid nephrotoxic agents. Strict I/O's daily 01/25: Continue hemodialysis per nephrology recommendations. Follow-up SPEP, serum free light chains, BLANCA, ANCA, Anti-GBM, C3, C4. Continue to renally dose medications and avoid nephrotoxic agents. Strict I/O's daily. HIV meds on hold due to severe renal failure. Type and cross and transfuse 1 unit PRBCs for anemia 01/26: Continue hemodialysis per nephrology recommendations. Follow-up SPEP, serum free light chains, BLANCA, ANCA, Anti-GBM, C3, C4. Continue to renally dose medications and avoid nephrotoxic agents. Strict I/O's daily. HIV meds on hold due to severe renal failure. Type and cross and transfuse 1 unit PRBCs for anemia 01/27: Patient to resume hemodialysis in a.m. per nephrology. Patient with no signs of renal recovery thus far and will likely need outpatient hemodialysis placement. Case management with continuing efforts to obtain outpatient chair. Urine studies reviewed, calculated protein to cr ratio 3.6 g, nephrotic range proteinuria, no urine eosinophils. F/U SPEP, serum free light chains, BLANCA, ANCA, Anti-GBM, C3, C4. Hepatitis panel, C3, C4, free kappa/lambda ratio -> negative. Hemoglobin stable at 7.5 s/p 1 unit PRBCs. 01/28: Patient to undergo hemodialysis today. Patient with no signs of renal recovery thus far and will likely need outpatient hemodialysis placement. Case management with continuing efforts to obtain outpatient chair. F/U SPEP, serum free light chains, BLANCA, ANCA, Anti-GBM, C3, C4. Hepatitis panel, C3, C4, free kappa/lambda ratio -> negative. 01/29; awaiting outpatient HD placement History Interval history: I have seen and examined the patient at the bedside Patient's chart and medications reviewed Patient feels better Compliant with dialysis Awaiting outpatient HD placement Vital signs noted Hospitalist Physical - Constitutional Vitals: Temp Pulse Resp BP Pulse Ox 98.6 F 83 17 116/60 99 01/28/22 22:10 01/29/22 09:20 01/28/22 22:10 01/29/22 09:20 01/28/22 22:10 General appearance: Present: no acute distress, well-nourished - EENT Eyes: Present: PERRL, EOM intact - Neck Neck: Present: supple, normal ROM - Respiratory Respiratory effort: normal Respiratory: bilateral: diminished, negative: rales, rhonchi, wheezing - Cardiovascular Rhythm: regular Heart Sounds: Present: S1 & S2 - Extremities Extremities: no ischemia, No edema - Abdominal General gastrointestinal: soft, non-tender, non-distended, normal bowel sounds - Integumentary Integumentary: Present: clear, warm - Psychiatric Psychiatric: appropriate mood/affect, cooperative - Neurologic Neurologic: CNII-XII intact, moves all extremities Results - Labs CBC & Chem 7: 01/29/22 05:57 01/29/22 05:57 Labs: Laboratory Last Values WBC 7.5 K/mm3 (4.5-11.0) 01/29/22 05:57 RBC 2.76 M/mm3 (3.65-5.03) L 01/29/22 05:57 Hgb 8.1 gm/dl (11.8-15.2) L 01/29/22 05:57 Hct 24.1 % (35.5-45.6) L 01/29/22 05:57 MCV 88 fl (84-94) 01/29/22 05:57 MCH 30 pg (28-32) 01/29/22 05:57 MCHC 34 % (32-34) 01/29/22 05:57 RDW 14.0 % (13.2-15.2) 01/29/22 05:57 Plt Count 281 K/mm3 (140-440) 01/29/22 05:57 Lymph % (Auto) 24.4 % (13.4-35.0) 01/29/22 05:57 Love % (Auto) 12.0 % (0.0-7.3) H 01/29/22 05:57 Eos % (Auto) 1.8 % (0.0-4.3) 01/29/22 05:57 Baso % (Auto) 0.5 % (0.0-1.8) 01/29/22 05:57 Lymph # (Auto) 1.8 K/mm3 (1.2-5.4) 01/29/22 05:57 Love # (Auto) 0.9 K/mm3 (0.0-0.8) H 01/29/22 05:57 Eos # (Auto) 0.1 K/mm3 (0.0-0.4) 01/29/22 05:57 Baso # (Auto) 0.0 K/mm3 (0.0-0.1) 01/29/22 05:57 Add Manual Diff Complete 01/19/22 18:38 Total Counted 100 01/19/22 18:38 Seg Neutrophils % 61.3 % (40.0-70.0) 01/29/22 05:57 Seg Neuts % (Manual) 63.0 % (40.0-70.0) 01/19/22 18:38 Band Neutrophils % 0 % 01/19/22 18:38 Lymphocytes % (Manual) 33.0 % (13.4-35.0) 01/19/22 18:38 Reactive Lymphs % (Man) 0 % 01/19/22 18:38 Monocytes % (Manual) 1.0 % (0.0-7.3) 01/19/22 18:38 Eosinophils % (Manual) 2.0 % (0.0-4.3) 01/19/22 18:38 Basophils % (Manual) 1.0 % (0.0-1.8) 01/19/22 18:38 Metamyelocytes % 0 % 01/19/22 18:38 Myelocytes % 0 % 01/19/22 18:38 Promyelocytes % 0 % 01/19/22 18:38 Blast Cells % 0 % 01/19/22 18:38 Nucleated RBC % Not Reportable 01/19/22 18:38 Seg Neutrophils # 4.6 K/mm3 (1.8-7.7) 01/29/22 05:57 Seg Neutrophils # Man 4.5 K/mm3 (1.8-7.7) 01/19/22 18:38 Band Neutrophils # 0.0 K/mm3 01/19/22 18:38 Lymphocytes # (Manual) 2.4 K/mm3 (1.2-5.4) 01/19/22 18:38 Abs React Lymphs (Man) 0.0 K/mm3 01/19/22 18:38 Monocytes # (Manual) 0.1 K/mm3 (0.0-0.8) 01/19/22 18:38 Eosinophils # (Manual) 0.1 K/mm3 (0.0-0.4) 01/19/22 18:38 Basophils # (Manual) 0.1 K/mm3 (0.0-0.1) 01/19/22 18:38 Metamyelocytes # 0.0 K/mm3 01/19/22 18:38 Myelocytes # 0.0 K/mm3 01/19/22 18:38 Promyelocytes # 0.0 K/mm3 01/19/22 18:38 Blast Cells # 0.0 K/mm3 01/19/22 18:38 WBC Morphology Not Reportable 01/19/22 18:38 Hypersegmented Neuts Not Reportable 01/19/22 18:38 Hyposegmented Neuts Not Reportable 01/19/22 18:38 Hypogranular Neuts Not Reportable 01/19/22 18:38 Smudge Cells Not Reportable 01/19/22 18:38 Toxic Granulation Not Reportable 01/19/22 18:38 Toxic Vacuolation Not Reportable 01/19/22 18:38 Dohle Bodies Not Reportable 01/19/22 18:38 Pelger-Huet Anomaly Not Reportable 01/19/22 18:38 Kallie Rods Not Reportable 01/19/22 18:38 Platelet Estimate Consistent w auto 01/19/22 18:38 Clumped Platelets Not Reportable 01/19/22 18:38 Plt Clumps, EDTA Not Reportable 01/19/22 18:38 Large Platelets Not Reportable 01/19/22 18:38 Giant Platelets Not Reportable 01/19/22 18:38 Platelet Satelliting Not Reportable 01/19/22 18:38 Plt Morphology Comment Not Reportable 01/19/22 18:38 RBC Morphology Not Reportable 01/19/22 18:38 Dimorphic RBCs Not Reportable 01/19/22 18:38 Polychromasia Not Reportable 01/19/22 18:38 Hypochromasia Not Reportable 01/19/22 18:38 Poikilocytosis Not Reportable 01/19/22 18:38 Anisocytosis 1+ 01/19/22 18:38 Microcytosis Not Reportable 01/19/22 18:38 Macrocytosis Not Reportable 01/19/22 18:38 Spherocytes Not Reportable 01/19/22 18:38 Pappenheimer Bodies Not Reportable 01/19/22 18:38 Sickle Cells Not Reportable 01/19/22 18:38 Target Cells Not Reportable 01/19/22 18:38 Tear Drop Cells Not Reportable 01/19/22 18:38 Ovalocytes Not Reportable 01/19/22 18:38 Helmet Cells Not Reportable 01/19/22 18:38 Santamaria-Truro Bodies Not Reportable 01/19/22 18:38 Banks Rings Not Reportable 01/19/22 18:38 [place] Cells Not Reportable 01/19/22 18:38 Bite Cells Not Reportable 01/19/22 18:38 Crenated Cell Not Reportable 01/19/22 18:38 Elliptocytes Not Reportable 01/19/22 18:38 Acanthocytes (Spur) Not Reportable 01/19/22 18:38 Rouleaux Not Reportable 01/19/22 18:38 Hemoglobin C Crystals Not Reportable 01/19/22 18:38 Schistocytes Not Reportable 01/19/22 18:38 Malaria parasites Not Reportable 01/19/22 18:38 Edgardo Bodies Not Reportable 01/19/22 18:38 Hem Pathologist Commnt No 01/19/22 18:38 Sodium 136 mmol/L (137-145) L 01/29/22 05:57 Potassium 3.9 mmol/L (3.6-5.0) 01/29/22 05:57 Chloride 95.8 mmol/L (98-107) L 01/29/22 05:57 Carbon Dioxide 28 mmol/L (22-30) 01/29/22 05:57 Anion Gap 16 mmol/L 01/29/22 05:57 BUN 25 mg/dL (9-20) H 01/29/22 05:57 Creatinine 7.3 mg/dL (0.8-1.3) H 01/29/22 05:57 Estimated GFR 10 ml/min 01/29/22 05:57 BUN/Creatinine Ratio 3 % 01/29/22 05:57 Glucose 96 mg/dL (75-100) 01/29/22 05:57 POC Glucose 142 mg/dL (70-105) H 01/21/22 11:41 Calcium 7.7 mg/dL (8.4-10.2) L 01/29/22 05:57 Phosphorus 4.70 mg/dL (2.5-4.5) H 01/28/22 05:32 Magnesium 2.10 mg/dL (1.7-2.3) 01/22/22 04:49 Iron 61 ug/dL (49-181) 01/23/22 05:53 TIBC 148 mcg/dL (250-450) L 01/23/22 05:53 Total Bilirubin 0.40 mg/dL (0.1-1.2) 01/22/22 04:49 AST 21 units/L (5-40) 01/22/22 04:49 ALT 23 units/L (7-56) 01/22/22 04:49 Alkaline Phosphatase 88 units/L (35-129) 01/22/22 04:49 Total Creatine Kinase 690 units/L (55-170) H 01/20/22 11:23 Serum Total Protein 6.2 g/dL (6.1-8.1) 01/22/22 04:49 Total Protein 6.5 g/dL (6.3-8.2) D 01/22/22 04:49 Albumin 3.3 g/dL (3.8-4.8) L 01/22/22 04:49 Albumin 3.7 g/dL (3.9-5) L 01/22/22 04:49 Albumin/Globulin Ratio 1.3 % 01/22/22 04:49 Vjfeg-1-Udqmtwphj 0.5 g/dL (0.2-0.3) H 01/22/22 04:49 Urkkj-4-Lqjogoxlx 0.7 g/dL (0.5-0.9) 01/22/22 04:49 Beta Globulins 0.4 g/dL (0.2-0.5) 01/22/22 04:49 Gamma Globulins 1.0 g/dL (0.8-1.7) 01/22/22 04:49 Abnorm Protein Band 1 see below 01/22/22 04:49 PEP Interpretation see below H 01/22/22 04:49 Amylase 223 units/L (27-131) H 01/22/22 04:49 Lipase 164 units/L (13-60) H 01/22/22 04:49 PTH Intact 443.7 pg/mL (15-65) H 01/20/22 11:38 Urine Color Yellow (Yellow) 01/19/22 Unknown Urine Turbidity Slightly cloudy (Clear) 01/19/22 Unknown Urine pH 6.0 (5.0-7.0) 01/19/22 Unknown Ur Specific Mck[place] 1.025 (1.003-1.030) 01/19/22 Unknown Urine Protein 100 mg/dl mg/dL (Negative) 01/19/22 Unknown Urine Glucose (UA) Negative mg/dL (Negative) 01/19/22 Unknown Urine Ketones Negative mg/dL (Negative) 01/19/22 Unknown Urine Blood Trace (Negative) 01/19/22 Unknown Urine Nitrite Negative (Negative) 01/19/22 Unknown Ur Reducing Substances Not Reportable 01/19/22 Unknown Urine Bilirubin Negative (Negative) 01/19/22 Unknown Urine Ictotest Not Reportable 01/19/22 Unknown Urine Urobilinogen 2.0 mg/dL (<2.0) 01/19/22 Unknown Ur Leukocyte Esterase Negative (Negative) 01/19/22 Unknown Urine WBC (Auto) 4.0 /HPF (0.0-6.0) 01/19/22 Unknown Urine RBC (Auto) 2.0 /HPF (0.0-6.0) 01/19/22 Unknown U Epithel Cells (Auto) 2.0 /HPF (0-13.0) 01/19/22 Unknown Urine Bacteria (Auto) 1+ /HPF (Negative) 01/19/22 Unknown Urine Eosinophils None seen (None Seen) 01/20/22 15:30 Urine Creatinine 64.2 mg/dL (0.1-20.0) H 01/20/22 15:30 Protein/Creatinin Ratio 3.60 01/20/22 15:30 Urine Sodium 83 mmol/L 01/20/22 15:30 Urine Total Protein 231 mg/dL (5-11.8) H 01/20/22 15:30 BLANCA Screen Positive (Negative) H 01/22/22 04:49 Proteinase 3 (PR3) Ab <1.0 AI (<1.0) 01/22/22 04:49 Myeloperoxidase Ab <1.0 AI (<1.0) 01/22/22 04:49 Complement C3 116 mg/dL (82-185) 01/22/22 04:49 Complement C4 33 mg/dL (15-53) 01/22/22 04:49 Coronavirus (PCR) Negative (Negative) 01/20/22 05:28 Hepatitis A IgM Ab Non-reactive (NonReactive) 01/21/22 04:51 Hep Bs Antigen Non-reactive (Negative) 01/21/22 04:51 Hep B Core IgM Ab Non-reactive (NonReactive) 01/21/22 04:51 Hepatitis C Antibody Non-reactive (NonReactive) 01/21/22 04:51 HIV DNA Qual (PCR) Detected (Not Detected) H 01/24/22 07:15 HIV-1 RNA PCR copies/ml <20 Copies/mL H 01/24/22 07:15 HIV-1 RNA (PCR) log <1.30 Log cps/mL H 01/24/22 07:15 Miscellaneous Test Flexitest 1 H 01/22/22 04:49 Blood Type O POSITIVE 01/26/22 00:08 Antibody Screen Negative 01/26/22 00:08 Crossmatch See Detail 01/26/22 00:08 Kiran/IV: Voiding Method Toilet Active Medications - Current Medications Current Medications: Generic Name Dose Route Start Last Admin Trade Name Freq PRN Reason Stop Dose Admin Acetaminophen 650 mg 01/19/22 22:50 01/28/22 08:28 Acetaminophen 325 Mg Tab PO 650 mg Q4H PRN Administration Pain MILD(1-3)/Fever >100.5/OSCAR Amlodipine Besylate 10 mg 01/20/22 10:00 01/29/22 09:15 Amlodipine 10 Mg Tab PO 10 mg QDAY JENNY Administration Calcium Acetate 667 mg 01/21/22 17:00 01/29/22 09:15 Calcium Acetate 667 Mg Cap PO 667 mg TIDWM JENNY Administration Carvedilol 25 mg 01/20/22 22:00 01/29/22 09:20 Carvedilol 25 Mg Tab PO 25 mg BID JENNY Administration Dextrose 50 ml 01/20/22 13:29 Dextrose 50% In Water (25gm) 50 Ml Syringe IV Q30MIN PRN Hypoglycemia Protocol Famotidine 20 mg 01/22/22 10:00 01/29/22 09:15 Famotidine 20 Mg Tab PO 20 mg QDAY JENNY Administration Hydralazine HCl 25 mg 01/23/22 22:00 01/29/22 06:09 Hydralazine 25 Mg Tab PO 25 mg Q8HR JENNY Administration Sodium Chloride 100 mls @ 999 mls/hr 01/27/22 08:23 Nacl 0.9% IV AUTUMN PRN Hypotension Melatonin 5 mg 01/21/22 22:00 01/28/22 22:15 Melatonin 5 Mg Tab PO 5 mg QHS JENNY Administration Minoxidil 5 mg 01/21/22 11:00 01/29/22 09:22 Minoxidil 2.5 Mg Tab PO Not Given BID JENNY Morphine Sulfate 2 mg 01/19/22 22:50 01/28/22 22:20 Morphine 2 Mg/1 Ml Inj IV 2 mg Q4H PRN Administration Pain, Moderate (4-6) Ondansetron HCl 4 mg 01/19/22 22:50 01/22/22 15:58 Ondansetron 4 Mg/2 Ml Inj IV 4 mg Q8H PRN Administration Nausea And Vomiting Sodium Chloride 10 ml 01/20/22 10:00 01/29/22 09:22 Sodium Chloride 0.9% 10 Ml Flush Syringe IV 10 ml BID JENNY Administration Sodium Chloride 10 ml 01/19/22 22:50 01/26/22 21:40 Sodium Chloride 0.9% 10 Ml Flush Syringe IV 10 ml PRN PRN Administration LINE FLUSH Nutrition/Malnutrition Assess - Dietary Evaluation Nutrition/Malnutrition Findings: Nutrition Notes Start: 01/25/22 12:30 Freq: Status: Active Protocol: Document 01/27/22 12:56 MISSY (Rec: 01/27/22 13:00 MISSY [id number]) Nutrition Notes Initial or Follow up Brief Note Usual Body Weight 86.36 kg Weight change and time frame Pt reports 7.9% unintentional wt loss over past few wks Subjective/Other Information Spoke with pt via phone. He reports no N/V at this time and says appetite is "picking up". He denies need for ONS at this time. Nutrition Intervention Follow-Up By: 02/01/22 Additional Comments F/U: intakes, wt
--- NOTE | 2022-01-29 12:45 | Progress Note ---
Assessment and Plan Assessment: Acute Kidney injury on top of CKD vs Progressive CKD, Could have HIVAN, requring dialysis initiation: S/P Hyperkalemia: Metabolic acidosis: HIV: Hypertension: Nausea and vomitinHPT from CKD: Hyperphosphatemia Plan: -Hemodialysis tomorrow for UF and clearance, placed on M,W,F schedule -S/P perm-catheter placement and first hemodialysis session on 01/22/22 -CT of Abdomen and Pelvis-No hydronephrosis -Urine studies reviewed, has proteinuria. -Hepatitis panel, C3, C4, free kappa/lambda ratio -> negative. -HIV 1 RNA PCR copies/ml was < 20 and HIV 1 RNA PCR log was < 1.30 -HIV meds on hold due to severe renal failure -Hyperphosphatemia-on Phoslo 667 mg po TID with meals -Renally dose all medications -Avoid Nephrotoxic agents -PTH high signalling 2HPT from CKD -Strict I/O's daily -Obtain daily weights -Assess dialysis needs daily -Awaiting outpatient HD placement, CM onboard -Plan of care reviewed by Dr. Rodriguez Subjective Date of service: 01/29/22 Principal diagnosis: Severe renal failure Interval history: Patient seen lying in bed. No complaints voiced. Objective - Vital Signs Vital signs: Vital Signs - 12hr 01/29/22 01/29/22 01/29/22 06:06 06:09 09:11 Temperature Pulse Rate 82 83 Respiratory Rate Blood Pressure 121/55 116/60 Blood Pressure 121/55 [Left] O2 Sat by Pulse 100 Oximetry 01/29/22 01/29/22 01/29/22 09:15 09:20 11:34 Temperature 98.8 F Pulse Rate 83 83 80 Respiratory 22 Rate Blood Pressure 116/60 116/60 92/36 Blood Pressure [Left] O2 Sat by Pulse 100 Oximetry - General Appearance General appearance: well-developed, appears stated age EENT: ATNC, PERRL, hearing intact, vision intact Neck: no JVD, supple Respiratory: Present: Decreased Breath Sounds Cardiology: S1S2 Gastrointestinal: normoactive bowel sounds Integumentary: warm and dry Neurologic: alert and oriented x3 Musculoskeletal: joint swelling, other - Lab 01/29/22 05:57 01/29/22 05:57 Most recent lab results Calcium 7.7 mg/dL (8.4-10.2) L 01/29/22 05:57 Phosphorus 4.70 mg/dL (2.5-4.5) H 01/28/22 05:32 Magnesium 2.10 mg/dL (1.7-2.3) 01/22/22 04:49 Urine Creatinine 64.2 mg/dL (0.1-20.0) H 01/20/22 15:30 Urine Sodium 83 mmol/L 01/20/22 15:30 Urine Total Protein 231 mg/dL (5-11.8) H 01/20/22 15:30 Medications & Allergies - Medications Allergies/Adverse Reactions: Allergies No Known Allergies Allergy (Verified 01/24/22 08:49) Home Medications: Home Medications Medication Instructions Recorded Confirmed Last Taken Type Calcium Carbonate [Calcium Antacid] 300 mg PO TID 01/23/22 01/24/22 Unknown History Dolutegravir [Tivicay] 50 mg PO DAILY 01/23/22 01/24/22 Unknown History Sodium Bicarbonate 1,300 mg PO TID 01/23/22 01/24/22 Unknown History amLODIPine [Norvasc] 10 mg PO DAILY 01/23/22 01/24/22 Unknown History carvediloL [Coreg] 12.5 mg PO BID 01/23/22 01/24/22 Unknown History Abacavir Sulfate/Lamivudine 1 each PO QDAY 01/24/22 01/24/22 Unknown History [Abacavir-Lamivudine 600-300 mg] Active Medications: Generic Name Dose Route Start Last Admin Trade Name Freq PRN Reason Stop Dose Admin Acetaminophen 650 mg 01/19/22 22:50 01/28/22 08:28 Acetaminophen 325 Mg Tab PO 650 mg Q4H PRN Administration Pain MILD(1-3)/Fever >100.5/OSCAR Amlodipine Besylate 10 mg 01/20/22 10:00 01/29/22 09:15 Amlodipine 10 Mg Tab PO 10 mg QDAY JENNY Administration Calcium Acetate 667 mg 01/21/22 17:00 01/29/22 12:34 Calcium Acetate 667 Mg Cap PO 667 mg TIDWM JENNY Administration Carvedilol 25 mg 01/20/22 22:00 01/29/22 09:20 Carvedilol 25 Mg Tab PO 25 mg BID JENNY Administration Dextrose 50 ml 01/20/22 13:29 Dextrose 50% In Water (25gm) 50 Ml Syringe IV Q30MIN PRN Hypoglycemia Protocol Famotidine 20 mg 01/22/22 10:00 01/29/22 09:15 Famotidine 20 Mg Tab PO 20 mg QDAY JENNY Administration Hydralazine HCl 25 mg 01/23/22 22:00 01/29/22 06:09 Hydralazine 25 Mg Tab PO 25 mg Q8HR JENNY Administration Sodium Chloride 100 mls @ 999 mls/hr 01/27/22 08:23 Nacl 0.9% IV AUTUMN PRN Hypotension Melatonin 5 mg 01/21/22 22:00 01/28/22 22:15 Melatonin 5 Mg Tab PO 5 mg QHS JENNY Administration Minoxidil 5 mg 01/21/22 11:00 01/29/22 09:22 Minoxidil 2.5 Mg Tab PO Not Given BID JENNY Morphine Sulfate 2 mg 01/19/22 22:50 01/28/22 22:20 Morphine 2 Mg/1 Ml Inj IV 2 mg Q4H PRN Administration Pain, Moderate (4-6) Ondansetron HCl 4 mg 01/19/22 22:50 01/22/22 15:58 Ondansetron 4 Mg/2 Ml Inj IV 4 mg Q8H PRN Administration Nausea And Vomiting Sodium Chloride 10 ml 01/20/22 10:00 01/29/22 09:22 Sodium Chloride 0.9% 10 Ml Flush Syringe IV 10 ml BID JENNY Administration Sodium Chloride 10 ml 01/19/22 22:50 01/26/22 21:40 Sodium Chloride 0.9% 10 Ml Flush Syringe IV 10 ml PRN PRN Administration LINE FLUSH
[2022-01-29] MEDS: MELATONIN 5 MG TAB PO SCH (22:58)
[2022-01-29] MEDS: MORPHINE 2 MG/1 ML INJ IV PRN (23:07)
[2022-01-30 06:46] LABS: Calcium 7.3 mg/dL (8.4-10.2)
[2022-01-30] MEDS: hydrALAZINE 25 MG TAB PO SCH (08:06)
[2022-01-30] MEDS: CALCIUM ACETATE 667 MG CAP PO SCH ×2 (08:07→12:49)
[2022-01-30] MEDS: amLODIPine 10 MG TAB PO SCH (10:04)
[2022-01-30] MEDS: MINOXIDIL 2.5 MG TAB PO SCH (10:04)
[2022-01-30] MEDS: carvediloL 25 MG TAB PO SCH (10:04)
--- NOTE | 2022-01-30 11:53 | Progress Note ---
Assessment and Plan Assessment: Acute Kidney injury on top of CKD vs Progressive CKD, Could have HIVAN, requring dialysis initiation: S/P Hyperkalemia: Metabolic acidosis: HIV: Hypertension: Nausea and vomitinHPT from CKD: Hyperphosphatemia Plan: -Hemodialysis today for UF and clearance -S/P perm-catheter placement and first hemodialysis session on 01/22/22 -CT of Abdomen and Pelvis-No hydronephrosis -Urine studies reviewed, has proteinuria. -Hepatitis panel, C3, C4, free kappa/lambda ratio -> negative. -HIV 1 RNA PCR copies/ml was < 20 and HIV 1 RNA PCR log was < 1.30 -HIV meds on hold due to severe renal failure -Hyperphosphatemia-on Phoslo 667 mg po TID with meals -Renally dose all medications -Avoid Nephrotoxic agents -PTH high signalling 2HPT from CKD -Strict I/O's daily -Obtain daily weights -Assess dialysis needs daily -Awaiting outpatient HD placement, CM onboard -Plan of care reviewed by Dr. Rodriguez Subjective Date of service: 01/30/22 Principal diagnosis: Severe renal failure Interval history: Patient seen lying in bed in dialysis unit, undergoing HD. Objective - Vital Signs Vital signs: Vital Signs - 12hr 01/30/22 01/30/22 01/30/22 08:06 09:03 09:11 Temperature 98.3 F Pulse Rate 77 71 69 Respiratory 17 Rate Blood Pressure 88/54 117/58 117/57 O2 Sat by Pulse 98 Oximetry [ Bilateral Throughout] 01/30/22 01/30/22 01/30/22 09:15 09:30 09:45 Temperature Pulse Rate 71 73 78 Respiratory Rate Blood Pressure 138/69 142/73 137/77 O2 Sat by Pulse Oximetry [ Bilateral Throughout] 01/30/22 01/30/22 01/30/22 10:00 10:15 10:30 Temperature Pulse Rate 78 73 75 Respiratory Rate Blood Pressure 132/75 139/62 121/65 O2 Sat by Pulse Oximetry [ Bilateral Throughout] 01/30/22 01/30/22 01/30/22 10:45 11:00 11:15 Temperature Pulse Rate 77 78 75 Respiratory Rate Blood Pressure 123/64 144/60 142/73 O2 Sat by Pulse Oximetry [ Bilateral Throughout] 01/30/22 11:30 Temperature Pulse Rate 75 Respiratory Rate Blood Pressure 133/67 O2 Sat by Pulse Oximetry [ Bilateral Throughout] - General Appearance General appearance: well-developed, appears stated age EENT: ATNC, PERRL, hearing intact, vision intact Neck: no JVD, supple Respiratory: Present: Decreased Breath Sounds Cardiology: S1S2 Gastrointestinal: normoactive bowel sounds Integumentary: warm and dry Neurologic: alert and oriented x3 Musculoskeletal: other (No edema) - Lab 01/29/22 05:57 01/30/22 05:49 Most recent lab results Calcium 7.3 mg/dL (8.4-10.2) L 01/30/22 05:49 Phosphorus 4.70 mg/dL (2.5-4.5) H 01/28/22 05:32 Magnesium 2.10 mg/dL (1.7-2.3) 01/22/22 04:49 Urine Creatinine 64.2 mg/dL (0.1-20.0) H 01/20/22 15:30 Urine Sodium 83 mmol/L 01/20/22 15:30 Urine Total Protein 231 mg/dL (5-11.8) H 01/20/22 15:30 Medications & Allergies - Medications Allergies/Adverse Reactions: Allergies No Known Allergies Allergy (Verified 01/24/22 08:49) Home Medications: Home Medications Medication Instructions Recorded Confirmed Last Taken Type Calcium Carbonate [Calcium Antacid] 300 mg PO TID 01/23/22 01/24/22 Unknown History Dolutegravir [Tivicay] 50 mg PO DAILY 01/23/22 01/24/22 Unknown History Sodium Bicarbonate 1,300 mg PO TID 01/23/22 01/24/22 Unknown History amLODIPine [Norvasc] 10 mg PO DAILY 01/23/22 01/24/22 Unknown History carvediloL [Coreg] 12.5 mg PO BID 01/23/22 01/24/22 Unknown History Abacavir Sulfate/Lamivudine 1 each PO QDAY 01/24/22 01/24/22 Unknown History [Abacavir-Lamivudine 600-300 mg] Active Medications: Generic Name Dose Route Start Last Admin Trade Name Freq PRN Reason Stop Dose Admin Acetaminophen 650 mg 01/19/22 22:50 01/28/22 08:28 Acetaminophen 325 Mg Tab PO 650 mg Q4H PRN Administration Pain MILD(1-3)/Fever >100.5/OSCAR Amlodipine Besylate 10 mg 01/20/22 10:00 01/30/22 10:04 Amlodipine 10 Mg Tab PO Not Given QDAY [facility] Calcium Acetate 667 mg 01/21/22 17:00 01/30/22 08:07 Calcium Acetate 667 Mg Cap PO 667 mg TIDWM JENNY Administration Carvedilol 25 mg 01/20/22 22:00 01/30/22 10:04 Carvedilol 25 Mg Tab PO Not Given BID [facility] Dextrose 50 ml 01/20/22 13:29 Dextrose 50% In Water (25gm) 50 Ml Syringe IV Q30MIN PRN Hypoglycemia Protocol Famotidine 20 mg 01/22/22 10:00 01/29/22 09:15 Famotidine 20 Mg Tab PO 20 mg QDAY [facility] Administration Hydralazine HCl 25 mg 01/23/22 22:00 01/30/22 08:06 Hydralazine 25 Mg Tab PO Not Given Q8HR [facility] Sodium Chloride 100 mls @ 999 mls/hr 01/27/22 08:23 Nacl 0.9% IV AUTUMN PRN Hypotension Melatonin 5 mg 01/21/22 22:00 01/29/22 22:58 Melatonin 5 Mg Tab PO 5 mg QHS [facility] Administration Minoxidil 5 mg 01/21/22 11:00 01/30/22 10:04 Minoxidil 2.5 Mg Tab PO Not Given BID [facility] Morphine Sulfate 2 mg 01/19/22 22:50 01/29/22 23:07 Morphine 2 Mg/1 Ml Inj IV 2 mg Q4H PRN Administration Pain, Moderate (4-6) Ondansetron HCl 4 mg 01/19/22 22:50 01/22/22 15:58 Ondansetron 4 Mg/2 Ml Inj IV 4 mg Q8H PRN Administration Nausea And Vomiting Sodium Chloride 10 ml 01/20/22 10:00 01/29/22 22:59 Sodium Chloride 0.9% 10 Ml Flush Syringe IV 10 ml BID JENNY Administration Sodium Chloride 10 ml 01/19/22 22:50 01/26/22 21:40 Sodium Chloride 0.9% 10 Ml Flush Syringe IV 10 ml PRN PRN Administration LINE FLUSH
--- NOTE | 2022-01-30 12:07 | Discharge Summary ---
Providers - Providers Date of Admission: 01/19/22 22:50 Date of discharge: 01/30/22 Attending physician: MEEK ORTIZ 01/19/22 22:50 Consult to Physician [CONS] Routine Comment: Consulting Provider: CHASE RENEE Physician Instructions: Reason For Exam: dawson 01/19/22 22:51 Consult to Physician [CONS] Urgent Comment: Dr. Smith spoke with Dr. Renee @ [phone] Consulting Provider: CHASE RENEE Physician Instructions: Reason For Exam: HTN emergency, acute on chronic renal failure 01/21/22 12:10 Consult to Interventional Radiology [CONS] Routine Consulting Provider: JESSICA GREEN Reason For Exam: Perm-catheter placement Place consult to:: DR. GREEN Notified:: DR. Quinones 01/28/22 12:24 Consult to Case Management [CONS] Routine Services Needed at Discharge: Other Notified:: cm Was contact made?: No Comment:: Outpatient HD placement Primary care physician: CLINICAL IMPLEMENTATION SPECIALIST Hospitalization Condition: Stable Pertinent studies: CT abdomen and pelvis Chest x-ray Renal ultrasound Procedures: Permacath placement Hospital course: This is a 36-year-old male with known past medical history of HIV/AIDS, HTN, and possible medical noncompliance admitted for hypertensive emergency and acute on chronic renal failure #Hypertensive Emergency #Possible medical Noncompliance - Presented with SBP in the 200s, s/p Cardene gtt - Hypertensive this am, SBP back up in the 200s despite schedule meds and PRN Hydralazine - X1 dose of IV labetalol given, SBP improved in the 160s - Continue current antihypertensive regimen (Coreg and Amlodipine) - Minoxidil added for better BP control - Continue blood pressure monitor per protocol - PRN Hydralazine to maintain SBP less than 160 #Acute on Chronic Renal Failure #Hyponatremia - Presented with Scr. of 32.6 and Hyperkalemia - baseline renal function is unknown - Per patient, he was informed that he had renal insufficiency by PCP and needed to follow-up with conference reservationist but has been unable to due to insurance issues - s/p IV Bumex and Bcarb gtt, - Patient remains nonoliguric - Nephrology on consult, appreciated recommendation - Strict intake and output - Avoid nephrotoxic medications; Renally dose medications - Monitor and replace electrolytes as needed #Nausea/Vomiting #Abdominal Pain-resolved #Poor PO intake - Presented with N/V, gen. weakness and fatige, elevated amylase and lipase - CT abd/pelvis shows no acute process in the abdomen or pelvis urinary tract calculi or hydronephrosis. Pancreatitis ruled out - PRN antiemetic for N/V - PRN Analgesia for pain control - Trend LFts, amylase, and lipase #H/o HIV/AIDS - Per patient viral load is undetectable - Patient admits noncompliance with meds. - ART on hold for now in the setting of worsen DAWSON. Reassess prior to discharge #Hyperglycemia - Continue BG check and SSI ACHS - Avoid Hypoglycemia #Moderate malnutrition #GI/DVT Prophylaxis - PPI- Pepcid - SCDs to bilateral lower extremities while in bed Disposition: HOME / SELF CARE / HOMELESS Final Discharge Diagnosis (Prints w/discharge instructions): Acute on chronic kidney disease/progressed to end-stage renal disease. On hemodialysis MWF. Hypertensive emergency improved. Hyponatremia resolved. Nausea vomiting resolved. Abdominal pain resolved. Poor oral intake improved. History of HIV AIDS stable. Hyperglycemia stable. Moderate malnutrition Time spent for discharge: 40 minutes Core Measure Documentation - Palliative Care Palliative Care/ Comfort Measures: Not Applicable - Core Measures Any of the following diagnoses?: none Exam - Constitutional Vitals: Temp Pulse Resp BP Pulse Ox 98.3 F 75 17 133/67 98 01/30/22 09:03 01/30/22 11:30 01/30/22 09:03 01/30/22 11:30 01/30/22 09:03 General appearance: Present: no acute distress, well-nourished - EENT Eyes: Present: PERRL, EOM intact - Neck Neck: Present: supple, normal ROM - Respiratory Respiratory effort: normal Respiratory: bilateral: diminished, negative: rales, rhonchi, wheezing - Cardiovascular Rhythm: regular Heart Sounds: Present: S1 & S2 - Extremities Extremities: no ischemia, No edema - Abdominal General gastrointestinal: Present: soft, non-tender, non-distended, normal bowel sounds - Integumentary Integumentary: Present: clear, warm - Musculoskeletal Musculoskeletal: strength equal bilaterally - Psychiatric Psychiatric: appropriate mood/affect, cooperative - Neurologic Neurologic: CNII-XII intact, moves all extremities Plan Activity: advance as tolerated Diet: renal Additional Instructions: Patient advised to go to the nearest emergency room/[facility]. On the day of dialysis to get hemodialysis. You need hemodialysis 3 times a week, Friday/Friday/Friday. Advised to see primary care physician in [facility] in 1 week Follow up with: MATTHEW STEELE MD [Primary Care Provider] - 7 Days CHASE RENEE MD [Staff Physician] - 7 Days Prescriptions: hydrALAZINE [Apresoline TAB] 25 mg PO Q8HR #90 tablet carvediloL [Coreg] 25 mg PO BID #60 tablet minoxidiL [Loniten] 5 mg PO BID #60 tablet
[2022-01-30] MEDS: FAMOTIDINE 20 MG TAB PO SCH (12:48)
[2022-01-30 13:08] VITALS: BP 125/63
== END 2022-01-30 14:55 | disposition home or self-care (01) | DRG 674 ==
LOC: ED 15:19 → CC1 22:50 → 3A 01-21 15:15
PROVIDERS: ADMIT Hospitalist; ATTEND Internal Medicine
PROC: 0JH63XZ Insertion of Tunneled Vascular Access Device into Chest Subcutaneous Tissue and Fascia, Percutaneous Approach (ICD-10-PCS; 2022-01-22)
PROC: 02H633Z Insertion of Infusion Device into Right Atrium, Percutaneous Approach (ICD-10-PCS; 2022-01-22)
PROC: B5181ZA Fluoroscopy of Superior Vena Cava using Low Osmolar Contrast, Guidance (ICD-10-PCS; 2022-01-22)
PROC: 5A1D70Z Performance of Urinary Filtration, Intermittent, Less than 6 Hours Per Day (ICD-10-PCS; 2022-01-22)
PROC: 5A1D70Z Performance of Urinary Filtration, Intermittent, Less than 6 Hours Per Day (ICD-10-PCS; 2022-01-23)
PROC: 5A1D70Z Performance of Urinary Filtration, Intermittent, Less than 6 Hours Per Day (ICD-10-PCS; 2022-01-25)
PROC: 30233N1 Transfusion of Nonautologous Red Blood Cells into Peripheral Vein, Percutaneous Approach (ICD-10-PCS; principal; 2022-01-26)
PROC: 5A1D70Z Performance of Urinary Filtration, Intermittent, Less than 6 Hours Per Day (ICD-10-PCS; 2022-01-28)
PROC: 5A1D70Z Performance of Urinary Filtration, Intermittent, Less than 6 Hours Per Day (ICD-10-PCS; 2022-01-30)
DX: N17.9 Acute kidney failure, unspecified (principal); B20 Human immunodeficiency virus [HIV] disease; E87.2 Acidosis; I16.1 Hypertensive emergency; E87.1 Hypo-osmolality and hyponatremia; E44.0 Moderate protein-calorie malnutrition; I12.0 Hypertensive chronic kidney disease with stage 5 chronic kidney disease or end stage renal disease; Z20.822 Contact with and (suspected) exposure to COVID-19; N18.6 End stage renal disease; E87.5 Hyperkalemia; N18.9 Chronic kidney disease, unspecified; E87.8 Other disorders of electrolyte and fluid balance, not elsewhere classified; R73.9 Hyperglycemia, unspecified; E83.39 Other disorders of phosphorus metabolism; N25.81 Secondary hyperparathyroidism of renal origin; Z82.49 Family history of ischemic heart disease and other diseases of the circulatory system; Z68.24 Body mass index [BMI] 24.0-24.9, adult
CPT/HCPCS: 36415; 36558; 71045; 74176; 76770; 77001; 80048; 80053; 80074; 81001; 82150; 82550; 82570; 82962; 83520; 83550; 83690; 83735; 83970; 84100; 84156; 84165; 84300; 85007; 85025; 85027; 86021; 86038; 86160; 86850; 86900; 86901; 86920; 87535; 87536; 89050; 93005; 94644; G0378; J3490; Q9967; C1750; J0360; J0610; J1644; J1815; J2270; J2405; J3010; J7030; J7040; J7050; J7070; P9016; U0003

== ENCOUNTER 2022-02-05 13:42 | Observation (INO) | payer SELFPAY ==
[2022-02-05 15:54] LABS: Basophils % (Auto) 0.5 % (0.0-1.8); Eosinophils # (Auto) 0.1 K/mm3 (0.0-0.4); Eosinophils % (Auto) 2.5 % (0.0-4.3); Hematocrit 25.4 % (35.5-45.6); Hemoglobin 8.4 gm/dl (11.8-15.2); Lymphocytes # (Auto) 1.6 K/mm3 (1.2-5.4); Lymphocytes % (Auto) 27.3 % (13.4-35.0); Mean Corpuscular HGB Conc 33 % (32-34); Mean Corpuscular Volume 89 fl (84-94); Monocytes # (Auto) 0.5 K/mm3 (0.0-0.8); Monocytes % (Auto) 8.9 % (0.0-7.3); Platelet Count 278 K/mm3 (140-440); Red Blood Count 2.85 M/mm3 (3.65-5.03); Red Cell Distribution Width 14.4 % (13.2-15.2)
[2022-02-05 16:13] LABS: Albumin 3.5 g/dL (3.9-5); Calcium 7.3 mg/dL (8.4-10.2)
--- NOTE | 2022-02-05 16:16 | Emergency Department Report ---
<MERLIN FALLON A - Last Filed: 02/05/22 16:51> ED Recheck HPI - General Chief Complaint: Medical Clearance Stated Complaint: DIAYLSIS Time Seen by Provider: 02/05/22 16:00 Source: patient Mode of arrival: Ambulatory Limitations: No Limitations - History of Present Illness Initial Comments: Pt reports he is here for dialysis. he reports he does not have a clinic that he goes to. pt reports last dialysis was completed when he was admitted here at [facility] 01/30/2022. PERMACATH INSERTED LAST ADMIT SEE DC SUMMARY 01/30/22 Complaint: other Associated Symptoms: none - Related Data Home Medications Medication Instructions Recorded Confirmed Last Taken Calcium Carbonate [Calcium Antacid] 300 mg PO TID 01/23/22 01/24/22 Unknown Dolutegravir [Tivicay] 50 mg PO DAILY 01/23/22 01/24/22 Unknown Sodium Bicarbonate 1,300 mg PO TID 01/23/22 01/24/22 Unknown amLODIPine 10 mg PO DAILY 01/23/22 01/24/22 Unknown Abacavir Sulfate/Lamivudine 1 each PO QDAY 01/24/22 01/24/22 Unknown [Abacavir-Lamivudine 600-300 mg] Previous Rx's Medication Instructions Recorded Last Taken Type carvediloL [Coreg] 25 mg PO BID #60 tablet 01/30/22 Unknown Rx hydrALAZINE [Apresoline TAB] 25 mg PO Q8HR #90 tablet 01/30/22 Unknown Rx minoxidiL [Loniten] 5 mg PO BID #60 tablet 01/30/22 Unknown Rx Allergies Allergy/AdvReac Type Severity Reaction Status Date / Time No Known Allergies Allergy Verified 01/24/22 08:49 ED Review of Systems Comment: All other systems reviewed and negative ED Past Medical Hx - Past Medical History Previous Medical History?: Yes Hx Hypertension: Yes Hx CVA: No Hx Heart Attack/AMI: No Hx Congestive Heart Failure: No Hx Diabetes: No Hx Asthma: No Hx COPD: No Hx HIV: Yes - Surgical History Past Surgical History?: Yes - Family History Family history: no significant - Social History Smoking Status: Never Smoker Substance Use Type: None - Medications Home Medications: Home Medications Medication Instructions Recorded Confirmed Last Taken Type Calcium Carbonate [Calcium Antacid] 300 mg PO TID 01/23/22 01/24/22 Unknown History Dolutegravir [Tivicay] 50 mg PO DAILY 01/23/22 01/24/22 Unknown History Sodium Bicarbonate 1,300 mg PO TID 01/23/22 01/24/22 Unknown History amLODIPine 10 mg PO DAILY 01/23/22 01/24/22 Unknown History Abacavir Sulfate/Lamivudine 1 each PO QDAY 01/24/22 01/24/22 Unknown History [Abacavir-Lamivudine 600-300 mg] carvediloL [Coreg] 25 mg PO BID #60 tablet 01/30/22 Unknown Rx hydrALAZINE [Apresoline TAB] 25 mg PO Q8HR #90 tablet 01/30/22 Unknown Rx minoxidiL [Loniten] 5 mg PO BID #60 tablet 01/30/22 Unknown Rx ED Physical Exam - General Limitations: No Limitations General appearance: alert, in no apparent distress - Head Head exam: Present: atraumatic, normocephalic - Eye Eye exam: Present: normal appearance - ENT ENT exam: Present: mucous membranes moist - Neck Neck exam: Present: normal inspection - Respiratory Respiratory exam: Present: normal lung sounds bilaterally. Absent: respiratory distress - Cardiovascular Cardiovascular Exam: Present: regular rate, normal rhythm. Absent: systolic murmur, diastolic murmur, rubs, gallop - GI/Abdominal GI/Abdominal exam: Present: soft, normal bowel sounds - Rectal Rectal exam: Present: deferred - Extremities Exam Extremities exam: Present: normal inspection - Back Exam Back exam: Present: normal inspection - Neurological Exam Neurological exam: Present: alert, oriented X3 - Psychiatric Psychiatric exam: Present: normal affect, normal mood - Skin Skin exam: Present: warm, dry, intact, normal color. Absent: rash ED Recheck MDM - Core Measures Measure Exclusions: not indicated - Medical Decision Making Lab Results 02/05/22 02/05/22 Range/Units 15:10 15:10 WBC 5.7 (4.5-11.0) K/mm3 RBC 2.85 L (3.65-5.03) M/mm3 Hgb 8.4 L (11.8-15.2) gm/dl Hct 25.4 L (35.5-45.6) % MCV 89 (84-94) fl MCH 30 (28-32) pg MCHC 33 (32-34) % RDW 14.4 (13.2-15.2) % Plt Count 278 (140-440) K/mm3 Lymph % (Auto) 27.3 (13.4-35.0) % [place] % (Auto) 8.9 H (0.0-7.3) % Eos % (Auto) 2.5 (0.0-4.3) % Baso % (Auto) 0.5 (0.0-1.8) % Lymph # (Auto) 1.6 (1.2-5.4) K/mm3 [place] # (Auto) 0.5 (0.0-0.8) K/mm3 Eos # (Auto) 0.1 (0.0-0.4) K/mm3 Baso # (Auto) 0.0 (0.0-0.1) K/mm3 Seg Neutrophils % 60.8 (40.0-70.0) % Seg Neutrophils # 3.5 (1.8-7.7) K/mm3 Sodium 133 L (137-145) mmol/L Potassium 5.6 H (3.6-5.0) mmol/L Chloride 93.5 L (98-107) mmol/L Carbon Dioxide 22 (22-30) mmol/L Anion Gap 23 mmol/L BUN 59 H (9-20) mg/dL Glucose 124 H (75-100) mg/dL Calcium 7.3 L (8.4-10.2) mg/dL Total Bilirubin 0.20 (0.1-1.2) mg/dL AST 13 (5-40) units/L ALT 9 (7-56) units/L Alkaline Phosphatase 120 (35-129) units/L Total Protein 7.3 (6.3-8.2) g/dL Albumin 3.5 L (3.9-5) g/dL Albumin/Globulin Ratio 0.9 % Vital Signs 02/05/22 15:01 Temperature 98.9 F Pulse Rate 75 Respiratory 14 Rate Blood Pressure 143/88 [Right] O2 Sat by Pulse 99 Oximetry PT HAS A/C KD WITH NEW HD ([facility] DC ON 01/30) CO SOB TODAY AND NO HD SINCE 01/30 LABS NOTED NA 133/K 5.6 12 LEAD PEAKED T WAVES IN ANT LEADS; NO ECTOPY NO OXYGEN NEED EMR REVIEWED FOR TRENDS OF LABS VSS 1620 DR SHEA NEPHROLOGY PAGED AND PT WILL GET HD IN AM DR GOODSON AWARE [address] RENEE. ADMIT OBS- PT WILL GET HD IN AM ED Disposition Clinical Impression: Acute on chronic renal failure, Hyperkalemia, HIV (human immunodeficiency virus infection) Disposition: 09 ADMITTED INPATIENT Is pt being admited?: Yes Does the pt Need Aspirin: No Condition: Stable Time of Disposition: 16:21 <PAULINE FIORE - Last Filed: 02/05/22 17:23> ED Review of Systems ROS: Stated complaint: DIAYLSIS Other details as noted in HPI ED Course Vital Signs 02/05/22 15:01 Temperature 98.9 F Pulse Rate 75 Respiratory 14 Rate Blood Pressure 143/88 [Right] O2 Sat by Pulse 99 Oximetry - Consultations Consultation #1: 02/05/22 16:57 case brought to my attention by Dr Goodson. Requesting dialysis tonight instead of the am. I spoke to Dr Renee. SHe will place orders and contact the dialysis nurse to attempt dialysis tonight. Dr Goodson aware. 02/05/22 17:04 Dr. Renee called back to state that the patient belongs to Dr Goodrich. He was called and states that patient does not have an outpatient transfer clerk and when he comes to the ER he is managed by the on-call physician. Dr. Renee recalled but apparently Dr Mari is concaving machine operator now. Awaiting jamil back 02/05/22 17:[address] admission orders. Critical care attestation.: If time is entered above; I have spent that time in minutes in the direct care of this critically ill patient, excluding procedure time.
[2022-02-05] MEDS ORDERED: ACETAMINOPHEN 325 MG TAB PO PRN (17:28)
[2022-02-05] MEDS ORDERED: ONDANSETRON 4 MG/2 ML INJ IV PRN (17:28)
[2022-02-05] MEDS ORDERED: oxyCODONE /ACETAMINOPHEN 5-325MG TAB PO PRN (17:28)
[2022-02-05] MEDS ORDERED: HYDROmorphone 0.5 MG/0.5 ML INJ IV PRN (17:28)
--- NOTE | 2022-02-05 17:31 | History and Physical Report ---
History of Present Illness Chief complaint: I need to get dialysis History of present illness: 37 YO Male with ESRD, HIV, HTN presents to ED for evaluation. Patient reports on the dialysis. Patient reports that he does not have symptoms at this time but presents to hospital because he was last dialyzed on 01/30/2022 and was told at discharge that he would need routine scheduled dialysis. Patient denies fever, chills, shortness of breath, weakness, numbness, tingling, cough. Patient states that he is compliant with outpatient medication and is at his baseline without any complaints at this time. Past History Past Medical History: ESRD, HIV/AIDS, hypertension Past Surgical History: Other (Dialysis access) Social history: single. denies: smoking, alcohol abuse, prescription drug abuse Family history: hypertension Medications and Allergies Allergies Allergy/AdvReac Type Severity Reaction Status Date / Time No Known Allergies Allergy Verified 01/24/22 08:49 Home Medications Medication Instructions Recorded Confirmed Last Taken Type Calcium Carbonate [Calcium Antacid] 300 mg PO TID 01/23/22 01/24/22 Unknown History Dolutegravir [Tivicay] 50 mg PO DAILY 01/23/22 01/24/22 Unknown History Sodium Bicarbonate 1,300 mg PO TID 01/23/22 01/24/22 Unknown History amLODIPine 10 mg PO DAILY 01/23/22 01/24/22 Unknown History Abacavir Sulfate/Lamivudine 1 each PO QDAY 01/24/22 01/24/22 Unknown History [Abacavir-Lamivudine 600-300 mg] carvediloL [Coreg] 25 mg PO BID #60 tablet 01/30/22 Unknown Rx hydrALAZINE [Apresoline TAB] 25 mg PO Q8HR #90 tablet 01/30/22 Unknown Rx minoxidiL [Loniten] 5 mg PO BID #60 tablet 01/30/22 Unknown Rx Active Meds: Active Medications Acetaminophen (Acetaminophen 325 Mg Tab) 650 mg PO Q4H PRN PRN Reason: Pain MILD(1-3)/Fever >100.5/OSCAR Hydromorphone HCl (Hydromorphone 0.5 Mg/0.5 Ml Inj) 0.5 mg IV Q23H PRN PRN Reason: Pain , Severe (7-10) Ondansetron HCl (Ondansetron 4 Mg/2 Ml Inj) 4 mg IV Q8H PRN PRN Reason: Nausea And Vomiting Oxycodone/Acetaminophen (Oxycodone /Acetaminophen 5-325mg Tab) 1 tab PO Q16H PRN PRN Reason: Pain, Moderate (4-6) Sodium Chloride (Sodium Chloride 0.9% 10 Ml Flush Syringe) 10 ml IV BID JENNY Sodium Chloride (Sodium Chloride 0.9% 10 Ml Flush Syringe) 10 ml IV PRN PRN PRN Reason: LINE FLUSH Review of Systems Constitutional: no weight loss, no weight gain, no fever, no chills Ears, nose, mouth and throat: no ear pain, no ear discharge, no decreased hearing, no nose pain, no nasal congestion, no sinus pressure Cardiovascular: no chest pain, no orthopnea, no palpitations, no rapid/irregular heart beat, no edema, no syncope, no lightheadedness, no shortness of breath, no dyspnea on exertion, no paroxysmal nocturnal dyspnea, no phlebitis, no high blood pressure, no decreased exercise tolerance Respiratory: no cough, no cough with sputum, no excessive sputum, no shortness of breath Gastrointestinal: no abdominal pain, no nausea, no vomiting, no constipation, no change in bowel habits, no coffee ground emesis Genitourinary Male: no hematuria, no flank pain, no urinary frequency, no urinary hesitancy, no nocturia, no incontinence Rectal: no pain, no incontinence, no bleeding Musculoskeletal: no neck stiffness, no neck pain, no shooting arm pain, no arm numbness/tingling, no low back pain, no shooting leg pain, no leg numbness/tingling, no redness of joints Integumentary: no rash, no pruritis, no redness, no sores, no wounds, no jaundice Neurological: no head injury, no transient paralysis, no weakness, no parathesias, no numbness, no seizures, no ataxia Psychiatric: no anxiety, no memory loss, no change in sleep habits, no sleep disturbances, no insomnia, no hypersomnia, no change in appetite, no change in libido, no suicidal ideation Endocrine: no cold intolerance, no heat intolerance, no polyphagia, no excessive thirst, no polydipsia, no polyuria, no nocturia, no excessive sweating Hematologic/Lymphatic: no easy bruising, no easy bleeding Allergic/Immunologic: no urticaria, no allergic rhinitis, no wheezing Exam - Constitutional Vitals: Temp Pulse Resp BP Pulse Ox 98.9 F 75 14 143/88 99 02/05/22 15:01 02/05/22 15:01 02/05/22 15:01 02/05/22 15:01 02/05/22 15:01 General appearance: Present: no acute distress, well-nourished - EENT Eyes: Present: PERRL ENT: hearing intact, clear oral mucosa - Neck Neck: Present: supple, normal ROM - Respiratory Respiratory effort: normal Respiratory: bilateral: CTA - Cardiovascular Heart Sounds: Present: S1 & S2. Absent: rub, click - Extremities Extremities: pulses symmetrical, No edema Peripheral Pulses: within normal limits - Abdominal General gastrointestinal: Present: soft, non-tender, non-distended, normal bowel sounds Male genitourinary: Present: normal - Integumentary Integumentary: Present: clear, warm, dry - Musculoskeletal Musculoskeletal: gait normal, strength equal bilaterally - Psychiatric Psychiatric: appropriate mood/affect, intact judgment & insight - Neurologic Neurologic: CNII-XII intact, moves all extremities Results - Labs CBC & Chem 7: 02/05/22 15:10 02/05/22 15:10 Labs: Abnormal lab results 02/05/22 02/05/22 02/05/22 Range/Units 15:10 15:10 16:22 RBC 2.85 L (3.65-5.03) M/mm3 Hgb 8.4 L (11.8-15.2) gm/dl Hct 25.4 L (35.5-45.6) % [place] % (Auto) 8.9 H (0.0-7.3) % Sodium 133 L (137-145) mmol/L Potassium 5.6 H (3.6-5.0) mmol/L Chloride 93.5 L (98-107) mmol/L BUN 59 H (9-20) mg/dL Creatinine 17.2 H (0.8-1.3) mg/dL Glucose 124 H (75-100) mg/dL Calcium 7.3 L (8.4-10.2) mg/dL Phosphorus 5.50 H (2.5-4.5) mg/dL NT-Pro-B Natriuret Pep 4813 H (0-450) pg/mL Albumin 3.5 L (3.9-5) g/dL Assessment and Plan - Patient Problems (1) End stage renal disease Current Visit: Yes Status: Acute Plan to address problem: Patient does not have outpatient dialysis chair. Patient admitted for routine scheduled dialysis. Discharge home after dialysis. Patient asymptomatic at th is time. (2) Hypertension Current Visit: Yes Status: Acute Qualifiers: Hypertension type: primary hypertension Qualified Code(s): I10 - Essential (primary) hypertension Plan to address problem: Controlled, continue prehospital antihypertensive therapy. (3) HIV (human immunodeficiency virus infection) Current Visit: No Status: Acute Qualifiers: HIV symptom status: asymptomatic, with no history of HIV-related illness Qualified Code(s): Z21 - Asymptomatic human immunodeficiency virus [HIV] infection status Plan to address problem: Controlled, continue medical management. Outpatient infectious disease follow- up. (4) DVT prophylaxis Current Visit: Yes Status: Acute Plan to address problem: SCD to bilateral lower extremities while in bed (5) Advance care planning Current Visit: Yes Status: Acute Plan to address problem: Disease education done, care plan discussed, diagnoses discussed, patient is full code, +30 minutes. (6) Preventative health care Current Visit: Yes Status: Acute Plan to address problem: Patient counseled regarding compliance with outpatient dialysis and compliance with all prehospital medication. Patient acknowledges understanding instructions. +30 minutes.
[2022-02-05] MEDS ORDERED: EPOETIN ALFA-EPBX 20,000 UNIT/1 ML VIAL IV PRN (18:12)
[2022-02-05] MEDS ORDERED: SODIUM CHLORIDE 0.9% 100 ML IV PRN (18:12)
[2022-02-05] MEDS ORDERED: CALCIUM CARBONATE 300 MG PO SCH (20:00)
[2022-02-05] MEDS ORDERED: SODIUM BICARBONATE 650 MG TAB PO SCH (20:00)
[2022-02-05] MEDS ORDERED: CALCIUM CARBONATE 500 MG TAB CHEW PO SCH (20:00)
--- NOTE | 2022-02-05 20:56 | Discharge Summary ---
Providers - Providers Date of Admission: 02/05/22 17:28 Attending physician: JOHN GOODSON Primary care physician: HAILEE COLIN Hospitalization Condition: Good Hospital course: 37 YO Male with ESRD, HIV, HTN presents to ED for evaluation. Patient reports on the dialysis. Patient reports that he does not have symptoms at this time but presents to hospital because he was last dialyzed on 01/30/2022 and was told at discharge that he would need routine scheduled dialysis. Patient denies fever, chills, shortness of breath, weakness, numbness, tingling, cough. Patient states that he is compliant with outpatient medication and is at his baseline without any complaints at this time. Patient admitted to medical floor and underwent routine dialysis. Patient medically optimized and back to usual state of health. Patient discharged home. Patient struck to follow-up with primary care physician within 1 week for further care and evaluation. Patient instructed to follow-up with outpatient dialysis as recommended. Patient pending assignment of outpatient dialysis chair. 35 minutes dedicated to patient care and discharge. Disposition: 01 HOME / SELF CARE / HOMELESS Final Discharge Diagnosis (Prints w/discharge instructions): End-stage renal disease Time spent for discharge: 35 minutes - Discharge Diagnoses (1) End stage renal disease Status: Acute (2) Hypertension Status: Acute Qualifiers: Hypertension type: primary hypertension Qualified Code(s): I10 - Essential (primary) hypertension (3) HIV (human immunodeficiency virus infection) Status: Acute Qualifiers: HIV symptom status: asymptomatic, with no history of HIV-related illness Qualified Code(s): Z21 - Asymptomatic human immunodeficiency virus [HIV] infection status (4) DVT prophylaxis Status: Acute (5) Advance care planning Status: Acute (6) Preventative health care Status: Acute Core Measure Documentation - Palliative Care Palliative Care/ Comfort Measures: Not Applicable - Core Measures Any of the following diagnoses?: none Exam - Constitutional Vitals: Temp Pulse Resp BP Pulse Ox 98.1 F 80 20 137/81 98 02/05/22 17:45 02/05/22 20:15 02/05/22 17:45 02/05/22 20:15 02/05/22 17:45 General appearance: Present: no acute distress, well-nourished - EENT Eyes: Present: PERRL ENT: hearing intact, clear oral mucosa - Neck Neck: Present: supple, normal ROM - Respiratory Respiratory effort: normal Respiratory: bilateral: CTA - Cardiovascular Heart Sounds: Present: S1 & S2. Absent: rub, click - Extremities Extremities: pulses symmetrical, No edema Peripheral Pulses: within normal limits - Abdominal General gastrointestinal: Present: soft, non-tender, non-distended, normal bowel sounds Male genitourinary: Present: normal - Integumentary Integumentary: Present: clear, warm, dry - Musculoskeletal Musculoskeletal: gait normal, strength equal bilaterally - Psychiatric Psychiatric: appropriate mood/affect, intact judgment & insight - Neurologic Neurologic: CNII-XII intact, moves all extremities Plan Activity: advance as tolerated Diet: renal Follow up with: HAILEE COLIN MD [Primary Care Provider] - 7 Days
[2022-02-05 21:09] VITALS: BP 135/83
[2022-02-05] MEDS ORDERED: hydrALAZINE 25 MG TAB PO SCH (22:00)
[2022-02-05] MEDS ORDERED: carvediloL 25 MG TAB PO SCH (22:00)
[2022-02-05] MEDS ORDERED: MINOXIDIL 2.5 MG TAB PO SCH (22:00)
[2022-02-06] MEDS ORDERED: ABACAVIR SULFATE PO SCH (10:00)
[2022-02-06] MEDS ORDERED: ABACAVIR 300 MG TAB PO SCH (10:00)
[2022-02-06] MEDS ORDERED: amLODIPine 10 MG TAB PO SCH (10:00)
[2022-02-06] MEDS ORDERED: lamoTRIgine 100 MG TAB PO SCH (10:00)
[2022-02-06] MEDS ORDERED: DOLUTEGRAVIR 50 MG TAB PO SCH (10:00)
[2022-02-06] MEDS ORDERED: [UNRECOGNIZED DRUG - OTHER] PO SCH (10:00)
[2022-02-06] MEDS ORDERED: LAMIVUDINE PO SCH (10:00)
--- NOTE | 2022-02-06 13:11 | Electrocardiograph Report ---
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
== END 2022-02-05 22:12 | disposition home or self-care (01) ==
LOC: ED 13:42 → 3A 17:28
PROVIDERS: ADMIT Internal Medicine; ATTEND Internal Medicine
DX: N17.9 Acute kidney failure, unspecified (principal); I12.0 Hypertensive chronic kidney disease with stage 5 chronic kidney disease or end stage renal disease; N18.6 End stage renal disease; E87.5 Hyperkalemia; Z21 Asymptomatic human immunodeficiency virus [HIV] infection status; Z99.2 Dependence on renal dialysis; Z79.899 Other long term (current) drug therapy; Z98.890 Other specified postprocedural states
CPT/HCPCS: 36415; 80053; 83880; 84100; 85025; 93005; 99284; G0257; G0378; J0885

== ENCOUNTER 2022-02-08 13:25 | Emergency (ER) | payer SELFPAY ==
[2022-02-08 14:35] VITALS: BP 153/95
--- NOTE | 2022-02-08 15:01 | Emergency Department Report ---
ED Recheck HPI - General Chief Complaint: Pain General Stated Complaint: MISSED DIALYSIS Time Seen by Provider: 02/08/22 14:42 Source: patient Mode of arrival: Ambulatory Limitations: No Limitations - History of Present Illness Initial Comments: 37 yo comes to ER for HD. Known to us. Here Wed. Has permacath. No cp no sob MD Complaint: other - Related Data Home Medications Medication Instructions Recorded Confirmed Last Taken Calcium Carbonate [Calcium Antacid] 300 mg PO TID 01/23/22 01/24/22 Unknown Dolutegravir [Tivicay] 50 mg PO DAILY 01/23/22 01/24/22 Unknown Sodium Bicarbonate 1,300 mg PO TID 01/23/22 01/24/22 Unknown amLODIPine 10 mg PO DAILY 01/23/22 01/24/22 Unknown Abacavir Sulfate/Lamivudine 1 each PO QDAY 01/24/22 01/24/22 Unknown [Abacavir-Lamivudine 600-300 mg] Previous Rx's Medication Instructions Recorded Last Taken Type carvediloL [Coreg] 25 mg PO BID #60 tablet 01/30/22 Unknown Rx hydrALAZINE [Apresoline TAB] 25 mg PO Q8HR #90 tablet 01/30/22 Unknown Rx minoxidiL [Loniten] 5 mg PO BID #60 tablet 01/30/22 Unknown Rx Allergies Allergy/AdvReac Type Severity Reaction Status Date / Time No Known Allergies Allergy Verified 02/08/22 14:35 ED Review of Systems ROS: Stated complaint: MISSED DIALYSIS Other details as noted in HPI Comment: All other systems reviewed and negative ED Past Medical Hx - Past Medical History Previous Medical History?: Yes Hx Hypertension: Yes Hx CVA: No Hx Heart Attack/AMI: No Hx Congestive Heart Failure: No Hx Diabetes: No Hx Asthma: No Hx COPD: No Hx HIV: Yes - Social History Smoking Status: Never Smoker Substance Use Type: None - Medications Home Medications: Home Medications Medication Instructions Recorded Confirmed Last Taken Type Calcium Carbonate [Calcium Antacid] 300 mg PO TID 01/23/22 01/24/22 Unknown History Dolutegravir [Tivicay] 50 mg PO DAILY 01/23/22 01/24/22 Unknown History Sodium Bicarbonate 1,300 mg PO TID 01/23/22 01/24/22 Unknown History amLODIPine 10 mg PO DAILY 01/23/22 01/24/22 Unknown History Abacavir Sulfate/Lamivudine 1 each PO QDAY 01/24/22 01/24/22 Unknown History [Abacavir-Lamivudine 600-300 mg] carvediloL [Coreg] 25 mg PO BID #60 tablet 01/30/22 Unknown Rx hydrALAZINE [Apresoline TAB] 25 mg PO Q8HR #90 tablet 01/30/22 Unknown Rx minoxidiL [Loniten] 5 mg PO BID #60 tablet 01/30/22 Unknown Rx ED Physical Exam - General Limitations: No Limitations General appearance: alert, in no apparent distress - Head Head exam: Present: atraumatic, normocephalic - Eye Eye exam: Present: normal appearance - ENT ENT exam: Present: mucous membranes moist - Neck Neck exam: Present: normal inspection - Respiratory Respiratory exam: Present: normal lung sounds bilaterally. Absent: respiratory distress - Cardiovascular Cardiovascular Exam: Present: regular rate, normal rhythm. Absent: systolic murmur, diastolic murmur, rubs, gallop - GI/Abdominal GI/Abdominal exam: Present: soft, normal bowel sounds - Rectal Rectal exam: Present: deferred - Extremities Exam Extremities exam: Present: normal inspection - Back Exam Back exam: Present: normal inspection - Neurological Exam Neurological exam: Present: alert, oriented X3 - Psychiatric Psychiatric exam: Present: normal affect, normal mood - Skin Skin exam: Present: warm, dry, intact, normal color. Absent: rash ED Course Vital Signs 02/08/22 14:33 Temperature 98.5 F Pulse Rate 96 H Respiratory 18 Rate Blood Pressure 153/95 [Left] O2 Sat by Pulse 99 Oximetry ED Recheck MDM - Medical Decision Making Labs 02/08/22 02/08/22 16:30 16:30 Sodium 134 L Potassium 5.0 Chloride 93.7 L Carbon Dioxide 27 Anion Gap 18 BUN 47 H Creatinine 13.8 H Estimated GFR 5 BUN/Creatinine Ratio 3 Glucose 99 Calcium 7.4 L Phosphorus 4.30 Magnesium 2.10 NT-Pro-B Natriuret Pep 6146 H Vital Signs 02/08/22 14:33 Temperature 98.5 F Pulse Rate 96 H Respiratory 18 Rate Blood Pressure 153/95 [Left] O2 Sat by Pulse 99 Oximetry labs discussed with Dr Renee- pt does not meet need for emergent HD I've explained this to pt and he has been d/c to home. He will follow up in a day or 2. Critical care attestation.: If time is entered above; I have spent that time in minutes in the direct care of this critically ill patient, excluding procedure time. ED Disposition Clinical Impression: Acute on chronic renal failure Disposition: 01 HOME / SELF CARE / HOMELESS Is pt being admited?: No Does the pt Need Aspirin: No Condition: Stable Time of Disposition: 18:36
[2022-02-08 16:50] LABS: Calcium 7.4 mg/dL (8.4-10.2)
== END 2022-02-08 23:00 | disposition home or self-care (01) ==
LOC: ED 13:25
DX: I12.0 Hypertensive chronic kidney disease with stage 5 chronic kidney disease or end stage renal disease (principal); N18.9 Chronic kidney disease, unspecified; Z99.2 Dependence on renal dialysis; Z21 Asymptomatic human immunodeficiency virus [HIV] infection status
CPT/HCPCS: 36415; 80048; 83735; 83880; 84100; 99282; 99283

== ENCOUNTER 2022-02-11 11:28 | Emergency (ER) | payer SELFPAY ==
[2022-02-11 12:03] VITALS: BP 142/97
--- NOTE | 2022-02-11 12:13 | Emergency Department Report ---
Blank Doc - Documentation Documentation: 37-year-old male that presents with missed dialysis. 1- This is a initial triage assessment/medical screening only. Full assessment and work-up will be completed once the patient is in proper hospital gown, ED bed and in a private room setting. This initial assessment/diagnostic orders/clinical plan/ treatment(s) is/are subject to change based on pt's health status, clinical progression and re-assessment by fellow clinical providers in the ED. Further treatment and workup at subsequent clinical providers discretion. Patient/guardians urged not to elope from ED as their condition may be serious if not clinically assessed and managed. 2-labs The patient was evaluated in the emergency department for symptoms described in the history of present illness. He/she was evaluated in the context of the global COVID-19 pandemic, which necessitated consideration that the patient might be at risk for infection with the virus that causes COVID-19. Institutional protocols and algorithms that pertain to the evaluation of patients at risk for COVID-19 are in a state of rapid change based on information released by regulatory bodies including the CDC and federal and state organizations. These policies and algorithms were followed during the patient's care in the emergency department. Please note that these policies, procedures and recommendations changed on a rapid basis.
[2022-02-11 12:34] LABS: Basophils % (Auto) 0.3 % (0.0-1.8); Eosinophils # (Auto) 0.1 K/mm3 (0.0-0.4); Hematocrit 25.2 % (35.5-45.6); Hemoglobin 8.2 gm/dl (11.8-15.2); Lymphocytes # (Auto) 1.3 K/mm3 (1.2-5.4); Mean Corpuscular HGB Conc 33 % (32-34); Mean Corpuscular Volume 88 fl (84-94); Monocytes # (Auto) 0.5 K/mm3 (0.0-0.8); Monocytes % (Auto) 6.7 % (0.0-7.3); Platelet Count 435 K/mm3 (140-440); Red Blood Count 2.87 M/mm3 (3.65-5.03); Red Cell Distribution Width 14.1 % (13.2-15.2)
[2022-02-11 13:00] LABS: Albumin 3.9 g/dL (3.9-5); Calcium 7.8 mg/dL (8.4-10.2)
--- NOTE | 2022-02-12 08:27 | Electrocardiograph Report ---
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
== END 2022-02-12 17:13 | disposition left against medical advice (07) ==
LOC: ED 11:28
DX: Z00.00 Encounter for general adult medical examination without abnormal findings (principal); Z53.21 Procedure and treatment not carried out due to patient leaving prior to being seen by health care provider
CPT/HCPCS: 36415; 80053; 85025; 93005